=== PATIENT | male | born 1950 | race American Indian/Alaskan Native ===

== ENCOUNTER 2017-08-18 00:49 | Inpatient (IN) | payer OTHER ==
[2017-08-18 02:27] LABS: Basophils % (Auto) 0.5 % (0.0-1.8); Eosinophils % (Auto) 0.6 % (0.0-4.3); Hematocrit 26.3 % (35.5-45.6); Hemoglobin 8.5 gm/dl (11.8-15.2); Lymphocytes # (Auto) 0.6 K/mm3 (1.2-5.4); Lymphocytes % (Auto) 8.1 % (13.4-35.0); Mean Corpuscular HGB Conc 32 % (32-34); Mean Corpuscular Hemoglobin 28 pg (28-32); Mean Corpuscular Volume 86 fl (84-94); Monocytes # (Auto) 0.6 K/mm3 (0.0-0.8); Monocytes % (Auto) 7.8 % (0.0-7.3); Platelet Count 398 K/mm3 (140-440); Red Blood Count 3.07 M/mm3 (3.65-5.03); Red Cell Distribution Width 15.7 % (13.2-15.2)
--- NOTE | 2017-08-18 02:31 | XRay Report ---
FINAL REPORT EXAM: XR CHEST ROUTINE 2V HISTORY: Shortness of breath COMPARISON: None available. FINDINGS:: Frontal and lateral views of the chest obtained. Mild cardiac enlargement. Small to moderate bilateral pleural effusions and airspace consolidations at the lung bases. Mid to upper lungs are clear. No pneumothorax. IMPRESSION:: Consolidation and effusions at the lung bases which could reflect bibasilar pneumonia or congestion.
[2017-08-18 02:46] LABS: Calcium 8.2 mg/dL (8.4-10.2)
[2017-08-18 06:27] LABS: INR 1.05 (0.87-1.13)
[2017-08-18 06:28] LABS: Partial Thromboplastin Time 39.4 Sec. (24.2-36.6)
[2017-08-18] MEDS ORDERED: LASIX IV ONE (06:35)
[2017-08-18] MEDS ORDERED: NITRO-BID 2% TP ONE (06:35)
[2017-08-18 07:05] LABS: Bacteria,Urine 2+ /HPF (Negative); Bilirubin,Urine NEG (Negative); Blood,Urine SM (Negative); Color,Urine Yellow (Yellow); Urobilinogen,Urine < 2.0 mg/dL (<2.0)
[2017-08-18 07:06] LABS: WBC,Urine > 182.0 /HPF (0.0-6.0)
[2017-08-18] MEDS ORDERED: ROCEPHIN/NS 1 GM/50 ML 1 GM/50 ML BAG IV ONE (07:11)
[2017-08-18 07:13] LABS: Amphetamine Screen,Urine PRESUMPTIVE NEGATIVE; Benzodiazepines Screen,Urine PRESUMPTIVE NEGATIVE; Cannabinoid Screen,Urine PRESUMPTIVE NEGATIVE; Chloride, Urine 54.4 mmolL (110-250); Cocaine Screen,Urine PRESUMPTIVE NEGATIVE; Methadone Screen,Urine PRESUMPTIVE NEGATIVE; Opiate Screen,Urine PRESUMPTIVE NEGATIVE
--- NOTE | 2017-08-18 07:15 | Emergency Department Report ---
ED Shortness of Breath HPI - General Chief Complaint: Dyspnea/Respdistress Stated Complaint: EDEMA EXTREMITIES Time Seen by Provider: 08/18/17 06:27 Source: patient, old records reviewed (1st vist) Mode of arrival: Ambulatory Limitations: No Limitations - History of Present Illness Initial Comments: 67-year-old male with a past medical history of hypertension (diagnosed 25 years ago and he has never taken medications) and surgical treatment for malignant myeloma in the 80s presents to the hospital with complaints of generalized swelling and dyspnea on exertion for at least 3 weeks that has been progressively worsening. Patient also has chronic orthopnea and can't remember the last time he was able lie flat. Patient denies chest pain, cough, or fever. Patient recently started taking [id number] herbal medication to help him urinate off the fluid PMD: None - Related Data Allergies Allergy/AdvReac Type Severity Reaction Status Date / Time No Known Allergies Allergy Unverified 08/18/17 01:59 ED Review of Systems ROS: Stated complaint: EDEMA EXTREMITIES Other details as noted in HPI Comment: Unobtainable due to pts medical conditions ED Past Medical Hx - Past Medical History Previous Medical History?: No - Surgical History Past Surgical History?: Yes Additional Surgical History: SX for malignant melanoma - Social History Smoking Status: Never Smoker Substance Use Type: None ED Physical Exam - General Limitations: No Limitations ED Course Vital Signs 08/18/17 08/18/17 08/18/17 01:50 04:47 05:37 Temperature 97.5 F L 98.4 F Pulse Rate 94 H 92 H Respiratory 24 20 Rate Blood Pressure 180/107 Blood Pressure 180/111 [Left] O2 Sat by Pulse 96 94 97 Oximetry 08/18/17 08/18/17 08/18/17 05:45 05:46 05:50 Temperature 97.6 F Pulse Rate 92 H 90 92 H Respiratory 14 17 14 Rate Blood Pressure 187/119 Blood Pressure 187/119 [Left] O2 Sat by Pulse 2 L 100 98 Oximetry 08/18/17 08/18/17 08/18/17 06:00 06:16 06:30 Temperature Pulse Rate 89 87 89 Respiratory 14 13 12 Rate Blood Pressure 189/122 189/122 189/122 Blood Pressure [Left] O2 Sat by Pulse 96 100 100 Oximetry 08/18/17 08/18/17 06:46 06:47 Temperature Pulse Rate 88 88 Respiratory 13 Rate Blood Pressure 187/112 187/112 Blood Pressure [Left] O2 Sat by Pulse 98 Oximetry - Consultations Consultation #1: 08/18/17 07:23 Dr Ruiz (cards) consulted, will evaluate pt Consultation #2: 08/18/17 07:[address] 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 will consult ED Medical Decision Making - Lab Data Result diagrams: 08/18/17 02:06 08/18/17 02:06 Lab Results 08/18/17 08/18/17 08/18/17 Range/Units 02:06 02:06 06:06 WBC 7.2 (4.5-11.0) K/mm3 RBC 3.07 L (3.65-5.03) M/mm3 Hgb 8.5 L (11.8-15.2) gm/dl Hct 26.3 L (35.5-45.6) % MCV 86 (84-94) fl MCH 28 (28-32) pg MCHC 32 (32-34) % RDW 15.7 H (13.2-15.2) % Plt Count 398 (140-440) K/mm3 Lymph % (Auto) 8.1 L (13.4-35.0) % [place] % (Auto) 7.8 H (0.0-7.3) % Eos % (Auto) 0.6 (0.0-4.3) % Baso % (Auto) 0.5 (0.0-1.8) % Lymph # 0.6 L (1.2-5.4) K/mm3 [place] # 0.6 (0.0-0.8) K/mm3 Eos # 0.0 (0.0-0.4) K/mm3 Baso # 0.0 (0.0-0.1) K/mm3 Seg Neutrophils % 83.0 H (40.0-70.0) % Seg Neutrophils # 6.0 (1.8-7.7) K/mm3 PT 14.3 (12.2-14.9) Sec. INR 1.05 (0.87-1.13) APTT 39.4 H (24.2-36.6) Sec. Sodium 143 (137-145) mmol/L Potassium 4.8 (3.6-5.0) mmol/L Chloride 108.0 H (98-107) mmol/L Carbon Dioxide 21 L (22-30) mmol/L Anion Gap 19 mmol/L BUN 35 H (9-20) mg/dL Creatinine 3.3 H (0.8-1.5) mg/dL Estimated GFR 23 ml/min BUN/Creatinine Ratio 11 % Glucose 76 (75-100) mg/dL Calcium 8.2 L (8.4-10.2) mg/dL Magnesium (1.7-2.3) mg/dL Total Creatine Kinase (55-170) units/L Troponin T (0.00-0.029) ng/mL NT-Pro-B Natriuret Pep (0-900) pg/mL Urine Color (Yellow) Urine Turbidity (Clear) Urine pH (5.0-7.0) Ur Specific [place] (1.003-1.030) Urine Protein (Negative) mg/dL Urine Glucose (UA) (Negative) mg/dL Urine Ketones (Negative) mg/dL Urine Blood (Negative) Urine Nitrite (Negative) Urine Bilirubin (Negative) Urine Urobilinogen (<2.0) mg/dL Ur Leukocyte Esterase (Negative) Urine WBC (Auto) (0.0-6.0) /HPF Urine RBC (Auto) (0.0-6.0) /HPF Urine Bacteria (Auto) (Negative) /HPF Urine WBC Clumps /HPF Urine Osmolality Mosm/kg Urine Sodium mmol/L Urine Chloride (110-250) mmolL Urine Opiates Screen Urine Methadone Screen Ur Barbiturates Screen Ur Phencyclidine Scrn Ur Amphetamines Screen U Benzodiazepines Scrn Urine Cocaine Screen U Marijuana (THC) Screen Drugs of Abuse Note 08/18/17 08/18/17 08/18/17 Range/Units 06:06 06:06 06:34 WBC (4.5-11.0) K/mm3 RBC (3.65-5.03) M/mm3 Hgb (11.8-15.2) gm/dl Hct (35.5-45.6) % MCV (84-94) fl MCH (28-32) pg MCHC (32-34) % RDW (13.2-15.2) % Plt Count (140-440) K/mm3 Lymph % (Auto) (13.4-35.0) % [place] % (Auto) (0.0-7.3) % Eos % (Auto) (0.0-4.3) % Baso % (Auto) (0.0-1.8) % Lymph # (1.2-5.4) K/mm3 [place] # (0.0-0.8) K/mm3 Eos # (0.0-0.4) K/mm3 Baso # (0.0-0.1) K/mm3 Seg Neutrophils % (40.0-70.0) % Seg Neutrophils # (1.8-7.7) K/mm3 PT (12.2-14.9) Sec. INR (0.87-1.13) APTT (24.2-36.6) Sec. Sodium (137-145) mmol/L Potassium (3.6-5.0) mmol/L Chloride (98-107) mmol/L Carbon Dioxide (22-30) mmol/L Anion Gap mmol/L BUN (9-20) mg/dL Creatinine (0.8-1.5) mg/dL Estimated GFR ml/min BUN/Creatinine Ratio % Glucose (75-100) mg/dL Calcium (8.4-10.2) mg/dL Magnesium 2.20 (1.7-2.3) mg/dL Total Creatine Kinase 92 (55-170) units/L Troponin T 0.027 (0.00-0.029) ng/mL NT-Pro-B Natriuret Pep 83820 H (0-900) pg/mL Urine Color Yellow (Yellow) Urine Turbidity Clear (Clear) Urine pH 5.0 (5.0-7.0) Ur Specific [place] 1.011 (1.003-1.030) Urine Protein 100 mg/dl (Negative) mg/dL Urine Glucose (UA) Neg (Negative) mg/dL Urine Ketones Neg (Negative) mg/dL Urine Blood Sm (Negative) Urine Nitrite Neg (Negative) Urine Bilirubin Neg (Negative) Urine Urobilinogen < 2.0 (<2.0) mg/dL Ur Leukocyte Esterase Lg (Negative) Urine WBC (Auto) > 182.0 H (0.0-6.0) /HPF Urine RBC (Auto) 14.0 (0.0-6.0) /HPF Urine Bacteria (Auto) 2+ (Negative) /HPF Urine WBC Clumps 3+ /HPF Urine Osmolality Mosm/kg Urine Sodium mmol/L Urine Chloride (110-250) mmolL Urine Opiates Screen Urine Methadone Screen Ur Barbiturates Screen Ur Phencyclidine Scrn Ur Amphetamines Screen U Benzodiazepines Scrn Urine Cocaine Screen U Marijuana (THC) Screen Drugs of Abuse Note 08/18/17 Range/Units 06:34 WBC (4.5-11.0) K/mm3 RBC (3.65-5.03) M/mm3 Hgb (11.8-15.2) gm/dl Hct (35.5-45.6) % MCV (84-94) fl MCH (28-32) pg MCHC (32-34) % RDW (13.2-15.2) % Plt Count (140-440) K/mm3 Lymph % (Auto) (13.4-35.0) % [place] % (Auto) (0.0-7.3) % Eos % (Auto) (0.0-4.3) % Baso % (Auto) (0.0-1.8) % Lymph # (1.2-5.4) K/mm3 [place] # (0.0-0.8) K/mm3 Eos # (0.0-0.4) K/mm3 Baso # (0.0-0.1) K/mm3 Seg Neutrophils % (40.0-70.0) % Seg Neutrophils # (1.8-7.7) K/mm3 PT (12.2-14.9) Sec. INR (0.87-1.13) APTT (24.2-36.6) Sec. Sodium (137-145) mmol/L Potassium (3.6-5.0) mmol/L Chloride (98-107) mmol/L Carbon Dioxide (22-30) mmol/L Anion Gap mmol/L BUN (9-20) mg/dL Creatinine (0.8-1.5) mg/dL Estimated GFR ml/min BUN/Creatinine Ratio % Glucose (75-100) mg/dL Calcium (8.4-10.2) mg/dL Magnesium (1.7-2.3) mg/dL Total Creatine Kinase (55-170) units/L Troponin T (0.00-0.029) ng/mL NT-Pro-B Natriuret Pep (0-900) pg/mL Urine Color (Yellow) Urine Turbidity (Clear) Urine pH (5.0-7.0) Ur Specific [place] (1.003-1.030) Urine Protein (Negative) mg/dL Urine Glucose (UA) (Negative) mg/dL Urine Ketones (Negative) mg/dL Urine Blood (Negative) Urine Nitrite (Negative) Urine Bilirubin (Negative) Urine Urobilinogen (<2.0) mg/dL Ur Leukocyte Esterase (Negative) Urine WBC (Auto) (0.0-6.0) /HPF Urine RBC (Auto) (0.0-6.0) /HPF Urine Bacteria (Auto) (Negative) /HPF Urine WBC Clumps /HPF Urine Osmolality 328 Mosm/kg Urine Sodium 57 mmol/L Urine Chloride 54.4 L (110-250) mmolL Urine Opiates Screen Presumptive negative Urine Methadone Screen Presumptive negative Ur Barbiturates Screen Presumptive negative Ur Phencyclidine Scrn Presumptive negative Ur Amphetamines Screen Presumptive negative U Benzodiazepines Scrn Presumptive negative Urine Cocaine Screen Presumptive negative U Marijuana (THC) Screen Presumptive negative Drugs of Abuse Note Disclamer - EKG Data -: EKG Interpreted by Ak EKG shows normal: sinus rhythm, axis (71), QRS complexes (86), ST-T waves ( nonspecific t abnl) Rate: normal (71) - EKG Data When compared to previous EKG there are: previous EKG unavailable - Radiology Data Radiology results: report reviewed cxr PA and lat FINDINGS:: Frontal and lateral views of the chest obtained. Mild cardiac enlargement. Small to moderate bilateral pleural effusions and airspace consolidations at the lung bases. Mid to upper lungs are clear. No pneumothorax. IMPRESSION:: Consolidation and effusions at the lung bases which could reflect bibasilar pneumonia or congestio - Medical Decision Making Uncontrolled hypertension Patient has never been on medication Nitropaste ordered Newly diagnosed heart failure Likely secondary to noncompliance Lasix initiated Cardiology consultation Newly diagnosed renal failure Nephrology consulted Urine electrolytes pending UTI Rocephin initiated Culture pending - Differential Diagnosis CHF, renal failure, hypertensive emergency/urgency Critical Care Time: No Critical care attestation.: If time is entered above; I have spent that time in minutes in the direct care of this critically ill patient, excluding procedure time. ED Disposition Clinical Impression: Hypertension, uncontrolled, Noncompliance with medication regimen, Acute CHF ( congestive heart failure), Renal insufficiency, UTI (urinary tract infection), Anemia Disposition: DC-[id number] OP ADMIT IP TO THIS HOSP Is pt being admited?: Yes Condition: Stable Referrals: PRIMARY CARE,MD [Primary Care Provider] - 3-5 Days Time of Disposition: 07:13 (Hospitalist/Summer/Gabriella)
[2017-08-18 07:21] LABS: Osmolality,Urine 328 Mosm/kg
--- NOTE | 2017-08-18 07:40 | History and Physical Report ---
History of Present Illness Date of examination: 08/18/17 Date of admission: 08/18/17 Chief complaint: breathing difficulty History of present illness: 67-year-old male with a past medical history of hypertension (diagnosed 25 years ago and he has never taken medications) presented to the hospital with complaints of generalized swelling and progressively worsening dyspnea on exertion for at least 3 weeks. Patient also c/o chronic orthopnea and can't remember the last time he was able lie flat. Patient denies chest pain, cough, or fever. In the ER his blood pressure was 180/107 on presentation. Initial labs notable for a creatinine of 3.3 and a hematocrit of 26.3. Patient will be admitted for further workup and management. Past medical History: h/o HTN Past surgical History: s/p surgical resection of MM about 30 years ago Social History: Lives with family, denies any smoking, drinking and elicit drug abuse. Family History: Significant for HTN in mother Review of System: Constitutional: no fever, no chills, no weight loss Ears, eyes, nose, mouth and throat: no nasal congestion, no nasal discharge, no sinus pressure, no vision change, no red eye. Neck: No neck pain or rigidity. Cardiovascular: No chest pain, + orthopnea, no palpitations, + leg swelling Respiratory: + shortness of breath, no cough, no congestion, no wheezing Gastrointestinal: no abdominal pain, no nausea, no vomiting Genitourinary : no dysuria, no hematuria Musculoskeletal: no joint swelling or muscle ache Integumentary: no rash, no pruritis Neurological: no parathesias, no numbness, no tingling Endocrine: no cold or heat intolerance, no polyuria or polydipsia Hematologic/Lymphatic: no easy bruising, no easy bleeding, no gland swelling Allergic/Immunologic: no urticaria, no angioedema. Medications and Allergies Allergies Allergy/AdvReac Type Severity Reaction Status Date / Time No Known Allergies Allergy Unverified 08/18/17 01:59 Home Medications Medication Instructions Recorded Confirmed Last Taken Type No Known Home Medications [No 08/18/17 08/18/17 Unknown History Reported Home Medications] Active Meds: Active Medications Amlodipine Besylate (Norvasc) 10 mg PO ONCE ONE Stop: 08/18/17 07:38 Carvedilol (Coreg) 3.125 mg PO ONCE ONE Stop: 08/18/17 07:38 Ceftriaxone Sodium (Rocephin/Ns 1 Gm/50 Ml) 1 gm in 50 mls @ 100 mls/hr IV ONCE ONE; Protocol Stop: 08/18/17 07:40 Exam - Physical Exam Narrative exam: GENERAL: elderly AAM lying on bed appeared to be in mild discomfort. HEENT: Normocephalic. Atraumatic. No conjunctival congestion or icterus. Patient has moist mucous membranes. NECK: Supple. Trachea midline. CHEST/LUNGS: Ccrackles auscultated bilaterally, breathing nonlabored. No wheezes or rhonchi. HEART/CARDIOVASCULAR: Regular in rate and rhythm. S1 and S2 positive. ABDOMEN: Abdomen is soft, nontender. Patient has normal bowel sounds. SKIN: There is no rash. Warm and dry. NEURO: No focal motor deficit. Follows command. MUSCULOSKELETAL: No joint effusion or tenderness. EXTRIMITY: 3+ edema, no cyanosis or clubbing. PSYCH: Cooperative. - Constitutional Vitals: Temp Pulse Resp BP Pulse Ox 97.6 F 88 13 187/112 98 08/18/17 05:50 08/18/17 06:47 08/18/17 06:46 08/18/17 06:47 08/18/17 06:46 Results - Labs CBC & Chem 7: 08/18/17 02:06 08/19/17 10:19 Labs: Abnormal lab results 08/18/17 08/18/17 08/18/17 Range/Units 02:06 02:06 06:06 RBC 3.07 L (3.65-5.03) M/mm3 Hgb 8.5 L (11.8-15.2) gm/dl Hct 26.3 L (35.5-45.6) % RDW 15.7 H (13.2-15.2) % Lymph % (Auto) 8.1 L (13.4-35.0) % [place] % (Auto) 7.8 H (0.0-7.3) % Lymph # 0.6 L (1.2-5.4) K/mm3 Seg Neutrophils % 83.0 H (40.0-70.0) % APTT 39.4 H (24.2-36.6) Sec. Chloride 108.0 H (98-107) mmol/L Carbon Dioxide 21 L (22-30) mmol/L BUN 35 H (9-20) mg/dL Creatinine 3.3 H (0.8-1.5) mg/dL Calcium 8.2 L (8.4-10.2) mg/dL NT-Pro-B Natriuret Pep (0-900) pg/mL Urine WBC (Auto) (0.0-6.0) /HPF Urine Chloride (110-250) mmolL 08/18/17 08/18/17 08/18/17 Range/Units 06:06 06:34 06:34 RBC (3.65-5.03) M/mm3 Hgb (11.8-15.2) gm/dl Hct (35.5-45.6) % RDW (13.2-15.2) % Lymph % (Auto) (13.4-35.0) % [place] % (Auto) (0.0-7.3) % Lymph # (1.2-5.4) K/mm3 Seg Neutrophils % (40.0-70.0) % APTT (24.2-36.6) Sec. Chloride (98-107) mmol/L Carbon Dioxide (22-30) mmol/L BUN (9-20) mg/dL Creatinine (0.8-1.5) mg/dL Calcium (8.4-10.2) mg/dL NT-Pro-B Natriuret Pep 96634 H (0-900) pg/mL Urine WBC (Auto) > 182.0 H (0.0-6.0) /HPF Urine Chloride 54.4 L (110-250) mmolL - Imaging and Cardiology Chest x-ray: report reviewed (consolidation at lung bases) Assessment and Plan Acute respiratory failure -Likely from underlying pneumonia versus possible CHF exacerbation - - We'll admit the patient to telemetry - Will provide scheduled nebulizers and breathing treatment - Place on empiric antibiotic - will get sputum culture, chest x-ray showed possible bilateral pneumonia vs effusion - Provide supplemental oxygen to keep oxygen saturation above 92% -We will also give 1 dose of Lasix for possible CHF will obtain 2-D echo, Bilateral pneumonia versus primary physician - We'll place on antibiotics and Lasix - Repeat chest x-ray tomorrow morning UTI, continue antibiotics, follow culture Hypertensive urgency - We will place on Norflex and Coreg, monitor BP , as needed IV hydralazine Acute renal failure - We'll monitor renal function carefully - Nephrology consulted in the ER, ordered renal Ultrasound Provide DVT prophylaxis with heparin and GI prophylaxis with Pepcid.
[2017-08-18] MEDS ORDERED: COREG PO NR (08:00)
[2017-08-18] MEDS ORDERED: NORVASC PO NR (08:00)
[2017-08-18] MEDS ORDERED: cefTRIAXone 1 GM in NACL 0.9% 20 ML IV ONE (08:00)
--- NOTE | 2017-08-18 09:05 | Consultation ---
History of Present Illness - History of Present Illness Thank you for the consultation patient was evaluated today. Source of information; patient himself History of presenting illness; Patient is a very pleasant 67-year-old -[place] male with long-standing history of hypertension diagnosed by Dr. Caldera, approximately 25 years ago and was later suggested to start medications for blood pressure however did not want to commit to a blood pressure medication for life and change to a vegan diet. Remotely he has a history of malignant melanoma of the right shoulder which was resected in and ever since admission, presented to hospital with complaints of increasing shortness of breath and worsening edema upon further verification patient stated that his leg started swelling ever since last 6 months and currently the swelling is all the way up to his lower abdomen. He finds very difficult to walk and often times would get shortness of breath, he has not had any blood work done for the last many many years so we do not know his baseline kidney function, he has no known history of any lupus hepatitis B C paraproteinemias are HIV No history of any frequent epistaxis, unexplained skin rashes or arthralgias myalgias, no difficulty voiding does not take any form of nonsteroidal drugs BCs of Goody's powder Past medical history significant for: Long-standing hypertension control is not clear Worsening edema Chronic noncompliance Malignant melanoma Current allergies: None Home medication: None Social history no recent history alcohol drug or tobacco use Family history: Noncontributory, for renal related issues Review of system is positive for worsening swelling shortness of breath, weight gain approximately 40 pounds over last 6 months or so, uncontrolled hypertension noted All other review of systems are negative , Labs and x-rays: Were reviewed from the current chart Physical examination General: No acute distress HEENT: Oral mucosa moist no pharyngeal erythema no pallor or icterus no uremic order Neck: Supple no evidence of any thyromegaly trachea midline no JVD Chest: Clear to auscultation no crackles are also wheezes anteriorly Heart: Regular rate and rhythm S1-S2 heard no S3-S4 Abdomen: Soft nontender no renal bruit no CVA tenderness no suprapubic fullness no organomegaly, some edema of the lower abdominal wall Extremity:dry skin assessment and plan no peripheral cyanosis pulses palpable, 2 + edema generalized all the way up to the thigh Neurological: Alert awake follows command grossly nonfocal examination Back: Nontender thoracolumbar spine Musculoskeletal: No joint effusion noted Skin: No petechial rash/noted Assessment and plan Moderately severe renal failure and the patient was 67-year-old has long- standing history of hypertension never took any medications presenting with severe generalized anasarca-like picture shortness of breath elevated proBNP uncontrolled hypertension anemia Likely we are dealing with a case of chronic kidney disease: Patient will need further workup for renal failure, anemia Proteinuria: Need to do a 24-hour urine for protein creatinine and creatinine clearance Anemia: Requires further workup accelerated hypertension: Needs monitoring and adjustment of blood pressure medication Congestive heart failure likely resulting from fluid overload Pyuria rule out urinary tract infection, obstruction check ultrasonogram urine culture We will order for all renal-related labs Check aldosterone and plasma renin level due to uncontrolled hypertension,to rule out any possibility of secondary hypertension, need to rule out any possibility of sleep apnea Renal prognosis is guarded patient is aware about the degree and severity of renal failure, explained him that there is no immediate need for renal replacement therapy at this time but could not be excluded in near future, we' ll look for any causes that could be reversible Adequately counseled and educated regarding multiple renal-related issues Patient does have good understanding about renal-related issues. Counseled and educated to get further education from [facility] and related links, and upon discharge to make a follow-up appointment in the office We'll continue to follow and make recommendations from renal standpoint. If you have any questions please feel free to contact me at [phone] Thank you for the consultation. Medications and Allergies Allergies Allergy/AdvReac Type Severity Reaction Status Date / Time No Known Allergies Allergy Unverified 08/18/17 01:59 Home Medications Medication Instructions Recorded Confirmed Last Taken Type No Known Home Medications [No 08/18/17 08/18/17 Unknown History Reported Home Medications] Exam - Vital Signs Vital signs: Vital Signs Temp Pulse Resp BP Pulse Ox 97.5 F L 94 H 24 180/107 96 08/18/17 01:50 08/18/17 01:50 08/18/17 01:50 08/18/17 01:50 08/18/17 01:50 Results - Lab Results 08/18/17 02:06 08/18/17 02:06 Most recent lab results Calcium 8.2 mg/dL (8.4-10.2) L 08/18/17 02:06 Magnesium 2.20 mg/dL (1.7-2.3) 08/18/17 06:06 Urine Sodium 57 mmol/L 08/18/17 06:34
[2017-08-18] MEDS ORDERED: cefTRIAXone 1 GM in NACL 0.9% 20 ML IV SCH (10:00)
--- NOTE | 2017-08-18 10:15 | Consultation ---
History of Present Illness Consult date: 08/18/17 Consult reason: congestive heart failure History of present illness: This is a 67yr old male who gives a history of Hypertension and has not taken any medications or seen a physician in several years. He presented to the emergency room with a 4 week history of shortness of breath and severe edema extending upwards to his thighs. He denies chest pain. Blood pressure of 180/ 107 on presentation. Labs notable for a creatinine of 3.3 and a hematocrit of 26.3. Patient was admitted for further workup, cardiac consultation was requested for CHF evaluation. ECG is a sinus rhythm, no acute ischemic changes. Medications and Allergies Allergies Allergy/AdvReac Type Severity Reaction Status Date / Time No Known Allergies Allergy Unverified 08/18/17 01:59 Home Medications Medication Instructions Recorded Confirmed Last Taken Type No Known Home Medications [No 08/18/17 08/18/17 Unknown History Reported Home Medications] Physical Examination Vital Signs Temp Pulse Resp BP Pulse Ox 97.5 F L 94 H 24 180/107 96 08/18/17 01:50 08/18/17 01:50 08/18/17 01:50 08/18/17 01:50 08/18/17 01:50 General appearance: no acute distress HEENT: Positive: PERRL Cardiac: Positive: Reg Rate and Rhythm Lungs: Positive: Decreased Breath Sounds Neuro: Positive: Grossly Intact Extremities: Present: +3 Edema Results 08/18/17 02:06 08/18/17 02:06 Coagulation 08/18/17 Range/Units 06:06 PT 14.3 (12.2-14.9) Sec. INR 1.05 (0.87-1.13) APTT 39.4 H (24.2-36.6) Sec. CBC 08/18/17 Range/Units 02:06 WBC 7.2 (4.5-11.0) K/mm3 RBC 3.07 L (3.65-5.03) M/mm3 Hgb 8.5 L (11.8-15.2) gm/dl Hct 26.3 L (35.5-45.6) % Plt Count 398 (140-440) K/mm3 Lymph # 0.6 L (1.2-5.4) K/mm3 [place] # 0.6 (0.0-0.8) K/mm3 Eos # 0.0 (0.0-0.4) K/mm3 Baso # 0.0 (0.0-0.1) K/mm3 Comprehensive Metabolic Panel 08/18/17 Range/Units 02:06 Sodium 143 (137-145) mmol/L Potassium 4.8 (3.6-5.0) mmol/L Chloride 108.0 H (98-107) mmol/L Carbon Dioxide 21 L (22-30) mmol/L BUN 35 H (9-20) mg/dL Creatinine 3.3 H (0.8-1.5) mg/dL Glucose 76 (75-100) mg/dL Calcium 8.2 L (8.4-10.2) mg/dL Assessment and Plan Acute CHF, undetermined Acute renal failure Anemia Hypertension
[2017-08-18] MEDS ORDERED: APRESOLINE IV PRN (11:42)
[2017-08-18] MEDS ORDERED: NORCO 5/325 PO PRN (11:42)
[2017-08-18] MEDS: NORVASC PO SCH (12:01)
[2017-08-18] MEDS: ASPIRIN PO SCH (13:01)
[2017-08-18] MEDS: APRESOLINE PO SCH ×2 (14:11→22:42)
[2017-08-18] MEDS ORDERED: LEVAQUIN 750MG/150ML 750 MG/150 ML BAG IV ONE (16:00)
--- NOTE | 2017-08-18 16:01 | Ultrasound Report ---
FINAL REPORT EXAM: US RENAL BILAT HISTORY: renal failure TECHNIQUE: Grayscale and color doppler ultrasound imaging of the kidneys and urinary bladder was performed. PRIORS: None. FINDINGS: Kidneys: Moderate bilateral hydronephrosis is seen. The maximum AP dimension of the right renal pelvis is 3.0 centimeters. Maximum AP dimension of the left renal pelvis is 1.9 centimeters. No renal masses. No calculi. No renal cysts. No renal cortical thinning. The right kidney measures 11.5 x 5.8 x 6.9 centimeters. The left kidney measures 11.7 x 5.9 x 6.5 centimeters. Urinary bladder: No wall thickening. A lobulated masslike lesion is seen in the posterior aspect of the urinary bladder measuring 2.7 x 2.2 x 2.7 centimeters. No internal color flow is seen within this area. Bilateral pleural effusions are seen. IMPRESSION: 1. Lobulated masslike area in the posterior aspect of the urinary bladder may represent loculated debris versus a bladder mass. 2. Moderate bilateral hydronephrosis. 3. Bilateral pleural effusions.
[2017-08-18] MEDS: PEPCID PO SCH (22:26)
[2017-08-18] MEDS: COREG PO SCH (22:27)
[2017-08-18] MEDS: HEPARIN SUB-Q SCH (22:27)
[2017-08-18] MEDS: COLACE PO SCH (22:27)
[2017-08-19 06:28] LABS: Calcium 7.9 mg/dL (8.4-10.2)
[2017-08-19] MEDS: APRESOLINE PO SCH ×3 (06:55→21:27)
--- NOTE | 2017-08-19 09:50 | Progress Note ---
Subjective Interval history: Patient was seen today for follow-up on multiple renal related issues Events of this hospitalization noted He is getting much better idea of his renal failure now Patient denies having any chest pain pressure or shortness of breath Vitals labs intake output medications were reviewed Social history: Reviewed Allergies: Reviewed Family history: Reviewed Physical examination HEENT: Oral mucosa moist no pallor or icterus Neck: Supple no JVD Chest: Bilateral basilar crackles CVS: Regular rate and rhythm S1 and S2 heard Abdomen: Soft nontender no suprapubic masses no organomegaly appreciable Extremity: 2+ edema all the way up to mid abdomen Musculoskeletal: No joint effusion noted in knees and ankle Neurological: Alert awake Dermatology: No petechial rashes Psychiatry: No evidence of any agitation and aggression noted Assessment and plan Renal failure likely chronic patient does have multiple risk factor for underlying chronic kidney disease primarily uncontrolled hypertension workup is in progress for now to follow current creatinine is stable at 3.4 Ultrasonogram shows possible bladder mass as well as hydronephrosis please consider urology evaluation Santana catheter for now and follow-up Admitted with congestive heart failure likely picture, generalized anasarca continue to diurese as tolerated with combination off loop diuretic's, as well as Aldactone would not initiate any form of FELICIANO inhibitors or angiotensin receptor aaron for now Anemia most likely resulting from chronic kidney disease to monitor and follow Pyuria current culture is pending Proteinuria approximately 100 mg and random urine specimen Will need 24-hour urine collection to appropriately stages renal failure and monitor his renal function Uncontrolled hypertension with relatively normal potassium check chetna plasma renin level and follow Accelerated hypertension: Currently much better controlled Renal prognosis guarded to poor S patient has never followed up with physician for last 2 decades and was told to have hypertension approximately 25 years ago but never treated Patient was adequately counseled and educated regarding multiple renal related issues Pertinent lab findings were discussed with patient, patient does exhibit good understanding of renal issues We'll continue to follow and make recommendation from renal standpoint Objective - Vital Signs Vital signs: Vital Signs - 12hr 08/18/17 08/18/17 08/18/17 22:00 22:13 22:27 Temperature Pulse Rate 88 87 Pulse Rate [ 87 Left Radial] Respiratory 18 Rate Blood Pressure 110/80 Blood Pressure [Left] O2 Sat by Pulse Oximetry 08/18/17 08/19/17 08/19/17 22:42 00:19 06:36 Temperature 97.3 F L 97.9 F Pulse Rate 87 80 78 Pulse Rate [ Left Radial] Respiratory 20 20 Rate Blood Pressure 110/80 132/81 136/70 Blood Pressure [Left] O2 Sat by Pulse 97 96 Oximetry 08/19/17 08/19/17 06:55 07:37 Temperature 98.6 F Pulse Rate 78 81 Pulse Rate [ Left Radial] Respiratory 20 Rate Blood Pressure 136/70 Blood Pressure 142/89 [Left] O2 Sat by Pulse 98 Oximetry - Lab 08/18/17 02:06 08/19/17 10:19 Most recent lab results Calcium 7.9 mg/dL (8.4-10.2) L 08/19/17 05:07 Magnesium 2.20 mg/dL (1.7-2.3) 08/18/17 06:06 Urine Sodium 57 mmol/L 08/18/17 06:34
[2017-08-19] MEDS ORDERED: ROCEPHIN/NS 1 GM/50 ML 1 GM/50 ML BAG IV SCH (10:00)
[2017-08-19] MEDS ORDERED: LASIX IV SCH (10:00)
[2017-08-19] MEDS: NORVASC PO SCH (10:17)
[2017-08-19] MEDS: COLACE PO SCH ×2 (10:17→21:27)
[2017-08-19] MEDS: PEPCID PO SCH ×2 (10:17→21:27)
[2017-08-19] MEDS: COREG PO SCH ×2 (10:17→21:27)
[2017-08-19] MEDS: ASPIRIN PO SCH (10:18)
[2017-08-19] MEDS: cefTRIAXone 1 GM in NACL 0.9% 20 ML IV SCH (10:18)
[2017-08-19] MEDS: HEPARIN SUB-Q SCH ×2 (10:19→21:26)
--- NOTE | 2017-08-19 10:46 | Progress Note ---
Assessment and Plan Acute CHF, undetermined Acute on chronic renal failure Anemia Bilateral pleural effusions Hypertension Echocardiogram results are pending. Subjective Date of service: 08/19/17 Interval history: Patient is still short of breath. He denies chest pain. Objective Vital Signs Temp Pulse Pulse Resp BP BP Pulse Ox 08/19/17 07:37 98.6 F 81 20 142/89 98 08/19/17 06:55 78 136/70 08/19/17 06:36 97.9 F 78 20 136/70 96 08/19/17 00:19 97.3 F L 80 20 132/81 97 08/18/17 22:42 87 110/80 08/18/17 22:27 87 110/80 08/18/17 22:13 88 08/18/17 22:00 87 18 08/18/17 20:06 98.4 F 87 20 110/80 92 08/18/17 16:58 97.9 F 85 20 141/86 98 08/18/17 12:10 97.8 F 88 20 179/106 96 - Physical Examination General: No Apparent Distress HEENT: Positive: PERRL Cardiac: Positive: Reg Rate and Rhythm Lungs: Positive: Decreased Breath Sounds Neuro: Positive: Grossly Intact Extremities: Present: +3 Edema - Labs and Meds Comprehensive Metabolic Panel 08/19/17 Range/Units 05:07 Sodium 144 (137-145) mmol/L Potassium 4.2 (3.6-5.0) mmol/L Chloride 109.3 H (98-107) mmol/L Carbon Dioxide 23 (22-30) mmol/L BUN 35 H (9-20) mg/dL Creatinine 3.4 H (0.8-1.5) mg/dL Glucose 83 (75-100) mg/dL Calcium 7.9 L (8.4-10.2) mg/dL
[2017-08-19 11:25] LABS: Creatinine,Urine 42.7 mg/dL (0.1-20.0)
--- NOTE | 2017-08-19 14:08 | Progress Note ---
Assessment and Plan Acute respiratory failure -Likely from underlying pleural effusion and acute CHF exacerbation - chest x-ray showed possible bilateral effusion - Provide supplemental oxygen to keep oxygen saturation above 92% -We will cont Lasix iv bid Acute CHF with systolic dysfuction - 2d echo showed EF 15-20% - cont lasix, BB - cardiology following Volume overload with generalized anasarca - from acute CHF and renal failure - daily wt, monitor ins/os Bilateral pleural effusion - We'll cont Lasix - Repeat chest x-ray to monitor UTI, continue antibiotics, follow culture Bilateral hydronephrosis with possible bladder mass - will consult urology Hypertensive urgency - We will cont on norvasc, lasix, imdur and Coreg, monitor BP , as needed IV hydralazine Acute renal failure - We'll monitor renal function carefully - Nephrology consulted in the ER, renal Ultrasound showed hydronephrosis and possible bladder mass Provide DVT prophylaxis with heparin and GI prophylaxis with Pepcid. Brief history: 67-year-old male with a past medical history of hypertension (diagnosed 25 years ago and he has never taken medications) presented to the hospital with complaints of generalized swelling and progressively worsening dyspnea on exertion for at least 3 weeks. Patient also c/o chronic orthopnea and can't remember the last time he was able lie flat. Patient denies chest pain, cough, or fever. In the ER his blood pressure was 180/107 on presentation. Initial labs notable for a creatinine of 3.3 and a hematocrit of 26.3. Patient will be admitted for further workup and management. Radiological test: Renal ultrasound: No. Masslike area in the posterior aspect of the urinary bladder may represent loculated depressed versus a bladder mass. Moderate bilateral hydronephrosis, bilateral pleural effusion. Chest x-ray: Consolidation and effusions at the lung bases which would really like bibasilar pneumonia or congestion Hospitalist Physical exam: GENERAL: elderly AAM lying on bed appeared to be in mild discomfort. HEENT: Normocephalic. Atraumatic. No conjunctival congestion or icterus. Patient has moist mucous membranes. NECK: Supple. Trachea midline. CHEST/LUNGS: Ccrackles auscultated bilaterally, breathing nonlabored. No wheezes or rhonchi. HEART/CARDIOVASCULAR: Regular in rate and rhythm. S1 and S2 positive. ABDOMEN: Abdomen is soft, nontender. Patient has normal bowel sounds. SKIN: There is no rash. Warm and dry. NEURO: No focal motor deficit. Follows command. MUSCULOSKELETAL: No joint effusion or tenderness. EXTRIMITY: 3+ edema, no cyanosis or clubbing. PSYCH: Cooperative. Subjective Date of service: 08/19/17 Interval history: Patient seen and examined. Medical records and medication list reviewed. No acute event overnight noted by the RN. Patient denies any chest pain, still has difficulty breathing on minimal exertion. Patient is tolerating diet. still has significant LE swelling Discussed plan of care at bedside with patient. Objective - Constitutional Vitals: Vital Signs - 12hr 08/19/17 08/19/17 08/19/17 06:36 06:55 07:37 Temperature 97.9 F 98.6 F Pulse Rate 78 78 81 Pulse Rate [ From Monitor] Respiratory 20 20 Rate Blood Pressure 136/70 136/70 Blood Pressure 142/89 [Left] O2 Sat by Pulse 96 98 Oximetry 08/19/17 10:00 Temperature Pulse Rate 89 Pulse Rate [ 81 From Monitor] Respiratory 20 Rate Blood Pressure Blood Pressure [Left] O2 Sat by Pulse 98 Oximetry - Labs CBC & Chem 7: 08/18/17 02:06 08/19/17 10:19 Labs: Abnormal lab results 08/19/17 08/19/17 08/19/17 Range/Units 05:07 10:19 Unknown Chloride 109.3 H (98-107) mmol/L BUN 35 H (9-20) mg/dL Creatinine 3.4 H 3.3 H (0.8-1.5) mg/dL Calcium 7.9 L (8.4-10.2) mg/dL Urine Creatinine 42.7 H (0.1-20.0) mg/dL Urine Total Protein 41 H (5-11.8) mg/dL
[2017-08-19] MEDS: LASIX IV SCH (17:37)
[2017-08-19 21:23] LABS: Alanine Aminotransferase 14 units/L (7-56); Albumin 2.4 g/dL (3.9-5)
[2017-08-19 21:27] LABS: Bilirubin,Direct < 0.2 mg/dL (0-0.2)
[2017-08-19] MEDS: ISORDIL TITRADOSE PO SCH (21:27)
[2017-08-19] MEDS: MILRINONE-D5W 20 MG/100 ML 20 MG/100 ML BAG IV SCH (21:34)
[2017-08-20] MEDS: APRESOLINE PO SCH ×3 (05:08→22:15)
[2017-08-20] MEDS: LASIX IV SCH ×2 (05:08→17:29)
[2017-08-20] MEDS: ISORDIL TITRADOSE PO SCH ×3 (05:09→22:14)
[2017-08-20] MEDS: MILRINONE-D5W 20 MG/100 ML 20 MG/100 ML BAG IV SCH ×3 (05:15→22:22)
[2017-08-20 07:03] LABS: Calcium 7.8 mg/dL (8.4-10.2)
[2017-08-20] MEDS: cefTRIAXone 1 GM in NACL 0.9% 20 ML IV SCH (09:34)
[2017-08-20] MEDS: HEPARIN SUB-Q SCH ×2 (09:34→22:15)
[2017-08-20] MEDS: COLACE PO SCH ×2 (09:35→22:15)
[2017-08-20] MEDS: COREG PO SCH ×2 (09:35→22:15)
[2017-08-20] MEDS: PEPCID PO SCH ×2 (09:35→22:15)
[2017-08-20] MEDS: NORVASC PO SCH (09:35)
[2017-08-20] MEDS: ASPIRIN PO SCH (09:35)
--- NOTE | 2017-08-20 11:16 | Progress Note ---
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 Strict I&O's Fluid/Sodium restriction. Daily weight. Subjective Date of service: 08/20/17 Interval history: Patient has no complaints. Currently on IV milrinone. Admits he is diuresing well. Objective Vital Signs Temp Pulse Resp BP BP Pulse Ox 08/20/17 08:25 97.9 F 91 H 20 132/69 96 08/20/17 05:16 98.9 F 87 18 125/83 97 08/20/17 00:00 100/62 08/19/17 22:00 78 20 08/19/17 20:07 97.7 F 73 20 140/80 97 08/19/17 19:43 79 140/80 97 08/19/17 16:01 97.5 F L 76 18 142/85 96 - Physical Examination General: No Apparent Distress HEENT: Positive: PERRL Cardiac: Positive: Reg Rate and Rhythm Lungs: Positive: Decreased Breath Sounds Neuro: Positive: Grossly Intact Extremities: Present: +3 Edema - Labs and Meds Cardiac Enzymes 08/19/17 Range/Units 20:22 AST 12 (5-40) units/L Comprehensive Metabolic Panel 08/19/17 08/20/17 Range/Units 20:22 05:44 Sodium 143 (137-145) mmol/L Potassium 3.8 (3.6-5.0) mmol/L Chloride 108.0 H (98-107) mmol/L Carbon Dioxide 24 (22-30) mmol/L BUN 35 H (9-20) mg/dL Creatinine 3.4 H (0.8-1.5) mg/dL Glucose 88 (75-100) mg/dL Calcium 7.8 L (8.4-10.2) mg/dL Direct Bilirubin < 0.2 (0-0.2) mg/dL Indirect Bilirubin 0.0 mg/dL AST 12 (5-40) units/L ALT 14 (7-56) units/L Alkaline Phosphatase 62 (35-129) units/L Total Protein 5.6 L (6.3-8.2) g/dL Albumin 2.4 L (3.9-5) g/dL
--- NOTE | 2017-08-20 12:07 | Progress Note ---
Assessment and Plan Impression: * MEREDITH * obstructive uropathy * UTI * Cardiomyopathy--ef 15% * Trae Hydronephrosis * bladder mass * HTN Plan: * continue iv abx * barfield to be placed * 24hr dumped, restart collection * urology to evaluate bladder mass, obstruction * daily lytes * avoid nephrotoxins * watch for post ob diuresis * gentle diuresis Subjective Date of service: 08/20/17 Principal diagnosis: meredith, obstructive uropathy Interval history: resting well in bed today Objective - Exam Narrative Exam: GENERAL: elderly AAM lying on bed appeared to be in mild discomfort. HEENT: Normocephalic. Atraumatic. No conjunctival congestion or icterus. Patient has moist mucous membranes. NECK: Supple. Trachea midline. CHEST/LUNGS: Ccrackles auscultated bilaterally, breathing nonlabored. No wheezes or rhonchi. HEART/CARDIOVASCULAR: Regular in rate and rhythm. S1 and S2 positive. ABDOMEN: Abdomen is soft, nontender. Patient has normal bowel sounds. SKIN: There is no rash. Warm and dry. NEURO: No focal motor deficit. Follows command. - Vital Signs Vital signs: Vital Signs - 12hr 08/20/17 08/20/17 08/20/17 05:16 08:25 10:00 Temperature 98.9 F 97.9 F Pulse Rate 87 91 H 86 Pulse Rate [ 86 From Monitor] Respiratory 18 20 20 Rate Blood Pressure 125/83 132/69 [Left] O2 Sat by Pulse 97 96 98 Oximetry - Lab 08/18/17 02:06 08/20/17 05:44 Most recent lab results Calcium 7.8 mg/dL (8.4-10.2) L 08/20/17 05:44 Magnesium 2.20 mg/dL (1.7-2.3) 08/18/17 06:06 Urine Creatinine 42.7 mg/dL (0.1-20.0) H 08/19/17 Unknown Urine Sodium 80 mmol/L 08/19/17 Unknown Urine Total Protein 41 mg/dL (5-11.8) H 08/19/17 Unknown
--- NOTE | 2017-08-20 14:17 | Progress Note ---
Assessment and Plan barfield place and to remain dictated needs f/u cysto when cleared Subjective Date of service: 08/20/17 Principal diagnosis: karina, obstructive uropathy Objective - Constitutional Vitals: Vital Signs - 12hr 08/20/17 08/20/17 08/20/17 05:16 08:25 10:00 Temperature 98.9 F 97.9 F Pulse Rate 87 91 H 86 Pulse Rate [ 86 From Monitor] Respiratory 18 20 20 Rate Blood Pressure 125/83 132/69 [Left] O2 Sat by Pulse 97 96 98 Oximetry 08/20/17 08/20/17 11:14 11:15 Temperature 98.2 F Pulse Rate 95 H 91 H Pulse Rate [ From Monitor] Respiratory 20 Rate Blood Pressure 106/62 [Left] O2 Sat by Pulse 97 98 Oximetry General appearance: Present: mild distress - Respiratory Respiratory effort: labored Extremity abnormal: edema - Gastrointestinal General gastrointestinal: Present: other (anasarca) Rectal Exam: normal exam-external/orifice, normal rectal tone - Genitourinary Male genitourinary: tender - Labs CBC & Chem 7: 08/18/17 02:06 08/20/17 05:44 Labs: Abnormal lab results 08/19/17 08/20/17 Range/Units 20:22 05:44 Chloride 108.0 H (98-107) mmol/L BUN 35 H (9-20) mg/dL Creatinine 3.4 H (0.8-1.5) mg/dL Calcium 7.8 L (8.4-10.2) mg/dL Total Protein 5.6 L (6.3-8.2) g/dL Albumin 2.4 L (3.9-5) g/dL
--- NOTE | 2017-08-20 17:15 | Progress Note ---
Assessment and Plan Acute respiratory failure -Likely from underlying pleural effusion and acute CHF exacerbation - chest x-ray showed possible bilateral effusion - Provide supplemental oxygen to keep oxygen saturation above 92% -We will cont Lasix iv bid Acute CHF with systolic dysfuction - 2d echo showed EF 15-20% - cont lasix, BB - cardiology following Volume overload with generalized anasarca - from acute CHF and renal failure - daily wt, monitor ins/os Bilateral pleural effusion - We'll cont Lasix - Repeat chest x-ray to monitor UTI, continue antibiotics, follow culture Bilateral hydronephrosis with possible bladder mass - consulted urology, placed on barfield - need cystoscopy when medically stable Hypertensive urgency - We will cont on norvasc, lasix, imdur and Coreg, monitor BP , as needed IV hydralazine Acute renal failure - We'll monitor renal function carefully - Nephrology consulted in the ER, renal Ultrasound showed hydronephrosis and possible bladder mass Provide DVT prophylaxis with heparin and GI prophylaxis with Pepcid. Brief history: 67-year-old male with a past medical history of hypertension (diagnosed 25 years ago and he has never taken medications) presented to the hospital with complaints of generalized swelling and progressively worsening dyspnea on exertion for at least 3 weeks. Patient also c/o chronic orthopnea and can't remember the last time he was able lie flat. Patient denies chest pain, cough, or fever. In the ER his blood pressure was 180/107 on presentation. Initial labs notable for a creatinine of 3.3 and a hematocrit of 26.3. Patient will be admitted for further workup and management. Radiological test: Renal ultrasound: No. Masslike area in the posterior aspect of the urinary bladder may represent loculated depressed versus a bladder mass. Moderate bilateral hydronephrosis, bilateral pleural effusion. Chest x-ray: Consolidation and effusions at the lung bases which would really like bibasilar pneumonia or congestion Hospitalist Physical exam: GENERAL: elderly AAM lying on bed appeared to be in mild discomfort. HEENT: Normocephalic. Atraumatic. No conjunctival congestion or icterus. Patient has moist mucous membranes. NECK: Supple. Trachea midline. CHEST/LUNGS: Ccrackles auscultated bilaterally, breathing nonlabored. No wheezes or rhonchi. HEART/CARDIOVASCULAR: Regular in rate and rhythm. S1 and S2 positive. ABDOMEN: Abdomen is soft, nontender. Patient has normal bowel sounds. SKIN: There is no rash. Warm and dry. NEURO: No focal motor deficit. Follows command. MUSCULOSKELETAL: No joint effusion or tenderness. EXTRIMITY: 3+ edema, no cyanosis or clubbing. PSYCH: Cooperative. Subjective Date of service: 08/20/17 Principal diagnosis: karina, obstructive uropathy Interval history: Patient seen and examined. Medical records and medication list reviewed. No acute event overnight noted by the RN. Patient denies any chest pain, still has difficulty breathing on minimal exertion. Patient is tolerating diet. still has significant LE swelling, plan to place barfield by urology Discussed plan of care at bedside with patient and his Son. Objective - Constitutional Vitals: Vital Signs - 12hr 08/20/17 08/20/17 08/20/17 05:16 08:25 10:00 Temperature 98.9 F 97.9 F Pulse Rate 87 91 H 86 Pulse Rate [ 86 From Monitor] Respiratory 18 20 20 Rate Blood Pressure Blood Pressure 125/83 132/69 [Left] O2 Sat by Pulse 97 96 98 Oximetry 08/20/17 08/20/17 08/20/17 11:14 11:15 15:56 Temperature 98.2 F 97.9 F Pulse Rate 95 H 91 H Pulse Rate [ From Monitor] Respiratory 20 18 Rate Blood Pressure 113/56 Blood Pressure 106/62 [Left] O2 Sat by Pulse 97 98 Oximetry - Labs CBC & Chem 7: 08/18/17 02:06 08/21/17 05:50 Labs: Abnormal lab results 08/19/17 08/20/17 08/20/17 Range/Units 20:22 05:44 16:30 Chloride 108.0 H (98-107) mmol/L BUN 35 H (9-20) mg/dL Creatinine 3.4 H (0.8-1.5) mg/dL Calcium 7.8 L (8.4-10.2) mg/dL Total Protein 5.6 L (6.3-8.2) g/dL Albumin 2.4 L (3.9-5) g/dL Ur Total Protein 24 Hr 1440.00 H (2-200) Urine Total Protein 45 H (5-11.8) mg/dL
[2017-08-20 20:32] LABS: Albumin 2.6 g/dL (3.8-4.8); Gamma Globulin 1.3 g/dL (0.8-1.7)
--- NOTE | 2017-08-21 00:03 | Consultation ---
REASON FOR CONSULTATION: Bladder mass, hydronephrosis. HISTORY OF PRESENT ILLNESS: This patient is a gentleman with severe congestive heart failure, anasarca, severe swelling in his scrotum and penis and lower extremities. He had an ultrasound, which showed hydronephrosis, possible mass in the bladder versus a large prostate. He is short of breath. He can barely move with severe heart failure. Urological consultation was obtained for possible retention, hydronephrosis, renal insufficiency and renal failure. PAST MEDICAL HISTORY: As mentioned above. He says he had possibly enlarged prostate, took saw palmetto in the past, hypertension, and myeloma. PAST SURGICAL HISTORY: He has anemia as well. SOCIAL HISTORY: Negative. FAMILY HISTORY: Hypertension. REVIEW OF SYSTEMS: Shortness of breath, renal insufficiency. PHYSICAL EXAMINATION: GENERAL: He is awake. He is in moderate respiratory discomfort, can barely move. He is obese. ABDOMEN: Soft with anasarca. GENITALIA: He has severe uncircumcised edematous penis and scrotum, can barely feel the testis with pitting edema in the lower extremity. RECTAL: Digital Rectal Exam: Normal sphincter tone, 15 gram prostate, smooth, symmetrical. IMPRESSION: Possible urinary retention. He is diuresing with hydronephrosis. We placed a Santana catheter. Urine is clear. He will need cystoscopy and evaluation, when he is cleared medically, it can be done as an outpatient. We will leave Santana catheter, see what his creatinine does and he will need followup cystoscopy when he is clear. JOB# [id number] MARQUEZ/MILLY
[2017-08-21] MEDS: LASIX IV SCH (05:45)
[2017-08-21] MEDS: APRESOLINE PO SCH ×2 (05:45→14:33)
[2017-08-21] MEDS: ISORDIL TITRADOSE PO SCH ×2 (05:45→14:33)
[2017-08-21 07:09] LABS: Calcium 7.5 mg/dL (8.4-10.2)
--- NOTE | 2017-08-21 08:39 | Progress Note ---
Assessment and Plan Impression: * MEREDITH * obstructive uropathy * UTI * Cardiomyopathy--ef 15% * Trae Hydronephrosis * bladder mass * HTN Plan: * continue iv abx * cr is worse today * barfield finally in place * 24hr dumped, restart collection * urology to evaluate bladder mass, obstruction * daily lytes * avoid nephrotoxins * watch for post ob diuresis * hold diuresis Subjective Date of service: 08/21/17 Principal diagnosis: meredith, obstructive uropathy Interval history: resting well in bed today Objective - Exam Narrative Exam: GENERAL: elderly AAM lying on bed appeared to be in mild discomfort. HEENT: Normocephalic. Atraumatic. No conjunctival congestion or icterus. Patient has moist mucous membranes. NECK: Supple. Trachea midline. CHEST/LUNGS: Ccrackles auscultated bilaterally, breathing nonlabored. No wheezes or rhonchi. HEART/CARDIOVASCULAR: Regular in rate and rhythm. S1 and S2 positive. ABDOMEN: Abdomen is soft, nontender. Patient has normal bowel sounds. SKIN: There is no rash. Warm and dry. NEURO: No focal motor deficit. Follows command. - Vital Signs Vital signs: Vital Signs - 12hr 08/20/17 08/20/17 08/21/17 21:21 22:00 00:38 Temperature Pulse Rate 102 H 80 96 H Respiratory 20 20 Rate Blood Pressure 120/62 108/52 O2 Sat by Pulse 96 94 Oximetry 08/21/17 04:44 Temperature 98.4 F Pulse Rate 97 H Respiratory 20 Rate Blood Pressure 106/48 O2 Sat by Pulse 92 Oximetry - Lab 08/18/17 02:06 08/21/17 05:50 Most recent lab results Calcium 7.5 mg/dL (8.4-10.2) L 08/21/17 05:50 Magnesium 2.20 mg/dL (1.7-2.3) 08/18/17 06:06 Urine Creatinine 42.7 mg/dL (0.1-20.0) H 08/19/17 Unknown Ur Total Protein 24 Hr 1440.00 (2-200) H 08/20/17 16:30 Urine Sodium 80 mmol/L 08/19/17 Unknown Urine Total Protein 45 mg/dL (5-11.8) H 08/20/17 16:30
--- NOTE | 2017-08-21 09:26 | Progress Note ---
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 Discontinue amlodipine due to borderline BP Strict I&O's Fluid/Sodium restriction. Daily weight. Subjective Date of service: 08/21/17 Principal diagnosis: karina, obstructive uropathy Interval history: Patient is doing well He is diuresing better after barfield insertion Tele - showing sinus tachycardia Objective Vital Signs Temp Pulse Pulse Resp BP BP Pulse Ox 08/21/17 08:02 99.0 F 103 H 20 115/58 93 08/21/17 04:44 98.4 F 97 H 20 106/48 92 08/21/17 00:38 96 H 20 108/52 94 08/20/17 22:00 80 08/20/17 21:21 102 H 20 120/62 96 08/20/17 15:56 97.9 F 18 113/56 08/20/17 11:15 98.2 F 91 H 20 106/62 98 08/20/17 11:14 95 H 97 08/20/17 10:00 86 86 20 98 - Physical Examination General: No Apparent Distress HEENT: Positive: PERRL Neck: Positive: neck supple Cardiac: Positive: Tachycardia Lungs: Positive: Normal Exam Neuro: Positive: Grossly Intact Extremities: Present: +3 Edema - Labs and Meds Comprehensive Metabolic Panel 08/18/17 08/21/17 Range/Units 10:31 05:50 Sodium 138 (137-145) mmol/L Potassium 3.6 (3.6-5.0) mmol/L Chloride 105.1 (98-107) mmol/L Carbon Dioxide 24 (22-30) mmol/L BUN 30 H (9-20) mg/dL Creatinine 3.7 H (0.8-1.5) mg/dL Glucose 75 (75-100) mg/dL Calcium 7.5 L (8.4-10.2) mg/dL Albumin 2.6 L (3.8-4.8) g/dL
[2017-08-21] MEDS: PEPCID PO SCH ×2 (10:08→21:13)
[2017-08-21] MEDS: COLACE PO SCH ×2 (10:08→21:12)
[2017-08-21] MEDS: ASPIRIN PO SCH (10:08)
[2017-08-21] MEDS: cefTRIAXone 1 GM in NACL 0.9% 20 ML IV SCH (10:08)
[2017-08-21] MEDS: COREG PO SCH ×2 (10:09→21:13)
[2017-08-21] MEDS: HEPARIN SUB-Q SCH ×2 (10:09→21:13)
--- NOTE | 2017-08-21 12:24 | Progress Note ---
Assessment and Plan severe l hydro suspect no funtion LK if gets sick L perc and left nephrectomy pt poor f/u admits not followin g up nothing acute Subjective Date of service: 08/21/17 Principal diagnosis: karina, obstructive uropathy Objective - Constitutional Vitals: Vital Signs - 12hr 08/21/17 08/21/17 08/21/17 00:38 04:44 08:02 Temperature 98.4 F 99.0 F Pulse Rate 96 H 97 H 103 H Respiratory 20 20 20 Rate Blood Pressure 108/52 106/48 115/58 O2 Sat by Pulse 94 92 93 Oximetry 08/21/17 10:09 Temperature Pulse Rate 104 H Respiratory Rate Blood Pressure 115/58 O2 Sat by Pulse Oximetry General appearance: Present: no acute distress - Neck Neck: supple - Respiratory Respiratory effort: normal - Gastrointestinal General gastrointestinal: Present: soft, non-tender - Labs CBC & Chem 7: 08/18/17 02:06 08/21/17 05:50 Labs: Abnormal lab results 08/18/17 08/20/17 08/21/17 Range/Units 10:31 16:30 05:50 BUN 30 H (9-20) mg/dL Creatinine 3.7 H (0.8-1.5) mg/dL Calcium 7.5 L (8.4-10.2) mg/dL Serum Total Protein 5.8 L (6.1-8.1) g/dL Albumin 2.6 L (3.8-4.8) g/dL Llucp-1-Mfokwyosr 0.5 H (0.2-0.3) g/dL PEP Interpretation see below H Ur Total Protein 24 Hr 1440.00 H (2-200) Urine Total Protein 45 H (5-11.8) mg/dL
--- NOTE | 2017-08-21 14:09 | Consultation ---
NOTE: This dictation has been cancelled. JOB# [id number] MARQUEZ/MILLY
[2017-08-21] MEDS: MILRINONE-D5W 20 MG/100 ML 20 MG/100 ML BAG IV SCH (14:32)
--- NOTE | 2017-08-21 15:10 | Progress Note ---
Assessment and Plan Acute respiratory failure -Likely from underlying pleural effusion and acute CHF exacerbation - chest x-ray showed possible bilateral effusion - Provide supplemental oxygen to keep oxygen saturation above 92% -We will cont Lasix iv bid Acute CHF with systolic dysfuction - 2d echo showed EF 15-20% - cont lasix, BB - cardiology following - started on positive inotrop iv since 08/19 for total 5 days Volume overload with generalized anasarca - from acute CHF and renal failure - daily wt, monitor ins/os Bilateral pleural effusion - We'll cont Lasix - Repeat chest x-ray to monitor UTI, continue antibiotics, follow culture Bilateral hydronephrosis with possible bladder mass vs severe BPH - consulted urology, placed on barfield - need cystoscopy when medically stable Hypertensive urgency - We will cont on lasix, and Coreg, monitor BP , as needed IV hydralazine - hold norvasc, po hydralazine and imdur for now Acute renal failure - We'll monitor renal function carefully - Nephrology consulted in the ER, renal Ultrasound showed hydronephrosis and possible bladder mass - Cr 3.7 today Provide DVT prophylaxis with heparin and GI prophylaxis with Pepcid. Brief history: 67-year-old male with a past medical history of hypertension (diagnosed 25 years ago and he has never taken medications) presented to the hospital with complaints of generalized swelling and progressively worsening dyspnea on exertion for at least 3 weeks. Patient also c/o chronic orthopnea and can't remember the last time he was able lie flat. Patient denies chest pain, cough, or fever. In the ER his blood pressure was 180/107 on presentation. Initial labs notable for a creatinine of 3.3 and a hematocrit of 26.3. Patient will be admitted for further workup and management. Radiological test: Renal ultrasound: No. Masslike area in the posterior aspect of the urinary bladder may represent loculated depressed versus a bladder mass. Moderate bilateral hydronephrosis, bilateral pleural effusion. Chest x-ray: Consolidation and effusions at the lung bases which would really like bibasilar pneumonia or congestion Hospitalist Physical exam: GENERAL: elderly AAM lying on bed appeared to be in mild discomfort. HEENT: Normocephalic. Atraumatic. No conjunctival congestion or icterus. Patient has moist mucous membranes. NECK: Supple. Trachea midline. CHEST/LUNGS: Ccrackles auscultated bilaterally, breathing nonlabored. No wheezes or rhonchi. HEART/CARDIOVASCULAR: Regular in rate and rhythm. S1 and S2 positive. ABDOMEN: Abdomen is soft, nontender. Patient has normal bowel sounds. SKIN: There is no rash. Warm and dry. NEURO: No focal motor deficit. Follows command. MUSCULOSKELETAL: No joint effusion or tenderness. EXTRIMITY: 3+ edema, no cyanosis or clubbing. PSYCH: Cooperative. Subjective Date of service: 08/21/17 Principal diagnosis: karina, obstructive uropathy Interval history: Patient seen and examined. Medical records and medication list reviewed. No acute event overnight noted by the RN. Patient denies any chest pain, still has difficulty breathing on minimal exertion. Patient is tolerating diet. still has significant LE swelling, Discussed plan of care at bedside with patient and his Son. Objective - Constitutional Vitals: Vital Signs - 12hr 08/21/17 08/21/17 08/21/17 04:44 08:02 10:09 Temperature 98.4 F 99.0 F Pulse Rate 97 H 103 H 104 H Respiratory 20 20 Rate Blood Pressure 106/48 115/58 115/58 O2 Sat by Pulse 92 93 Oximetry 08/21/17 08/21/17 11:29 11:30 Temperature 97.9 F 97.9 F Pulse Rate 107 H 106 H Respiratory 18 18 Rate Blood Pressure 103/42 O2 Sat by Pulse 93 95 Oximetry - Labs CBC & Chem 7: 08/18/17 02:06 08/21/17 05:50 Labs: Abnormal lab results 08/18/17 08/20/17 08/21/17 Range/Units 10:31 16:30 05:50 BUN 30 H (9-20) mg/dL Creatinine 3.7 H (0.8-1.5) mg/dL Calcium 7.5 L (8.4-10.2) mg/dL Serum Total Protein 5.8 L (6.1-8.1) g/dL Albumin 2.6 L (3.8-4.8) g/dL Gefkk-[id number]-Btjouixyt 0.5 H (0.2-0.3) g/dL PEP Interpretation see below H Ur Total Protein 24 Hr 1440.00 H (2-200) Urine Total Protein 45 H (5-11.8) mg/dL
[2017-08-22] MEDS: ASPIRIN PO SCH (09:34)
[2017-08-22] MEDS: PEPCID PO SCH ×2 (09:34→21:42)
[2017-08-22] MEDS: COLACE PO SCH ×2 (09:34→21:42)
[2017-08-22] MEDS: cefTRIAXone 1 GM in NACL 0.9% 20 ML IV SCH (09:34)
[2017-08-22] MEDS: HEPARIN SUB-Q SCH ×2 (09:37→21:43)
[2017-08-22] MEDS: COREG PO SCH ×2 (09:49→21:42)
--- NOTE | 2017-08-22 10:40 | Progress Note ---
Assessment and Plan Impression: * MEREDITH * obstructive uropathy * UTI * Cardiomyopathy--ef 15% * Trae Hydronephrosis * bladder mass * HTN Plan: * continue iv abx * cr was increaseing, no labs drawn today--will reorder stat * barfield finally in place, excessive urine output * add iv fluids * urology evaluating bladder mass, obstruction * daily lytes * avoid nephrotoxins * watch for post ob diuresis * hold diuresis Subjective Date of service: 08/22/17 Principal diagnosis: meredith, obstructive uropathy Interval history: resting well in bed today Objective - Exam Narrative Exam: GENERAL: elderly AAM lying on bed appeared to be in mild discomfort. HEENT: Normocephalic. Atraumatic. No conjunctival congestion or icterus. Patient has moist mucous membranes. NECK: Supple. Trachea midline. CHEST/LUNGS: Ccrackles auscultated bilaterally, breathing nonlabored. No wheezes or rhonchi. HEART/CARDIOVASCULAR: Regular in rate and rhythm. S1 and S2 positive. ABDOMEN: Abdomen is soft, nontender. Patient has normal bowel sounds. SKIN: There is no rash. Warm and dry. NEURO: No focal motor deficit. Follows command. - Vital Signs Vital signs: Vital Signs - 12hr 08/22/17 08/22/17 08/22/17 00:46 04:21 08:14 Temperature 98.6 F 98.3 F 97.9 F Pulse Rate 98 H 97 H 100 H Respiratory 20 18 20 Rate Blood Pressure 107/57 103/57 132/65 O2 Sat by Pulse 92 93 93 Oximetry - Lab 08/18/17 02:06 08/21/17 05:50 Most recent lab results Calcium 7.5 mg/dL (8.4-10.2) L 08/21/17 05:50 Magnesium 2.20 mg/dL (1.7-2.3) 08/18/17 06:06 Urine Creatinine 42.7 mg/dL (0.1-20.0) H 08/19/17 Unknown Ur Total Protein 24 Hr 1440.00 (2-200) H 08/20/17 16:30 Urine Sodium 80 mmol/L 08/19/17 Unknown Urine Total Protein 45 mg/dL (5-11.8) H 08/20/17 16:30
--- NOTE | 2017-08-22 11:12 | Progress Note ---
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 Strict I&O's Fluid/Sodium restriction. Daily weight. Subjective Date of service: 08/22/17 Principal diagnosis: karina, obstructive uropathy Interval history: Edema is gradually improving Objective Vital Signs Temp Pulse Resp BP Pulse Ox 08/22/17 08:14 97.9 F 100 H 20 132/65 93 08/22/17 04:21 98.3 F 97 H 18 103/57 93 08/22/17 00:46 98.6 F 98 H 20 107/57 92 08/21/17 22:00 80 20 08/21/17 20:12 99.9 F H 107 H 20 129/62 95 08/21/17 15:26 97.9 F 105 H 20 102/53 95 08/21/17 11:30 97.9 F 106 H 18 95 08/21/17 11:29 97.9 F 107 H 18 103/42 93 - Physical Examination General: No Apparent Distress HEENT: Positive: PERRL Neck: Positive: neck supple Cardiac: Positive: Reg Rate and Rhythm Lungs: Positive: Normal Exam Neuro: Positive: Grossly Intact Extremities: Present: +3 Edema
[2017-08-22] MEDS: MILRINONE-D5W 20 MG/100 ML 20 MG/100 ML BAG IV SCH ×2 (11:38→21:43)
--- NOTE | 2017-08-22 14:27 | Progress Note ---
Assessment and Plan Acute respiratory failure -Likely from underlying pleural effusion and acute CHF exacerbation - chest x-ray showed possible bilateral effusion - Provide supplemental oxygen to keep oxygen saturation above 92% - treated with lasix iv Acute CHF with systolic dysfuction - 2d echo showed EF 15-20% - cont lasix, BB - cardiology following - started on positive inotrop iv since 08/19 for total 5 days Volume overload with generalized anasarca - from acute CHF and renal failure - daily wt, monitor ins/os Bilateral pleural effusion - given Lasix UTI, continue antibiotics, Bilateral hydronephrosis with possible bladder mass vs severe BPH - consulted urology, placed on barfield - need cystoscopy when medically stable Hypertensive urgency - Now on coreg and lasix Acute renal failure - We'll monitor renal function carefully - Nephrology consulted in the ER, renal Ultrasound showed hydronephrosis and possible bladder mass - Cr 3.4 today Provide DVT prophylaxis with heparin and GI prophylaxis with Pepcid. Brief history: 67-year-old male with a past medical history of hypertension (diagnosed 25 years ago and he has never taken medications) presented to the hospital with complaints of generalized swelling and progressively worsening dyspnea on exertion for at least 3 weeks. Patient also c/o chronic orthopnea and can't remember the last time he was able lie flat. Patient denies chest pain, cough, or fever. In the ER his blood pressure was 180/107 on presentation. Initial labs notable for a creatinine of 3.3 and a hematocrit of 26.3. Patient will be admitted for further workup and management. Radiological test: Renal ultrasound: No. Masslike area in the posterior aspect of the urinary bladder may represent loculated depressed versus a bladder mass. Moderate bilateral hydronephrosis, bilateral pleural effusion. Chest x-ray: Consolidation and effusions at the lung bases which would really like bibasilar pneumonia or congestion Hospitalist Physical exam: GENERAL: elderly AAM lying on bed appeared to be in mild discomfort. HEENT: Normocephalic. Atraumatic. No conjunctival congestion or icterus. Patient has moist mucous membranes. NECK: Supple. Trachea midline. CHEST/LUNGS: Ccrackles auscultated bilaterally, breathing nonlabored. No wheezes or rhonchi. HEART/CARDIOVASCULAR: Regular in rate and rhythm. S1 and S2 positive. ABDOMEN: Abdomen is soft, nontender. Patient has normal bowel sounds. SKIN: There is no rash. Warm and dry. NEURO: No focal motor deficit. Follows command. MUSCULOSKELETAL: No joint effusion or tenderness. EXTRIMITY: 3+ edema, no cyanosis or clubbing. PSYCH: Cooperative. Subjective Date of service: 08/22/17 Principal diagnosis: karina, obstructive uropathy Interval history: Patient seen and examined. Medical records and medication list reviewed. No acute event overnight noted by the RN. Patient denies any chest pain, difficulty breathing improved. Patient is tolerating diet. improving LE swelling, Discussed plan of care at bedside with patient Objective - Constitutional Vitals: Vital Signs - 12hr 08/22/17 08/22/17 04:21 08:14 Temperature 98.3 F 97.9 F Pulse Rate 97 H 100 H Respiratory 18 20 Rate Blood Pressure 103/57 132/65 O2 Sat by Pulse 93 93 Oximetry - Labs CBC & Chem 7: 08/22/17 13:48 08/22/17 13:48
[2017-08-22 14:41] LABS: Basophils % (Auto) 0.2 % (0.0-1.8); Eosinophils # (Auto) 0.4 K/mm3 (0.0-0.4); Eosinophils % (Auto) 5.5 % (0.0-4.3); Hematocrit 23.2 % (35.5-45.6); Hemoglobin 7.4 gm/dl (11.8-15.2); Lymphocytes # (Auto) 0.6 K/mm3 (1.2-5.4); Lymphocytes % (Auto) 8.6 % (13.4-35.0); Mean Corpuscular HGB Conc 32 % (32-34); Mean Corpuscular Hemoglobin 27 pg (28-32); Mean Corpuscular Volume 84 fl (84-94); Monocytes # (Auto) 0.6 K/mm3 (0.0-0.8); Monocytes % (Auto) 8.9 % (0.0-7.3); Platelet Count 321 K/mm3 (140-440); Red Blood Count 2.75 M/mm3 (3.65-5.03); Red Cell Distribution Width 15.8 % (13.2-15.2)
[2017-08-22] MEDS: APRESOLINE PO SCH ×2 (14:47→21:42)
[2017-08-22 14:54] LABS: Calcium 7.2 mg/dL (8.4-10.2)
[2017-08-23 05:40] LABS: Hematocrit 21.2 % (35.5-45.6); Hemoglobin 6.9 gm/dl (11.8-15.2)
[2017-08-23] MEDS: APRESOLINE PO SCH (05:55)
[2017-08-23] MEDS: MILRINONE-D5W 20 MG/100 ML 20 MG/100 ML BAG IV SCH ×3 (05:55→22:31)
[2017-08-23 05:57] LABS: Calcium 7.4 mg/dL (8.4-10.2)
[2017-08-23] MEDS ORDERED: NACL 0.9% 500 ML 500 ML IV NR (09:00)
--- NOTE | 2017-08-23 09:28 | Progress Note ---
Assessment and Plan Impression: * MEREDITH * obstructive uropathy * UTI * Cardiomyopathy--ef 15% * Trae Hydronephrosis * bladder mass * HTN Plan: * continue iv abx * cr better today * barfield in place, excessive urine output * add iv fluids prn * urology evaluating bladder mass, obstruction * daily lytes * avoid nephrotoxins * watch for post ob diuresis * hold diuresis Subjective Date of service: 08/23/17 Principal diagnosis: meredith, obstructive uropathy Interval history: resting well in bed today Objective - Exam Narrative Exam: GENERAL: elderly AAM lying on bed appeared to be in mild discomfort. HEENT: Normocephalic. Atraumatic. No conjunctival congestion or icterus. Patient has moist mucous membranes. NECK: Supple. Trachea midline. CHEST/LUNGS: Ccrackles auscultated bilaterally, breathing nonlabored. No wheezes or rhonchi. HEART/CARDIOVASCULAR: Regular in rate and rhythm. S1 and S2 positive. ABDOMEN: Abdomen is soft, nontender. Patient has normal bowel sounds. SKIN: There is no rash. Warm and dry. NEURO: No focal motor deficit. Follows command. - Vital Signs Vital signs: Vital Signs - 12hr 08/22/17 08/23/17 08/23/17 23:47 05:32 05:55 Temperature 99.1 F 98.5 F Pulse Rate 108 H 101 H 100 H Respiratory 20 20 Rate Blood Pressure 108/48 Blood Pressure 126/59 106/48 [Left] O2 Sat by Pulse 93 94 Oximetry 08/23/17 07:43 Temperature 98.4 F Pulse Rate 103 H Respiratory 18 Rate Blood Pressure 128/58 Blood Pressure [Left] O2 Sat by Pulse 95 Oximetry - Lab 08/23/17 04:56 08/23/17 04:56 Most recent lab results Calcium 7.4 mg/dL (8.4-10.2) L 08/23/17 04:56 Magnesium 2.20 mg/dL (1.7-2.3) 08/18/17 06:06 Urine Creatinine 42.7 mg/dL (0.1-20.0) H 08/19/17 Unknown Ur Total Protein 24 Hr 1440.00 (2-200) H 08/20/17 16:30 Urine Sodium 80 mmol/L 08/19/17 Unknown Urine Total Protein 45 mg/dL (5-11.8) H 08/20/17 16:30
[2017-08-23] MEDS: PEPCID PO SCH ×2 (10:20→21:28)
[2017-08-23] MEDS: COLACE PO SCH ×2 (10:20→21:27)
[2017-08-23] MEDS: ASPIRIN PO SCH (10:20)
[2017-08-23] MEDS: HEPARIN SUB-Q SCH ×2 (10:21→21:28)
[2017-08-23] MEDS: COREG PO SCH ×2 (10:21→21:27)
[2017-08-23] MEDS: cefTRIAXone 1 GM in NACL 0.9% 20 ML IV SCH (10:31)
[2017-08-23 10:59] LABS: Iron 19 ug/dL (49-181); Total Iron Binding Capacity 196 mcg/dL (250-450)
--- NOTE | 2017-08-23 11:06 | Progress Note ---
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 Strict I&O's Fluid/Sodium restriction. Daily weight. Subjective Date of service: 08/23/17 Principal diagnosis: karina, obstructive uropathy Interval history: IV milrinone continues. Edema is improving. Objective Vital Signs Temp Pulse Resp BP BP Pulse Ox 08/23/17 10:21 103 H 128/58 08/23/17 07:43 98.4 F 103 H 18 128/58 95 08/23/17 05:55 100 H 108/48 08/23/17 05:32 98.5 F 101 H 20 106/48 94 08/22/17 23:47 99.1 F 108 H 20 126/59 93 08/22/17 20:34 99.5 F 105 H 129/68 95 08/22/17 15:39 98.7 F 102 H 20 121/54 96 - Physical Examination General: No Apparent Distress HEENT: Positive: PERRL Neck: Positive: trachea midline Cardiac: Positive: Tachycardia Lungs: Positive: Decreased Breath Sounds Neuro: Positive: Grossly Intact Extremities: Present: +2 Edema - Labs and Meds CBC 08/22/17 08/23/17 Range/Units 13:48 04:56 WBC 6.8 (4.5-11.0) K/mm3 RBC 2.75 L (3.65-5.03) M/mm3 Hgb 7.4 L 6.9 L (11.8-15.2) gm/dl Hct 23.2 L 21.2 L (35.5-45.6) % Plt Count 321 (140-440) K/mm3 Lymph # 0.6 L (1.2-5.4) K/mm3 Esmeralda # 0.6 (0.0-0.8) K/mm3 Eos # 0.4 (0.0-0.4) K/mm3 Baso # 0.0 (0.0-0.1) K/mm3 Comprehensive Metabolic Panel 08/22/17 08/23/17 Range/Units 13:48 04:56 Sodium 140 140 (137-145) mmol/L Potassium 3.5 L 3.8 (3.6-5.0) mmol/L Chloride 101.2 104.0 (98-107) mmol/L Carbon Dioxide 27 24 (22-30) mmol/L BUN 29 H 26 H (9-20) mg/dL Creatinine 3.4 H 3.2 H (0.8-1.5) mg/dL Glucose 123 H 75 (75-100) mg/dL Calcium 7.2 L 7.4 L (8.4-10.2) mg/dL
[2017-08-23] MEDS: BIDIL 20/37.5MG PO SCH ×2 (14:27→21:27)
--- NOTE | 2017-08-23 15:27 | Progress Note ---
Assessment and Plan Acute respiratory failure -Likely from underlying pleural effusion and acute CHF exacerbation - chest x-ray showed possible bilateral effusion - Provided supplemental oxygen to keep oxygen saturation above 92% - treated with lasix iv Acute CHF with systolic dysfuction - 2d echo showed EF 15-20% - cont lasix, BB - cardiology following - started on positive inotrop iv since 08/19 for total 5 days Volume overload with generalized anasarca - from acute CHF and renal failure - daily wt, monitor ins/os Bilateral pleural effusion - given Lasix UTI, continue antibiotics, Bilateral hydronephrosis with possible bladder mass vs severe BPH - consulted urology, placed on barfield - need cystoscopy when medically stable Hypertensive urgency - Now on coreg and lasix Acute renal failure - We'll monitor renal function carefully - Nephrology consulted in the ER, renal Ultrasound showed hydronephrosis and possible bladder mass - Cr 3.2 today Anemia, - could be from vit deficiency vs chronic disease - ordered one unit PRBC transfusion but he refused Provide DVT prophylaxis with scd and GI prophylaxis with Pepcid. Brief history: 67-year-old male with a past medical history of hypertension (diagnosed 25 years ago and he has never taken medications) presented to the hospital with complaints of generalized swelling and progressively worsening dyspnea on exertion for at least 3 weeks. Patient also c/o chronic orthopnea and can't remember the last time he was able lie flat. Patient denies chest pain, cough, or fever. In the ER his blood pressure was 180/107 on presentation. Initial labs notable for a creatinine of 3.3 and a hematocrit of 26.3. Patient will be admitted for further workup and management. Radiological test: Renal ultrasound: No. Masslike area in the posterior aspect of the urinary bladder may represent loculated depressed versus a bladder mass. Moderate bilateral hydronephrosis, bilateral pleural effusion. Chest x-ray: Consolidation and effusions at the lung bases which would really like bibasilar pneumonia or congestion Hospitalist Physical exam: GENERAL: elderly AAM lying on bed appeared to be in mild discomfort. HEENT: Normocephalic. Atraumatic. No conjunctival congestion or icterus. Patient has moist mucous membranes. NECK: Supple. Trachea midline. CHEST/LUNGS: Ccrackles auscultated bilaterally, breathing nonlabored. No wheezes or rhonchi. HEART/CARDIOVASCULAR: Regular in rate and rhythm. S1 and S2 positive. ABDOMEN: Abdomen is soft, nontender. Patient has normal bowel sounds. SKIN: There is no rash. Warm and dry. NEURO: No focal motor deficit. Follows command. MUSCULOSKELETAL: No joint effusion or tenderness. EXTRIMITY: 3+ edema, no cyanosis or clubbing. PSYCH: Cooperative. Subjective Date of service: 08/23/17 Principal diagnosis: karina, obstructive uropathy Interval history: Patient seen and examined. Medical records and medication list reviewed. No acute event overnight noted by the RN. Patient denies any chest pain, difficulty breathing improved. Patient is tolerating diet. improving LE swelling, Refused PRBC transfusion today Discussed plan of care at bedside with patient Objective - Constitutional Vitals: Vital Signs - 12hr 08/23/17 08/23/17 08/23/17 05:32 05:55 07:02 Temperature 98.5 F Pulse Rate 101 H 100 H 102 H Respiratory 20 Rate Blood Pressure 108/48 Blood Pressure 106/48 [Left] O2 Sat by Pulse 94 Oximetry 08/23/17 08/23/17 08/23/17 07:43 10:21 11:36 Temperature 98.4 F 98.4 F Pulse Rate 103 H 103 H 102 H Respiratory 18 18 Rate Blood Pressure 128/58 128/58 113/50 Blood Pressure [Left] O2 Sat by Pulse 95 96 Oximetry 08/23/17 14:27 Temperature Pulse Rate 102 H Respiratory Rate Blood Pressure 113/50 Blood Pressure [Left] O2 Sat by Pulse Oximetry - Labs CBC & Chem 7: 08/23/17 04:56 08/23/17 04:56 Labs: Abnormal lab results 08/23/17 08/23/17 08/23/17 Range/Units 04:56 04:56 09:35 Hgb 6.9 L (11.8-15.2) gm/dl Hct 21.2 L (35.5-45.6) % BUN 26 H (9-20) mg/dL Creatinine 3.2 H (0.8-1.5) mg/dL POC Glucose (70-105) Calcium 7.4 L (8.4-10.2) mg/dL Iron 19 L (49-181) ug/dL TIBC 196 L (250-450) mcg/dL Crossmatch 08/23/17 08/23/17 Range/Units 09:35 12:44 Hgb (11.8-15.2) gm/dl Hct (35.5-45.6) % BUN (9-20) mg/dL Creatinine (0.8-1.5) mg/dL POC Glucose 113 H (70-105) Calcium (8.4-10.2) mg/dL Iron (49-181) ug/dL TIBC (250-450) mcg/dL Crossmatch See Detail
[2017-08-23] MEDS ORDERED: NACL 0.9% 250ML 250 ML ONE (16:19)
[2017-08-23] MEDS ORDERED: NACL 0.9% 250ML 250 ML IV ONE (17:00)
[2017-08-24] MEDS: BIDIL 20/37.5MG PO SCH ×3 (05:37→22:15)
[2017-08-24 06:16] LABS: Hemoglobin 7.8 gm/dl (11.8-15.2)
[2017-08-24 06:43] LABS: Calcium 7.4 mg/dL (8.4-10.2)
[2017-08-24] MEDS: MILRINONE-D5W 20 MG/100 ML 20 MG/100 ML BAG IV SCH (08:32)
--- NOTE | 2017-08-24 09:49 | Progress Note ---
Assessment and Plan Acute systolic heart failure 4 chamber dilated cardiomyopathy, ejection fraction 15-20% Bilateral moderate hydronephrosis Acute on chronic renal failure Anemia s/p transfusion of PRBCs Bilateral pleural effusions Hypertension Recommendations: Continue optimal medical management for systolic heart failure. Strict I&O's Fluid/Sodium restriction. Daily weight. Subjective Date of service: 08/24/17 Principal diagnosis: karina, obstructive uropathy Interval history: Patient is resting in bed comfortably. No cardiac events reported overnight. IV milrinone continues. Objective Vital Signs Temp Pulse Pulse Pulse Resp BP BP 08/24/17 08:14 98.5 F 105 H 20 123/70 08/24/17 07:31 85 08/24/17 05:37 103 H 124/65 08/24/17 04:40 98.2 F 104 H 18 124/65 08/24/17 04:39 98.2 F 103 H 18 124/65 08/24/17 00:30 98.1 F 104 H 20 105/53 08/23/17 22:00 105 H 107 H 20 08/23/17 21:27 97 H 125/65 08/23/17 21:23 98.9 F 97 H 20 125/65 08/23/17 19:46 104 H 08/23/17 19:26 99.1 F 105 H 20 121/57 08/23/17 18:56 98.3 F 103 H 20 109/57 08/23/17 18:26 98.8 F 107 H 18 115/47 08/23/17 18:17 98.8 F 103 H 18 113/52 08/23/17 18:11 98.2 F 103 H 18 112/51 08/23/17 18:01 98.2 F 102 H 18 111/49 08/23/17 15:15 101 H 97/46 08/23/17 15:14 98.4 F 101 H 18 89/53 08/23/17 14:27 102 H 113/50 08/23/17 11:36 98.4 F 102 H 18 113/50 08/23/17 10:21 103 H 128/58 Pulse Ox 08/24/17 08:14 94 08/24/17 07:31 94 08/24/17 05:37 08/24/17 04:40 93 08/24/17 04:39 95 08/24/17 00:30 96 08/23/17 22:00 08/23/17 21:27 08/23/17 21:23 98 08/23/17 19:46 08/23/17 19:26 98 08/23/17 18:56 95 08/23/17 18:26 98 08/23/17 18:17 96 08/23/17 18:11 100 08/23/17 18:01 96 08/23/17 15:15 95 08/23/17 15:14 96 08/23/17 14:27 08/23/17 11:36 96 08/23/17 10:21 - Physical Examination General: No Apparent Distress Cardiac: Positive: Tachycardia Extremities: Present: +2 Edema - Labs and Meds CBC 08/24/17 Range/Units 05:21 Hgb 7.8 L (11.8-15.2) gm/dl Hct 23.0 L (35.5-45.6) % Comprehensive Metabolic Panel 08/24/17 Range/Units 05:21 Sodium 139 (137-145) mmol/L Potassium 3.5 L (3.6-5.0) mmol/L Chloride 103.2 (98-107) mmol/L Carbon Dioxide 25 (22-30) mmol/L BUN 24 H (9-20) mg/dL Creatinine 2.9 H (0.8-1.5) mg/dL Glucose 77 (75-100) mg/dL Calcium 7.4 L (8.4-10.2) mg/dL
[2017-08-24] MEDS: PEPCID PO SCH ×2 (09:50→22:15)
[2017-08-24] MEDS: COLACE PO SCH ×2 (09:50→22:15)
[2017-08-24] MEDS: ASPIRIN PO SCH (09:50)
[2017-08-24] MEDS: COREG PO SCH ×2 (09:55→22:17)
[2017-08-24] MEDS: HEPARIN SUB-Q SCH ×2 (09:56→22:17)
--- NOTE | 2017-08-24 10:15 | Progress Note ---
Assessment and Plan Impression: * MEREDITH * obstructive uropathy * UTI * Cardiomyopathy--ef 15% * Trae Hydronephrosis * bladder mass * HTN Plan: * continue iv abx * cr better today * barfield in place, excessive urine output * urology evaluating bladder mass, obstruction * daily lytes * avoid nephrotoxins * watch for post ob diuresis * hold diuresis * pt to eval and treat * stable from renal standpoint Subjective Date of service: 08/24/17 Principal diagnosis: meredith, obstructive uropathy Interval history: resting well in bed today Objective - Exam Narrative Exam: GENERAL: elderly AAM lying on bed appeared to be in mild discomfort. HEENT: Normocephalic. Atraumatic. No conjunctival congestion or icterus. Patient has moist mucous membranes. NECK: Supple. Trachea midline. CHEST/LUNGS: Ccrackles auscultated bilaterally, breathing nonlabored. No wheezes or rhonchi. HEART/CARDIOVASCULAR: Regular in rate and rhythm. S1 and S2 positive. ABDOMEN: Abdomen is soft, nontender. Patient has normal bowel sounds. SKIN: There is no rash. Warm and dry. NEURO: No focal motor deficit. Follows command. - Vital Signs Vital signs: Vital Signs - 12hr 08/24/17 08/24/17 08/24/17 00:30 04:39 04:40 Temperature 98.1 F 98.2 F 98.2 F Pulse Rate 104 H 103 H 104 H Respiratory 20 18 18 Rate Blood Pressure 124/65 Blood Pressure 105/53 124/65 [Left] O2 Sat by Pulse 96 95 93 Oximetry 08/24/17 08/24/17 08/24/17 05:37 07:31 08:14 Temperature 98.5 F Pulse Rate 103 H 85 105 H Respiratory 20 Rate Blood Pressure 124/65 123/70 Blood Pressure [Left] O2 Sat by Pulse 94 94 Oximetry 08/24/17 09:55 Temperature Pulse Rate 101 H Respiratory Rate Blood Pressure Blood Pressure [Left] O2 Sat by Pulse Oximetry - Lab 08/24/17 05:21 08/24/17 05:21 Most recent lab results Calcium 7.4 mg/dL (8.4-10.2) L 08/24/17 05:21 Magnesium 2.20 mg/dL (1.7-2.3) 08/18/17 06:06 Urine Creatinine 42.7 mg/dL (0.1-20.0) H 08/19/17 Unknown Ur Total Protein 24 Hr 1440.00 (2-200) H 08/20/17 16:30 Urine Sodium 80 mmol/L 08/19/17 Unknown Urine Total Protein 45 mg/dL (5-11.8) H 08/20/17 16:30
--- NOTE | 2017-08-24 11:12 | Progress Note ---
Assessment and Plan Acute respiratory failure, resolved -Likely from underlying pleural effusion and acute CHF exacerbation - chest x-ray showed possible bilateral effusion - Provided supplemental oxygen to keep oxygen saturation above 92% - treated with lasix iv Acute CHF with systolic dysfuction - 2d echo showed EF 15-20% - cont lasix, BB - cardiology following - started on positive inotrop iv since 08/19 for total 5 days - plan for stress test Volume overload with generalized anasarca - from acute CHF and renal failure - daily wt, monitor ins/os Bilateral pleural effusion - given Lasix UTI, treated with antibiotics, Bilateral hydronephrosis with possible bladder mass vs severe BPH - consulted urology, placed on barfield - need cystoscopy when medically stable, f/u with urology before d/c planning Hypertensive urgency - Now on coreg and imdur Acute renal failure, likely postobstructive nephropathy with CKD - We'll monitor renal function carefully - Nephrology consulted in the ER, renal Ultrasound showed hydronephrosis and possible bladder mass - Cr 2.9 today Anemia, - could be from vit deficiency vs chronic disease - s/p one unit PRBC transfusion Provide DVT prophylaxis with scd and GI prophylaxis with Pepcid. Brief history: 67-year-old male with a past medical history of hypertension (diagnosed 25 years ago and he has never taken medications) presented to the hospital with complaints of generalized swelling and progressively worsening dyspnea on exertion for at least 3 weeks. Patient also c/o chronic orthopnea and can't remember the last time he was able lie flat. Patient denies chest pain, cough, or fever. In the ER his blood pressure was 180/107 on presentation. Initial labs notable for a creatinine of 3.3 and a hematocrit of 26.3. Patient will be admitted for further workup and management. Radiological test: Renal ultrasound: No. Masslike area in the posterior aspect of the urinary bladder may represent loculated depressed versus a bladder mass. Moderate bilateral hydronephrosis, bilateral pleural effusion. Chest x-ray: Consolidation and effusions at the lung bases which would really like bibasilar pneumonia or congestion Hospitalist Physical exam: GENERAL: elderly AAM lying on bed appeared to be in mild discomfort. HEENT: Normocephalic. Atraumatic. No conjunctival congestion or icterus. Patient has moist mucous membranes. NECK: Supple. Trachea midline. CHEST/LUNGS: Ccrackles auscultated bilaterally, breathing nonlabored. No wheezes or rhonchi. HEART/CARDIOVASCULAR: Regular in rate and rhythm. S1 and S2 positive. ABDOMEN: Abdomen is soft, nontender. Patient has normal bowel sounds. SKIN: There is no rash. Warm and dry. NEURO: No focal motor deficit. Follows command. MUSCULOSKELETAL: No joint effusion or tenderness. EXTRIMITY: 2+ edema, no cyanosis or clubbing. PSYCH: Cooperative. Subjective Date of service: 08/24/17 Principal diagnosis: karina, obstructive uropathy Interval history: Patient seen and examined. Medical records and medication list reviewed. No acute event overnight noted by the RN. Patient denies any chest pain, difficulty breathing improved. Patient is tolerating diet. improving LE swelling, s/p PRBC transfusion yesterday Discussed plan of care at bedside with patient Objective - Constitutional Vitals: Vital Signs - 12hr 08/24/17 08/24/17 08/24/17 00:30 04:39 04:40 Temperature 98.1 F 98.2 F 98.2 F Pulse Rate 104 H 103 H 104 H Respiratory 20 18 18 Rate Blood Pressure 124/65 Blood Pressure 105/53 124/65 [Left] O2 Sat by Pulse 96 95 93 Oximetry 08/24/17 08/24/17 08/24/17 05:37 07:31 08:14 Temperature 98.5 F Pulse Rate 103 H 85 105 H Respiratory 20 Rate Blood Pressure 124/65 123/70 Blood Pressure [Left] O2 Sat by Pulse 94 94 Oximetry 08/24/17 09:55 Temperature Pulse Rate 101 H Respiratory Rate Blood Pressure Blood Pressure [Left] O2 Sat by Pulse Oximetry - Labs CBC & Chem 7: 08/24/17 05:21 08/24/17 05:21 Labs: Abnormal lab results 08/23/17 08/23/17 08/23/17 Range/Units 09:35 12:44 16:36 Hgb (11.8-15.2) gm/dl Hct (35.5-45.6) % Potassium (3.6-5.0) mmol/L BUN (9-20) mg/dL Creatinine (0.8-1.5) mg/dL POC Glucose 113 H 145 H (70-105) Calcium (8.4-10.2) mg/dL Crossmatch See Detail 08/24/17 08/24/17 Range/Units 05:21 05:21 Hgb 7.8 L (11.8-15.2) gm/dl Hct 23.0 L (35.5-45.6) % Potassium 3.5 L (3.6-5.0) mmol/L BUN 24 H (9-20) mg/dL Creatinine 2.9 H (0.8-1.5) mg/dL POC Glucose (70-105) Calcium 7.4 L (8.4-10.2) mg/dL Crossmatch
[2017-08-24] MEDS: cefTRIAXone 1 GM in NACL 0.9% 20 ML IV SCH (13:51)
[2017-08-25] MEDS: BIDIL 20/37.5MG PO SCH ×3 (06:33→22:04)
[2017-08-25 06:34] LABS: Calcium 7.3 mg/dL (8.4-10.2)
[2017-08-25] MEDS ORDERED: LEXISCAN IV ONE ×2 (09:32→10:20)
--- NOTE | 2017-08-25 10:24 | Progress Note ---
Assessment and Plan Impression: * MEREDITH * obstructive uropathy * UTI * Cardiomyopathy--ef 15% * Trae Hydronephrosis * bladder mass * HTN Plan: * continue iv abx * cr better today * barfield in place, excessive urine output * urology evaluating bladder mass, obstruction * daily lytes * avoid nephrotoxins * watch for post ob diuresis * hold diuresis * pt to eval and treat * stable from renal standpoint Subjective Date of service: 08/25/17 Principal diagnosis: meredith, obstructive uropathy Interval history: resting well in bed today Objective - Exam Narrative Exam: GENERAL: elderly AAM lying on bed appeared to be in mild discomfort. HEENT: Normocephalic. Atraumatic. No conjunctival congestion or icterus. Patient has moist mucous membranes. NECK: Supple. Trachea midline. CHEST/LUNGS: Ccrackles auscultated bilaterally, breathing nonlabored. No wheezes or rhonchi. HEART/CARDIOVASCULAR: Regular in rate and rhythm. S1 and S2 positive. ABDOMEN: Abdomen is soft, nontender. Patient has normal bowel sounds. SKIN: There is no rash. Warm and dry. NEURO: No focal motor deficit. Follows command. - Vital Signs Vital signs: Vital Signs - 12hr 08/25/17 08/25/17 08/25/17 00:05 00:46 05:01 Temperature 98.9 F 97.6 F Pulse Rate 102 H 84 Respiratory 20 18 Rate Blood Pressure 123/64 Blood Pressure 123/64 141/87 [Left] O2 Sat by Pulse 98 100 Oximetry 08/25/17 08/25/17 06:33 08:48 Temperature 98.2 F Pulse Rate 99 H 94 H Respiratory 20 Rate Blood Pressure 141/87 134/80 Blood Pressure [Left] O2 Sat by Pulse 98 Oximetry - Lab 08/24/17 05:21 08/25/17 05:05 Most recent lab results Calcium 7.3 mg/dL (8.4-10.2) L 08/25/17 05:05 Magnesium 2.20 mg/dL (1.7-2.3) 08/18/17 06:06 Urine Creatinine 42.7 mg/dL (0.1-20.0) H 08/19/17 Unknown Ur Total Protein 24 Hr 1440.00 (2-200) H 08/20/17 16:30 Urine Sodium 80 mmol/L 08/19/17 Unknown Urine Total Protein 45 mg/dL (5-11.8) H 08/20/17 16:30
[2017-08-25] MEDS: ASPIRIN PO SCH (11:48)
[2017-08-25] MEDS: cefTRIAXone 1 GM in NACL 0.9% 20 ML IV SCH (11:48)
[2017-08-25] MEDS: COREG PO SCH ×2 (11:49→22:05)
[2017-08-25] MEDS: PEPCID PO SCH ×2 (11:49→22:04)
[2017-08-25] MEDS: COLACE PO SCH ×2 (11:55→22:05)
[2017-08-25] MEDS: HEPARIN SUB-Q SCH ×2 (11:57→22:04)
--- NOTE | 2017-08-25 12:39 | Progress Note ---
Assessment and Plan Acute systolic heart failure 4 chamber dilated cardiomyopathy, ejection fraction 15-20% MPI showing moderate size predominantly fixed inferior wall defect with mild reversibility suggesting possible prior RCA infarction with mild periinfarct ischemia Bilateral moderate hydronephrosis and obstructive uropathy Acute on chronic renal failure Anemia Bilateral pleural effusions Hypertension Recommendations: Continue current medical therapy Further evaluation with coronary angiography in recommended based on MPI findings. Timing will depend on renal function recovery as well as degree of anemia. Strict I&O's Fluid/Sodium restriction. Daily weight. Subjective Date of service: 08/25/17 Principal diagnosis: karina, obstructive uropathy Interval history: Patient is doing well No events on tele Objective Vital Signs Temp Pulse Resp BP BP Pulse Ox 08/25/17 12:32 80 08/25/17 11:49 80 08/25/17 10:16 98 H 158/82 08/25/17 10:15 98 H 157/83 08/25/17 10:14 98 H 156/81 08/25/17 10:13 100 H 158/82 08/25/17 10:12 100 H 156/81 08/25/17 10:10 98 H 161/88 08/25/17 09:59 94 H 158/87 08/25/17 08:48 98.2 F 94 H 20 134/80 98 08/25/17 06:33 99 H 141/87 08/25/17 05:01 97.6 F 84 18 141/87 100 08/25/17 00:46 98.9 F 102 H 20 123/64 98 08/25/17 00:05 123/64 08/24/17 22:17 99 H 135/70 08/24/17 22:15 99 H 135/70 08/24/17 20:17 99.3 F 105 H 18 135/70 96 08/24/17 19:53 105 H 135/70 94 08/24/17 16:22 98.3 F 98 H 20 123/73 97 - Physical Examination General: No Apparent Distress HEENT: Positive: PERRL Neck: Positive: trachea midline Cardiac: Positive: Reg Rate and Rhythm Lungs: Positive: Normal Exam Neuro: Positive: Grossly Intact Extremities: Present: +2 Edema - Labs and Meds Comprehensive Metabolic Panel 08/25/17 Range/Units 05:05 Sodium 139 (137-145) mmol/L Potassium 3.6 (3.6-5.0) mmol/L Chloride 100.5 (98-107) mmol/L Carbon Dioxide 27 (22-30) mmol/L BUN 21 H (9-20) mg/dL Creatinine 2.7 H (0.8-1.5) mg/dL Glucose 73 L (75-100) mg/dL Calcium 7.3 L (8.4-10.2) mg/dL
--- NOTE | 2017-08-25 13:08 | Progress Note ---
Assessment and Plan rec f/u with evans re bladder and left kidney he had not followed up with me Subjective Date of service: 08/25/17 Principal diagnosis: karina, obstructive uropathy Objective - Constitutional Vitals: Vital Signs - 12hr 08/25/17 08/25/17 08/25/17 05:01 06:33 08:48 Temperature 97.6 F 98.2 F Pulse Rate 84 99 H 94 H Respiratory 18 20 Rate Blood Pressure 141/87 134/80 Blood Pressure 141/87 [Left] O2 Sat by Pulse 100 98 Oximetry 08/25/17 08/25/17 08/25/17 09:59 10:10 10:12 Temperature Pulse Rate 94 H 98 H 100 H Respiratory Rate Blood Pressure 158/87 161/88 156/81 Blood Pressure [Left] O2 Sat by Pulse Oximetry 08/25/17 08/25/17 08/25/17 10:13 10:14 10:15 Temperature Pulse Rate 100 H 98 H 98 H Respiratory Rate Blood Pressure 158/82 156/81 157/83 Blood Pressure [Left] O2 Sat by Pulse Oximetry 08/25/17 08/25/17 08/25/17 10:16 11:49 12:32 Temperature Pulse Rate 98 H 80 80 Respiratory Rate Blood Pressure 158/82 Blood Pressure [Left] O2 Sat by Pulse Oximetry - Labs CBC & Chem 7: 08/24/17 05:21 08/25/17 05:05 Labs: Abnormal lab results 08/25/17 Range/Units 05:05 BUN 21 H (9-20) mg/dL Creatinine 2.7 H (0.8-1.5) mg/dL Glucose 73 L (75-100) mg/dL Calcium 7.3 L (8.4-10.2) mg/dL
--- NOTE | 2017-08-25 16:24 | Progress Note ---
Assessment and Plan Assessment and plan: 67-year-old male with a past medical history of hypertension (diagnosed 25 years ago and he has never took medications) presented to the hospital with complaints of generalized swelling and progressively worsening dyspnea on exertion for at least 3 weeks. Patient also c/o chronic orthopnea and can't remember the last time he was able lie flat. Patient denies chest pain, cough, or fever. In the ER his blood pressure was 180/107 on presentation. Initial labs notable for a creatinine of 3.3 and a hematocrit of 26.3. Patient will be admitted for further workup and management. Acute respiratory failure, resolved -Likely from underlying pleural effusion and acute CHF exacerbation - Provided supplemental oxygen to keep oxygen saturation above 92% - treated with lasix iv milrinone Acute CHF with systolic dysfuction - 2d echo showed EF 15-20% - cont lasix, BB - cardiology following - treated with milrinone - stress test was done and showed fixed defect in the inferior wall and plan to do cath tomorrow Volume overload with generalized anasarca - from acute CHF and renal failure - daily wt, monitor ins/os Bilateral pleural effusion - given Lasix UTI, treated with antibiotics, Bilateral hydronephrosis with possible bladder mass vs severe BPH - Urology consulted and recommended F/u with [facility] and Hypertensive urgency - Now on coreg and imdur Acute renal failure, 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 History Interval history: Patient was seen and evaluated this morning, patient's shortness of breath subsided. Bilateral leg swelling is getting better. Hospitalist Physical - Physical exam Narrative exam: Not in cardiopulmonary distress. The patient appeared well nourished and normally developed. Vital signs as documented. Head exam is unremarkable. No scleral icterus . Neck is without jugular venous distension, thyromegaly, or carotid bruits. Lungs are clear to auscultation. Cardiac exam reveals regular rate and Rhythm. First and second heart sounds normal. No murmurs, rubs or gallops. Abdominal exam reveals normal bowel sounds, no masses, no organomegaly and no aortic enlargement. Extremities +1 pedal and pretibial edema. INDUSTRIAL ORDER CLERK: Alert and oriented 3. No focal weakness. - Constitutional Vitals: Temp Pulse Resp BP Pulse Ox 97.9 F 80 20 154/87 100 08/25/17 12:13 08/25/17 12:32 08/25/17 12:13 08/25/17 12:13 08/25/17 12:13 General appearance: Present: no acute distress Results - Labs CBC & Chem 7: 08/24/17 05:21 08/25/17 05:05 Labs: Laboratory Last Values WBC 6.8 K/mm3 (4.5-11.0) 08/22/17 13:48 RBC 2.75 M/mm3 (3.65-5.03) L 08/22/17 13:48 Hgb 7.8 gm/dl (11.8-15.2) L 08/24/17 05:21 Hct 23.0 % (35.5-45.6) L 08/24/17 05:21 MCV 84 fl (84-94) 08/22/17 13:48 MCH 27 pg (28-32) L 08/22/17 13:48 MCHC 32 % (32-34) 08/22/17 13:48 RDW 15.8 % (13.2-15.2) H 08/22/17 13:48 Plt Count 321 K/mm3 (140-440) 08/22/17 13:48 Lymph % (Auto) 8.6 % (13.4-35.0) L 08/22/17 13:48 [place] % (Auto) 8.9 % (0.0-7.3) H 08/22/17 13:48 Eos % (Auto) 5.5 % (0.0-4.3) H 08/22/17 13:48 Baso % (Auto) 0.2 % (0.0-1.8) 08/22/17 13:48 Lymph # 0.6 K/mm3 (1.2-5.4) L 08/22/17 13:48 [place] # 0.6 K/mm3 (0.0-0.8) 08/22/17 13:48 Eos # 0.4 K/mm3 (0.0-0.4) 08/22/17 13:48 Baso # 0.0 K/mm3 (0.0-0.1) 08/22/17 13:48 Seg Neutrophils % 76.8 % (40.0-70.0) H 08/22/17 13:48 Seg Neutrophils # 5.2 K/mm3 (1.8-7.7) 08/22/17 13:48 PT 14.3 Sec. (12.2-14.9) 08/18/17 06:06 INR 1.05 (0.87-1.13) 08/18/17 06:06 APTT 39.4 Sec. (24.2-36.6) H 08/18/17 06:06 Sodium 139 mmol/L (137-145) 08/25/17 05:05 Potassium 3.6 mmol/L (3.6-5.0) 08/25/17 05:05 Chloride 100.5 mmol/L (98-107) 08/25/17 05:05 Carbon Dioxide 27 mmol/L (22-30) 08/25/17 05:05 Anion Gap 15 mmol/L 08/25/17 05:05 BUN 21 mg/dL (9-20) H 08/25/17 05:05 Creatinine 2.7 mg/dL (0.8-1.5) H 08/25/17 05:05 Estimated GFR 28 ml/min 08/25/17 05:05 BUN/Creatinine Ratio 8 % 08/25/17 05:05 Glucose 73 mg/dL (75-100) L 08/25/17 05:05 POC Glucose 78 (70-105) 08/24/17 06:29 Osmolality 308 Mosm/kg 08/18/17 10:31 Uric Acid 7.1 mg/dL (3.5-7.6) 08/18/17 10:31 Calcium 7.3 mg/dL (8.4-10.2) L 08/25/17 05:05 Magnesium 2.20 mg/dL (1.7-2.3) 08/18/17 06:06 Iron 19 ug/dL (49-181) L 08/23/17 09:35 TIBC 196 mcg/dL (250-450) L 08/23/17 09:35 Ferritin 122.6 ng/mL (13.0-400.0) 08/24/17 05:21 Total Bilirubin < 0.20 mg/dL (0.1-1.2) 08/19/17 20:22 Direct Bilirubin < 0.2 mg/dL (0-0.2) 08/19/17 20:22 Indirect Bilirubin 0.0 mg/dL 08/19/17 20:22 AST 12 units/L (5-40) 08/19/17 20:22 ALT 14 units/L (7-56) 08/19/17 20:22 Alkaline Phosphatase 62 units/L (35-129) 08/19/17 20:22 Total Creatine Kinase 92 units/L (55-170) 08/18/17 06:06 Troponin T 0.027 ng/mL (0.00-0.029) 08/18/17 06:06 NT-Pro-B Natriuret Pep 91676 pg/mL (0-900) H 08/18/17 06:06 Serum Total Protein 5.8 g/dL (6.1-8.1) L 08/18/17 10:31 Total Protein 5.6 g/dL (6.3-8.2) L 08/19/17 20:22 Albumin 2.4 g/dL (3.9-5) L 08/19/17 20:22 Albumin/Globulin Ratio 0.8 % 08/19/17 20:22 Bcqha-5-Mndfebwdu 0.5 g/dL (0.2-0.3) H 08/18/17 10:31 Opsoh-5-Qlhsuelae 0.7 g/dL (0.5-0.9) 08/18/17 10:31 Beta Globulins 0.3 g/dL (0.2-0.5) 08/18/17 10:31 Gamma Globulins 1.3 g/dL (0.8-1.7) 08/18/17 10:31 Abnorm Protein Band 1 see below 08/18/17 10:31 PEP Interpretation see below H 08/18/17 10:31 Vitamin B12 533.2 pg/mL (211-911) 08/23/17 09:35 RBC Folic Acid >1000 ng/mL (>280) 08/23/17 09:35 TSH 2.700 mlU/mL (0.270-4.200) 08/19/17 20:22 Urine Color Yellow (Yellow) 08/18/17 06:34 Urine Turbidity Clear (Clear) 08/18/17 06:34 Urine pH 5.0 (5.0-7.0) 08/18/17 06:34 Ur Specific [place] 1.011 (1.003-1.030) 08/18/17 06:34 Urine Protein 100 mg/dl mg/dL (Negative) 08/18/17 06:34 Urine Glucose (UA) Neg mg/dL (Negative) 08/18/17 06:34 Urine Ketones Neg mg/dL (Negative) 08/18/17 06:34 Urine Blood Sm (Negative) 08/18/17 06:34 Urine Nitrite Neg (Negative) 08/18/17 06:34 Urine Bilirubin Neg (Negative) 08/18/17 06:34 Urine Urobilinogen < 2.0 mg/dL (<2.0) 08/18/17 06:34 Ur Leukocyte Esterase Lg (Negative) 08/18/17 06:34 Urine WBC (Auto) > 182.0 /HPF (0.0-6.0) H 08/18/17 06:34 Urine RBC (Auto) 14.0 /HPF (0.0-6.0) 08/18/17 06:34 Urine Bacteria (Auto) 2+ /HPF (Negative) 08/18/17 06:34 Urine WBC Clumps 3+ /HPF 08/18/17 06:34 Urine Osmolality 328 Mosm/kg 08/18/17 06:34 Urine Total Volume 3200 08/20/17 16:30 Urine Creatinine 42.7 mg/dL (0.1-20.0) H 08/19/17 Unknown Ur Total Protein 24 Hr 1440.00 (2-200) H 08/20/17 16:30 Urine Sodium 80 mmol/L 08/19/17 Unknown Urine Chloride 54.4 mmolL (110-250) L 08/18/17 06:34 Urine Total Protein 45 mg/dL (5-11.8) H 08/20/17 16:30 Urine Opiates Screen Presumptive negative 08/18/17 06:34 Urine Methadone Screen Presumptive negative 08/18/17 06:34 Ur Barbiturates Screen Presumptive negative 08/18/17 06:34 Ur Phencyclidine Scrn Presumptive negative 08/18/17 06:34 Ur Amphetamines Screen Presumptive negative 08/18/17 06:34 U Benzodiazepines Scrn Presumptive negative 08/18/17 06:34 Urine Cocaine Screen Presumptive negative 08/18/17 06:34 U Marijuana (THC) Screen Presumptive negative 08/18/17 06:34 Drugs of Abuse Note Disclamer 08/18/17 06:34 Blood Type O POSITIVE 08/23/17 09:35 Antibody Screen Negative 08/23/17 09:35 Crossmatch See Detail 08/23/17 09:35
--- NOTE | 2017-08-25 23:11 | Treadmill Report ---
INDICATION: Cardiomyopathy. ORDERING PHYSICIAN: Fatimah Coelho MD FINDINGS: There is evidence of a moderate size predominately fixed inferior wall defect with mild reversibility suggesting prior infarction in the right coronary artery distribution with mild shannan-infarct ischemia. The left ventricular cavity is moderately dilated. The left ventricular ejection fraction is measured at 45%. There is mild global left ventricular hypokinesis. IMPRESSION: 1. Abnormal perfusion scan. 2. Moderate-sized predominantly fixed inferior wall defect with mild reversibility suggesting prior infarction in the right coronary artery distribution with mild shannan-infarct ischemia. 3. Moderately dilated left ventricular cavity with an ejection fraction measured at 45% and global left ventricular hypokinesis. JOB# [id number] BELINDA/MILLY
[2017-08-26] MEDS: BIDIL 20/37.5MG PO SCH ×4 (05:47→22:33)
[2017-08-26 06:01] LABS: Hematocrit 23.9 % (35.5-45.6)
[2017-08-26 06:14] LABS: Calcium 7.6 mg/dL (8.4-10.2)
[2017-08-26] MEDS: cefTRIAXone 1 GM in NACL 0.9% 20 ML IV SCH (10:00)
--- NOTE | 2017-08-26 10:36 | Progress Note ---
Assessment and Plan Acute systolic heart failure 4 chamber dilated cardiomyopathy, ejection fraction 15-20% MPI: fixed inferior wall defect Bilateral moderate hydronephrosis Acute on chronic renal failure Anemia s/p transfusion of PRBCs Bilateral pleural effusions Hypertension SVT seen on telemetry, pt remained asymptomatic. Subjective Date of service: 08/26/17 Principal diagnosis: karina, obstructive uropathy Interval history: Patient has no cardiac complaints. SVT seen on telemetry monitoring this morning. The nurse was notified but failed to relay this info to cardiology until a hour later. It's reported the patient remained asymptomatic. Objective Vital Signs Temp Pulse Resp BP BP Pulse Ox 08/26/17 09:12 98.7 F 92 H 18 142/80 97 08/26/17 04:56 97 H 18 148/84 95 08/26/17 00:55 98.5 F 101 H 18 135/72 97 08/25/17 20:00 90 08/25/17 19:38 98.5 F 92 H 8 L 132/76 97 08/25/17 16:25 98.2 F 97 H 20 123/67 100 08/25/17 12:32 80 08/25/17 12:13 97.9 F 95 H 20 154/87 100 08/25/17 11:49 80 - Physical Examination General: No Apparent Distress HEENT: Positive: PERRL Neck: Positive: trachea midline Cardiac: Positive: Reg Rate and Rhythm Lungs: Positive: Decreased Breath Sounds Neuro: Positive: Grossly Intact Extremities: Present: +2 Edema - Labs and Meds CBC 08/26/17 Range/Units 05:21 Hgb 8.0 L (11.8-15.2) gm/dl Hct 23.9 L (35.5-45.6) % Comprehensive Metabolic Panel 08/19/17 08/26/17 Range/Units Unknown 05:21 Sodium 139 (137-145) mmol/L Potassium 3.9 (3.6-5.0) mmol/L Chloride 104.5 (98-107) mmol/L Carbon Dioxide 27 (22-30) mmol/L BUN 19 (9-20) mg/dL Creatinine 2.4 H (0.8-1.5) mg/dL Glucose 74 L (75-100) mg/dL Calcium 7.6 L (8.4-10.2) mg/dL Albumin See scanned report
[2017-08-26] MEDS: LOPRESSOR PO SCH ×2 (11:17→22:32)
[2017-08-26] MEDS: COREG PO SCH (12:01)
[2017-08-26] MEDS: ASPIRIN PO SCH (12:01)
[2017-08-26] MEDS: PEPCID PO SCH ×2 (12:01→22:33)
[2017-08-26] MEDS: COLACE PO SCH ×2 (12:04→22:31)
--- NOTE | 2017-08-26 14:37 | Progress Note ---
Assessment and Plan Impression: * Acute kidney injury - baseline renal function unknown * Obstructive uropathy * Acute systolic heart failure * Dialted cardiomyopathy - EF 15% * Bilateral hydronephrosis * Bladder mass * UTI * HTN * Anemia Plan: * Renal function has gradually improved * Santana catheter management per urology; urology recommendations noted * Abx per primary team * Daily lytes * Avoid nephrotoxins * Strict I/O - monitor for post obstructive diuresis Subjective Date of service: 08/26/17 Principal diagnosis: karina, obstructive uropathy Interval history: Patient reports swelling much improved. States that he ambulated montoya - breathing is comfortable. Objective - Vital Signs Vital signs: Vital Signs - 12hr 08/26/17 08/26/17 08/26/17 04:56 09:12 11:57 Temperature 98.7 F 98.2 F Pulse Rate 97 H 92 H 94 H Respiratory 18 18 18 Rate Blood Pressure 148/84 142/80 128/71 O2 Sat by Pulse 95 97 98 Oximetry 08/26/17 12:01 Temperature Pulse Rate Respiratory Rate Blood Pressure 128/67 O2 Sat by Pulse Oximetry - General Appearance General appearance: well-developed, well-nourished EENT: ATNC Respiratory: Present: Decreased Breath Sounds Cardiology: regular, S1S2 Gastrointestinal: normal, no tenderness, no distended Integumentary: no rash, warm and dry Neurologic: alert and oriented x3 Musculoskeletal: other (1+ edema) Psychiatric: cooperative - Lab 08/26/17 05:21 08/26/17 05:21 Most recent lab results Calcium 7.6 mg/dL (8.4-10.2) L 08/26/17 05:21 Magnesium 2.20 mg/dL (1.7-2.3) 08/18/17 06:06 Urine Creatinine 42.7 mg/dL (0.1-20.0) H 08/19/17 Unknown Ur Total Protein 24 Hr 1440.00 (2-200) H 08/20/17 16:30 Urine Sodium 80 mmol/L 08/19/17 Unknown Urine Total Protein 45 mg/dL (5-11.8) H 08/20/17 16:30
[2017-08-26] MEDS: HEPARIN SUB-Q SCH ×2 (18:57→22:31)
[2017-08-27 06:29] LABS: Calcium 7.9 mg/dL (8.4-10.2)
[2017-08-27] MEDS: BIDIL 20/37.5MG PO SCH ×3 (07:26→22:06)
[2017-08-27] MEDS: LOPRESSOR PO SCH ×3 (07:28→22:07)
[2017-08-27] MEDS: COLACE PO SCH ×2 (09:47→22:07)
[2017-08-27] MEDS: ASPIRIN PO SCH (09:47)
[2017-08-27] MEDS: HEPARIN SUB-Q SCH ×2 (09:47→22:06)
[2017-08-27] MEDS: PEPCID PO SCH ×2 (09:47→22:06)
--- NOTE | 2017-08-27 10:16 | Progress Note ---
Assessment and Plan Acute systolic heart failure 4 chamber dilated cardiomyopathy, ejection fraction 15-20% MPI: large but mostly fixed inferior defect, minimal reversibility, fragmented transmission artifact versus an old inferior myocardial infarction. Patient is not a candidate for coronary angiography as he is high risk for contrast nephropathy. In addition, patient has no chest pain. Bilateral moderate hydronephrosis Acute on chronic renal failure Anemia s/p transfusion of PRBCs Bilateral pleural effusions Hypertension NSVT seen on telemetry, no reoccurrence Recommendations: Continue medical therapy for dilated cardiomyopathy. For the nonsustained ventricular tachycardia, we'll recommend LifeVest placement before discharge. Subjective Date of service: 08/27/17 Principal diagnosis: karina, obstructive uropathy Interval history: Patient has no cardiac complaints. Reports his breathing is better. No reported events on telemetry monitoring overnight. Objective Vital Signs Temp Pulse Resp Resp BP BP Pulse Ox 08/27/17 07:59 97.9 F 87 20 126/68 93 08/27/17 05:00 90 96 08/27/17 04:59 98.0 F 90 20 144/81 96 08/27/17 00:16 85 97 08/27/17 00:15 98.5 F 85 20 128/75 97 08/26/17 22:33 87 128/67 08/26/17 22:32 87 128/67 08/26/17 22:00 87 20 08/26/17 19:21 98.8 F 87 20 129/72 97 08/26/17 17:31 98.3 F 86 18 131/76 98 08/26/17 14:00 87 08/26/17 12:01 128/67 08/26/17 11:57 98.2 F 94 H 18 128/71 98 08/26/17 11:17 86 - Physical Examination General: No Apparent Distress HEENT: Positive: PERRL Neck: Positive: trachea midline Cardiac: Positive: Reg Rate and Rhythm Lungs: Positive: Decreased Breath Sounds Neuro: Positive: Grossly Intact Extremities: Present: +2 Edema - Labs and Meds Comprehensive Metabolic Panel 08/27/17 Range/Units 05:19 Sodium 139 (137-145) mmol/L Potassium 4.0 (3.6-5.0) mmol/L Chloride 103.1 (98-107) mmol/L Carbon Dioxide 26 (22-30) mmol/L BUN 18 (9-20) mg/dL Creatinine 2.2 H (0.8-1.5) mg/dL Glucose 72 L (75-100) mg/dL Calcium 7.9 L (8.4-10.2) mg/dL
--- NOTE | 2017-08-27 13:01 | Progress Note ---
Assessment and Plan Impression: * Acute kidney injury - baseline renal function unknown * Obstructive uropathy * Acute systolic heart failure * Dialted cardiomyopathy - EF 15% * Bilateral hydronephrosis * Bladder mass * UTI * HTN * Anemia Plan: * Renal function has gradually improved * [place] catheter management per urology; urology recommendations noted * Abx per primary team - note d/c of Rocephin * Daily lytes * Avoid nephrotoxins * Strict I/O - monitor for post obstructive diuresis Subjective Date of service: 08/27/17 Principal diagnosis: karina, obstructive uropathy Interval history: Patient has no complaints today. Objective - Vital Signs Vital signs: Vital Signs - 12hr 08/27/17 08/27/17 08/27/17 04:59 05:00 07:59 Temperature 98.0 F 97.9 F Pulse Rate 90 90 87 Respiratory 20 20 Rate Blood Pressure 144/81 126/68 O2 Sat by Pulse 96 96 93 Oximetry 08/27/17 10:00 Temperature Pulse Rate 88 Respiratory Rate Blood Pressure O2 Sat by Pulse Oximetry - General Appearance General appearance: well-developed, well-nourished EENT: ATNC Respiratory: Present: Clear to Ascultation Cardiology: regular, S1S2 Gastrointestinal: normal, no tenderness, no distended Integumentary: warm and dry Neurologic: no focal deficit Musculoskeletal: other (1+ pitting edema) Psychiatric: cooperative - Lab 08/26/17 05:21 08/27/17 05:19 Most recent lab results Calcium 7.9 mg/dL (8.4-10.2) L 08/27/17 05:19 Magnesium 2.20 mg/dL (1.7-2.3) 08/18/17 06:06 Urine Creatinine 42.7 mg/dL (0.1-20.0) H 08/19/17 Unknown Ur Total Protein 24 Hr 1440.00 (2-200) H 08/20/17 16:30 Urine Sodium 80 mmol/L 08/19/17 Unknown Urine Total Protein 45 mg/dL (5-11.8) H 08/20/17 16:30
[2017-08-28] MEDS: BIDIL 20/37.5MG PO SCH ×3 (05:25→21:20)
[2017-08-28] MEDS: LOPRESSOR PO SCH ×3 (05:25→21:20)
[2017-08-28] MEDS: COLACE PO SCH ×2 (09:42→21:20)
[2017-08-28] MEDS: HEPARIN SUB-Q SCH ×2 (09:42→21:20)
[2017-08-28] MEDS: PEPCID PO SCH ×2 (09:42→21:20)
[2017-08-28] MEDS: ASPIRIN PO SCH (09:42)
--- NOTE | 2017-08-28 09:47 | Progress Note ---
Assessment and Plan 1. Dilated cardiomyopathy with four-chamber dilation LV ejection fraction 15-20 %. fixed inferior myocardial perfusion defect on stress MPI. 2. Chronic kidney disease 3. Essential hypertension 4. Nonsustained VT on telemetry monitoring. 5. Anemia probably secondary to chronic disease Plan. Patient is stable still has mild bilateral pedal edema. Continue diuresis and scheduled for life-vest before discharge Subjective Date of service: 08/28/17 Principal diagnosis: karina, obstructive uropathy Interval history: No cardiac symptoms Objective Vital Signs Temp Pulse Resp BP BP Pulse Ox 08/28/17 08:23 79 08/28/17 07:24 97.5 F L 77 18 130/80 98 08/28/17 04:57 83 96 08/28/17 04:56 98.4 F 83 20 133/84 97 08/27/17 23:50 98.2 F 08/27/17 23:49 82 125/75 98 08/27/17 23:23 84 08/27/17 19:11 99.3 F 83 125/70 97 08/27/17 17:05 98.2 F 81 20 142/77 96 08/27/17 13:21 98.0 F 83 20 132/79 98 08/27/17 11:38 98.0 F 83 20 132/79 98 08/27/17 10:00 88 - Physical Examination General: Appears Well, No Apparent Distress HEENT: Positive: PERRL Neck: Positive: trachea midline. Negative: JVD/HJR Cardiac: Positive: Regular Rate, S1/S2 Lungs: Positive: clear to auscultation. Negative: No Wheeze, Rales, Rhonchi Neuro: Positive: Grossly Intact Abdomen: Positive: Unremarkable, Soft Extremities: Present: +1 Edema - Telemetry EKG Rhythm: Sinus Rhythm
[2017-08-28 10:11] LABS: Calcium 8.2 mg/dL (8.4-10.2)
--- NOTE | 2017-08-28 11:47 | Progress Note ---
Assessment and Plan Impression: * Acute kidney injury - baseline renal function unknown; resolved * Obstructive uropathy * Acute systolic heart failure * Dialted cardiomyopathy - EF 15% * Bilateral hydronephrosis * Bladder mass * UTI * HTN * Anemia Plan: * Renal function is stable - likely new baseline; continue to monitor * [place] catheter management per urology; urology recommendations noted * Cardiology recommendations noted - to be discharged with life vest * Daily lytes * Avoid nephrotoxins * Strict I/O * Needs outpatient urology follow up for barfield mgmt and evaluation of bladder mass; nephrology follow up in 1-2 weeks Subjective Date of service: 08/28/17 Principal diagnosis: karina, obstructive uropathy Interval history: Patient has no complaints today. Denies SOB Objective - Vital Signs Vital signs: Vital Signs - 12hr 08/27/17 08/27/17 08/28/17 23:49 23:50 04:56 Temperature 98.2 F 98.4 F Pulse Rate 82 83 Respiratory 20 Rate Blood Pressure 125/75 133/84 O2 Sat by Pulse 98 97 Oximetry 08/28/17 08/28/17 08/28/17 04:57 07:24 08:23 Temperature 97.5 F L Pulse Rate 83 77 79 Respiratory 18 Rate Blood Pressure 130/80 O2 Sat by Pulse 96 98 Oximetry - General Appearance General appearance: well-developed, well-nourished EENT: ATNC Respiratory: Present: Clear to Ascultation Cardiology: regular, S1S2 Gastrointestinal: normal, no tenderness, no distended Integumentary: no rash, warm and dry Neurologic: no focal deficit Musculoskeletal: other (1+ edema) Psychiatric: cooperative - Lab 08/26/17 05:21 08/28/17 09:04 Most recent lab results Calcium 8.2 mg/dL (8.4-10.2) L 08/28/17 09:04 Magnesium 2.20 mg/dL (1.7-2.3) 08/18/17 06:06 Urine Creatinine 42.7 mg/dL (0.1-20.0) H 08/19/17 Unknown Ur Total Protein 24 Hr 1440.00 (2-200) H 08/20/17 16:30 Urine Sodium 80 mmol/L 08/19/17 Unknown Urine Total Protein 45 mg/dL (5-11.8) H 08/20/17 16:30
--- NOTE | 2017-08-28 14:35 | Progress Note ---
Assessment and Plan Assessment and plan: 67-year-old male with a past medical history of hypertension (diagnosed 25 years ago and he has never took medications) presented to the hospital with complaints of generalized swelling and progressively worsening dyspnea on exertion for at least 3 weeks. Patient also c/o chronic orthopnea and can't remember the last time he was able lie flat. Patient denies chest pain, cough, or fever. In the ER his blood pressure was 180/107 on presentation. Initial labs notable for a creatinine of 3.3 and a hematocrit of 26.3. Patient will be admitted for further workup and management. Acute respiratory failure, resolved -Likely from underlying pleural effusion and acute CHF exacerbation - Provided supplemental oxygen to keep oxygen saturation above 92% - treated with lasix iv milrinone Acute CHF with systolic dysfuction - 2d echo showed EF 15-20% - cont lasix, BB - cardiology following - treated with milrinone - stress test was done and showed fixed defect in the inferior wall and plan to do cath tomorrow Volume overload with generalized anasarca - from acute CHF and renal failure - daily wt, monitor ins/os Bilateral pleural effusion - given Lasix UTI, treated with antibiotics, Bilateral hydronephrosis with possible bladder mass vs severe BPH - Urology consulted and recommended F/u with [place] and Hypertensive urgency - Now on coreg and imdur Acute renal failure, 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 History Interval history: Patient was seen and evaluated this morning, patient's shortness of breath subsided. Bilateral leg swelling is getting better. Hospitalist Physical - Physical exam Narrative exam: Not in cardiopulmonary distress. The patient appeared well nourished and normally developed. Vital signs as documented. Head exam is unremarkable. No scleral icterus . Neck is without jugular venous distension, thyromegaly, or carotid bruits. Lungs are clear to auscultation. Cardiac exam reveals regular rate and Rhythm. First and second heart sounds normal. No murmurs, rubs or gallops. Abdominal exam reveals normal bowel sounds, no masses, no organomegaly and no aortic enlargement. Extremities +1 pedal and pretibial edema. CYTOGENETIC TECHNICIAN: Alert and oriented 3. No focal weakness. - Constitutional Vitals: Temp Pulse Resp BP Pulse Ox 97.5 F L 79 18 130/80 98 08/28/17 07:24 08/28/17 08:23 08/28/17 07:24 08/28/17 07:24 08/28/17 07:24 General appearance: Present: no acute distress Results - Labs CBC & Chem 7: 08/26/17 05:21 08/28/17 09:04 Labs: Laboratory Last Values WBC 6.8 K/mm3 (4.5-11.0) 08/22/17 13:48 RBC 2.75 M/mm3 (3.65-5.03) L 08/22/17 13:48 Hgb 8.0 gm/dl (11.8-15.2) L 08/26/17 05:21 Hct 23.9 % (35.5-45.6) L 08/26/17 05:21 MCV 84 fl (84-94) 08/22/17 13:48 MCH 27 pg (28-32) L 08/22/17 13:48 MCHC 32 % (32-34) 08/22/17 13:48 RDW 15.8 % (13.2-15.2) H 08/22/17 13:48 Plt Count 321 K/mm3 (140-440) 08/22/17 13:48 Lymph % (Auto) 8.6 % (13.4-35.0) L 08/22/17 13:48 [place] % (Auto) 8.9 % (0.0-7.3) H 08/22/17 13:48 Eos % (Auto) 5.5 % (0.0-4.3) H 08/22/17 13:48 Baso % (Auto) 0.2 % (0.0-1.8) 08/22/17 13:48 Lymph # 0.6 K/mm3 (1.2-5.4) L 08/22/17 13:48 [place] # 0.6 K/mm3 (0.0-0.8) 08/22/17 13:48 Eos # 0.4 K/mm3 (0.0-0.4) 08/22/17 13:48 Baso # 0.0 K/mm3 (0.0-0.1) 08/22/17 13:48 Seg Neutrophils % 76.8 % (40.0-70.0) H 08/22/17 13:48 Seg Neutrophils # 5.2 K/mm3 (1.8-7.7) 08/22/17 13:48 PT 14.3 Sec. (12.2-14.9) 08/18/17 06:06 INR 1.05 (0.87-1.13) 08/18/17 06:06 APTT 39.4 Sec. (24.2-36.6) H 08/18/17 06:06 Sodium 139 mmol/L (137-145) 08/28/17 09:04 Potassium 3.9 mmol/L (3.6-5.0) 08/28/17 09:04 Chloride 100.3 mmol/L (98-107) 08/28/17 09:04 Carbon Dioxide 26 mmol/L (22-30) 08/28/17 09:04 Anion Gap 17 mmol/L 08/28/17 09:04 BUN 18 mg/dL (9-20) 08/28/17 09:04 Creatinine 2.4 mg/dL (0.8-1.5) H 08/28/17 09:04 Estimated GFR 33 ml/min 08/28/17 09:04 BUN/Creatinine Ratio 8 % 08/28/17 09:04 Glucose 100 mg/dL (75-100) 08/28/17 09:04 POC Glucose 138 (70-105) H 08/27/17 21:55 Osmolality 308 Mosm/kg 08/18/17 10:31 Uric Acid 7.1 mg/dL (3.5-7.6) 08/18/17 10:31 Calcium 8.2 mg/dL (8.4-10.2) L 08/28/17 09:04 Magnesium 2.20 mg/dL (1.7-2.3) 08/18/17 06:06 Iron 19 ug/dL (49-181) L 08/23/17 09:35 TIBC 196 mcg/dL (250-450) L 08/23/17 09:35 Ferritin 122.6 ng/mL (13.0-400.0) 08/24/17 05:21 Total Bilirubin < 0.20 mg/dL (0.1-1.2) 08/19/17 20:22 Direct Bilirubin < 0.2 mg/dL (0-0.2) 08/19/17 20:22 Indirect Bilirubin 0.0 mg/dL 08/19/17 20:22 AST 12 units/L (5-40) 08/19/17 20:22 ALT 14 units/L (7-56) 08/19/17 20:22 Alkaline Phosphatase 62 units/L (35-129) 08/19/17 20:22 Total Creatine Kinase 92 units/L (55-170) 08/18/17 06:06 Troponin T 0.027 ng/mL (0.00-0.029) 08/18/17 06:06 NT-Pro-B Natriuret Pep 07870 pg/mL (0-900) H 08/18/17 06:06 Serum Total Protein 5.8 g/dL (6.1-8.1) L 08/18/17 10:31 Total Protein 5.6 g/dL (6.3-8.2) L 08/19/17 20:22 Albumin See scanned report 08/19/17 Unknown Albumin/Globulin Ratio 0.8 % 08/19/17 20:22 Sesfo-5-[id number] See scanned report 08/19/17 Unknown [id number]-8-[id number] See scanned report 08/19/17 Unknown Beta Globulins See scanned report 08/19/17 Unknown Gamma Globulins See scanned report 08/19/17 Unknown Abnorm Protein Band 1 see below 08/18/17 10:31 PEP Interpretation See scanned report 08/19/17 Unknown Vitamin B12 533.2 pg/mL (211-911) 08/23/17 09:35 RBC Folic Acid >1000 ng/mL (>280) 08/23/17 09:35 TSH 2.700 mlU/mL (0.270-4.200) 08/19/17 20:22 Urine Color Yellow (Yellow) 08/18/17 06:34 Urine Turbidity Clear (Clear) 08/18/17 06:34 Urine pH 5.0 (5.0-7.0) 08/18/17 06:34 Ur Specific [place] 1.011 (1.003-1.030) 08/18/17 06:34 Urine Protein 100 mg/dl mg/dL (Negative) 08/18/17 06:34 Urine Glucose (UA) Neg mg/dL (Negative) 08/18/17 06:34 Urine Ketones Neg mg/dL (Negative) 08/18/17 06:34 Urine Blood Sm (Negative) 08/18/17 06:34 Urine Nitrite Neg (Negative) 08/18/17 06:34 Urine Bilirubin Neg (Negative) 08/18/17 06:34 Urine Urobilinogen < 2.0 mg/dL (<2.0) 08/18/17 06:34 Ur Leukocyte Esterase Lg (Negative) 08/18/17 06:34 Urine WBC (Auto) > 182.0 /HPF (0.0-6.0) H 08/18/17 06:34 Urine RBC (Auto) 14.0 /HPF (0.0-6.0) 08/18/17 06:34 Urine Bacteria (Auto) 2+ /HPF (Negative) 08/18/17 06:34 Urine WBC Clumps 3+ /HPF 08/18/17 06:34 Urine Osmolality 328 Mosm/kg 08/18/17 06:34 Ur Random Creatinine See scanned report 08/19/17 Unknown U Random Total Protein See scanned report 08/19/17 Unknown Urine Total Volume 3200 08/20/17 16:30 Urine Creatinine 42.7 mg/dL (0.1-20.0) H 08/19/17 Unknown Ur Total Protein 24 Hr 1440.00 (2-200) H 08/20/17 16:30 Protein/Creatinin Ratio See scanned report 08/19/17 Unknown Urine Sodium 80 mmol/L 08/19/17 Unknown Urine Chloride 54.4 mmolL (110-250) L 08/18/17 06:34 Urine Total Protein 45 mg/dL (5-11.8) H 08/20/17 16:30 U Abnormal Prot Band 1 See scanned report 08/19/17 Unknown U Abnormal Prot Band 2 See scanned report 08/19/17 Unknown U Abnormal Prot Band 3 See scanned report 08/19/17 Unknown Urine Opiates Screen Presumptive negative 08/18/17 06:34 Urine Methadone Screen Presumptive negative 08/18/17 06:34 Ur Barbiturates Screen Presumptive negative 08/18/17 06:34 Ur Phencyclidine Scrn Presumptive negative 08/18/17 06:34 Ur Amphetamines Screen Presumptive negative 08/18/17 06:34 U Benzodiazepines Scrn Presumptive negative 08/18/17 06:34 Urine Cocaine Screen Presumptive negative 08/18/17 06:34 U Marijuana (THC) Screen Presumptive negative 08/18/17 06:34 Drugs of Abuse Note Disclamer 08/18/17 06:34 Blood Type O POSITIVE 08/23/17 09:35 Antibody Screen Negative 08/23/17 09:35 Crossmatch See Detail 08/23/17 09:35
--- NOTE | 2017-08-28 14:38 | Progress Note ---
Assessment and Plan Assessment and plan: 67-year-old male with a past medical history of hypertension (diagnosed 25 years ago and he has never took medications) presented to the hospital with complaints of generalized swelling and progressively worsening dyspnea on exertion for at least 3 weeks. Patient also c/o chronic orthopnea and can't remember the last time he was able lie flat. Patient denies chest pain, cough, or fever. In the ER his blood pressure was 180/107 on presentation. Initial labs notable for a creatinine of 3.3 and a hematocrit of 26.3. Patient will be admitted for further workup and management. Acute respiratory failure, resolved -Likely from underlying pleural effusion and acute CHF exacerbation - Provided supplemental oxygen to keep oxygen saturation above 92% - treated with lasix iv milrinone Acute CHF with systolic dysfuction - 2d echo showed EF 15-20% - cont lasix, BB - cardiology following - treated with milrinone - stress test was done and showed fixed defect in the inferior wall - patient need life vest on discharge Volume overload with generalized anasarca - from acute CHF and renal failure - daily wt, monitor ins/os Bilateral pleural effusion - given Lasix UTI, treated with antibiotics, Bilateral hydronephrosis with possible bladder mass vs severe BPH - Urology consulted and recommended F/u with [place] Hypertensive urgency - Now on coreg and imdur Acute renal failure, 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 History Interval history: Patient was seen and evaluated this morning, patient's shortness of breath subsided. Bilateral leg swelling is getting better. Hospitalist Physical - Physical exam Narrative exam: Not in cardiopulmonary distress. The patient appeared well nourished and normally developed. Vital signs as documented. Head exam is unremarkable. No scleral icterus . Neck is without jugular venous distension, thyromegaly, or carotid bruits. Lungs are clear to auscultation. Cardiac exam reveals regular rate and Rhythm. First and second heart sounds normal. No murmurs, rubs or gallops. Abdominal exam reveals normal bowel sounds, no masses, no organomegaly and no aortic enlargement. Extremities +1 pedal and pretibial edema. INTERACTIVE MEDIA PROJECT MANAGER: Alert and oriented 3. No focal weakness. - Constitutional Vitals: Temp Pulse Resp BP Pulse Ox 97.5 F L 79 18 130/80 98 08/28/17 07:24 08/28/17 08:23 08/28/17 07:24 08/28/17 07:24 08/28/17 07:24 General appearance: Present: no acute distress Results - Labs CBC & Chem 7: 08/26/17 05:21 08/28/17 09:04 Labs: Laboratory Last Values WBC 6.8 K/mm3 (4.5-11.0) 08/22/17 13:48 RBC 2.75 M/mm3 (3.65-5.03) L 08/22/17 13:48 Hgb 8.0 gm/dl (11.8-15.2) L 08/26/17 05:21 Hct 23.9 % (35.5-45.6) L 08/26/17 05:21 MCV 84 fl (84-94) 08/22/17 13:48 MCH 27 pg (28-32) L 08/22/17 13:48 MCHC 32 % (32-34) 08/22/17 13:48 RDW 15.8 % (13.2-15.2) H 08/22/17 13:48 Plt Count 321 K/mm3 (140-440) 08/22/17 13:48 Lymph % (Auto) 8.6 % (13.4-35.0) L 08/22/17 13:48 [place] % (Auto) 8.9 % (0.0-7.3) H 08/22/17 13:48 Eos % (Auto) 5.5 % (0.0-4.3) H 08/22/17 13:48 Baso % (Auto) 0.2 % (0.0-1.8) 08/22/17 13:48 Lymph # 0.6 K/mm3 (1.2-5.4) L 08/22/17 13:48 [place] # 0.6 K/mm3 (0.0-0.8) 08/22/17 13:48 Eos # 0.4 K/mm3 (0.0-0.4) 08/22/17 13:48 Baso # 0.0 K/mm3 (0.0-0.1) 08/22/17 13:48 Seg Neutrophils % 76.8 % (40.0-70.0) H 08/22/17 13:48 Seg Neutrophils # 5.2 K/mm3 (1.8-7.7) 08/22/17 13:48 PT 14.3 Sec. (12.2-14.9) 08/18/17 06:06 INR 1.05 (0.87-1.13) 08/18/17 06:06 APTT 39.4 Sec. (24.2-36.6) H 08/18/17 06:06 Sodium 139 mmol/L (137-145) 08/28/17 09:04 Potassium 3.9 mmol/L (3.6-5.0) 08/28/17 09:04 Chloride 100.3 mmol/L (98-107) 08/28/17 09:04 Carbon Dioxide 26 mmol/L (22-30) 08/28/17 09:04 Anion Gap 17 mmol/L 08/28/17 09:04 BUN 18 mg/dL (9-20) 08/28/17 09:04 Creatinine 2.4 mg/dL (0.8-1.5) H 08/28/17 09:04 Estimated GFR 33 ml/min 08/28/17 09:04 BUN/Creatinine Ratio 8 % 08/28/17 09:04 Glucose 100 mg/dL (75-100) 08/28/17 09:04 POC Glucose 138 (70-105) H 08/27/17 21:55 Osmolality 308 Mosm/kg 08/18/17 10:31 Uric Acid 7.1 mg/dL (3.5-7.6) 08/18/17 10:31 Calcium 8.2 mg/dL (8.4-10.2) L 08/28/17 09:04 Magnesium 2.20 mg/dL (1.7-2.3) 08/18/17 06:06 Iron 19 ug/dL (49-181) L 08/23/17 09:35 TIBC 196 mcg/dL (250-450) L 08/23/17 09:35 Ferritin 122.6 ng/mL (13.0-400.0) 08/24/17 05:21 Total Bilirubin < 0.20 mg/dL (0.1-1.2) 08/19/17 20:22 Direct Bilirubin < 0.2 mg/dL (0-0.2) 08/19/17 20:22 Indirect Bilirubin 0.0 mg/dL 08/19/17 20:22 AST 12 units/L (5-40) 08/19/17 20:22 ALT 14 units/L (7-56) 08/19/17 20:22 Alkaline Phosphatase 62 units/L (35-129) 08/19/17 20:22 Total Creatine Kinase 92 units/L (55-170) 08/18/17 06:06 Troponin T 0.027 ng/mL (0.00-0.029) 08/18/17 06:06 NT-Pro-B Natriuret Pep 43767 pg/mL (0-900) H 08/18/17 06:06 Serum Total Protein 5.8 g/dL (6.1-8.1) L 08/18/17 10:31 Total Protein 5.6 g/dL (6.3-8.2) L 08/19/17 20:22 Albumin See scanned report 08/19/17 Unknown Albumin/Globulin Ratio 0.8 % 08/19/17 20:22 [id number]-7-Hrpughuqh See scanned report 08/19/17 Unknown Lysdy-5-Hgtlyitoi See scanned report 08/19/17 Unknown Beta Globulins See scanned report 08/19/17 Unknown Gamma Globulins See scanned report 08/19/17 Unknown Abnorm Protein Band 1 see below 08/18/17 10:31 PEP Interpretation See scanned report 08/19/17 Unknown Vitamin B12 533.2 pg/mL (211-911) 08/23/17 09:35 RBC Folic Acid >1000 ng/mL (>280) 08/23/17 09:35 TSH 2.700 mlU/mL (0.270-4.200) 08/19/17 20:22 Urine Color Yellow (Yellow) 08/18/17 06:34 Urine Turbidity Clear (Clear) 08/18/17 06:34 Urine pH 5.0 (5.0-7.0) 08/18/17 06:34 Ur Specific [place] 1.011 (1.003-1.030) 08/18/17 06:34 Urine Protein 100 mg/dl mg/dL (Negative) 08/18/17 06:34 Urine Glucose (UA) Neg mg/dL (Negative) 08/18/17 06:34 Urine Ketones Neg mg/dL (Negative) 08/18/17 06:34 Urine Blood Sm (Negative) 08/18/17 06:34 Urine Nitrite Neg (Negative) 08/18/17 06:34 Urine Bilirubin Neg (Negative) 08/18/17 06:34 Urine Urobilinogen < 2.0 mg/dL (<2.0) 08/18/17 06:34 Ur Leukocyte Esterase Lg (Negative) 08/18/17 06:34 Urine WBC (Auto) > 182.0 /HPF (0.0-6.0) H 08/18/17 06:34 Urine RBC (Auto) 14.0 /HPF (0.0-6.0) 08/18/17 06:34 Urine Bacteria (Auto) 2+ /HPF (Negative) 08/18/17 06:34 Urine WBC Clumps 3+ /HPF 08/18/17 06:34 Urine Osmolality 328 Mosm/kg 08/18/17 06:34 Ur Random Creatinine See scanned report 08/19/17 Unknown U Random Total Protein See scanned report 08/19/17 Unknown Urine Total Volume 3200 08/20/17 16:30 Urine Creatinine 42.7 mg/dL (0.1-20.0) H 08/19/17 Unknown Ur Total Protein 24 Hr 1440.00 (2-200) H 08/20/17 16:30 Protein/Creatinin Ratio See scanned report 08/19/17 Unknown Urine Sodium 80 mmol/L 08/19/17 Unknown Urine Chloride 54.4 mmolL (110-250) L 08/18/17 06:34 Urine Total Protein 45 mg/dL (5-11.8) H 08/20/17 16:30 U Abnormal Prot Band 1 See scanned report 08/19/17 Unknown U Abnormal Prot Band 2 See scanned report 08/19/17 Unknown U Abnormal Prot Band 3 See scanned report 08/19/17 Unknown Urine Opiates Screen Presumptive negative 08/18/17 06:34 Urine Methadone Screen Presumptive negative 08/18/17 06:34 Ur Barbiturates Screen Presumptive negative 08/18/17 06:34 Ur Phencyclidine Scrn Presumptive negative 08/18/17 06:34 Ur Amphetamines Screen Presumptive negative 08/18/17 06:34 U Benzodiazepines Scrn Presumptive negative 08/18/17 06:34 Urine Cocaine Screen Presumptive negative 08/18/17 06:34 U Marijuana (THC) Screen Presumptive negative 08/18/17 06:34 Drugs of Abuse Note Disclamer 08/18/17 06:34 Blood Type O POSITIVE 08/23/17 09:35 Antibody Screen Negative 08/23/17 09:35 Crossmatch See Detail 08/23/17 09:35
[2017-08-29] MEDS: LOPRESSOR PO SCH ×3 (05:51→21:52)
[2017-08-29] MEDS: BIDIL 20/37.5MG PO SCH ×3 (05:51→21:49)
[2017-08-29 07:56] LABS: Basophils % (Auto) 0.7 % (0.0-1.8); Eosinophils # (Auto) 0.1 K/mm3 (0.0-0.4); Eosinophils % (Auto) 2.2 % (0.0-4.3); Hematocrit 22.6 % (35.5-45.6); Hemoglobin 7.4 gm/dl (11.8-15.2); Lymphocytes # (Auto) 0.5 K/mm3 (1.2-5.4); Lymphocytes % (Auto) 10.2 % (13.4-35.0); Mean Corpuscular HGB Conc 33 % (32-34); Mean Corpuscular Hemoglobin 27 pg (28-32); Mean Corpuscular Volume 83 fl (84-94); Monocytes # (Auto) 0.6 K/mm3 (0.0-0.8); Monocytes % (Auto) 13.3 % (0.0-7.3); Platelet Count 343 K/mm3 (140-440); Red Blood Count 2.73 M/mm3 (3.65-5.03); Red Cell Distribution Width 15.2 % (13.2-15.2)
[2017-08-29 08:17] LABS: Calcium 7.9 mg/dL (8.4-10.2)
--- NOTE | 2017-08-29 09:27 | Progress Note ---
Assessment and Plan 1. Dilated cardiomyopathy with four-chamber dilation LV ejection fraction 15-20 %. fixed inferior myocardial perfusion defect on stress MPI. 2. Chronic kidney disease 3. Essential hypertension 4. Nonsustained VT on telemetry monitoring. 5. Anemia probably secondary to chronic disease Plan. Patient is stable still has mild bilateral pedal edema. Continue diuresis and scheduled for life-vest before discharge Subjective Date of service: 08/29/17 Principal diagnosis: karina, obstructive uropathy Interval history: No cardiac symptoms Objective Vital Signs Temp Pulse Resp BP BP Pulse Ox 08/29/17 08:02 98.4 F 79 18 119/72 98 08/29/17 04:55 98.1 F 85 18 126/81 98 08/29/17 00:00 98.5 F 82 18 120/89 97 08/28/17 19:40 98.2 F 85 18 131/74 98 08/28/17 15:21 97.6 F 83 18 134/67 97 - Physical Examination General: Appears Well, No Apparent Distress HEENT: Positive: PERRL Neck: Positive: trachea midline. Negative: JVD/HJR Cardiac: Positive: Regular Rate, S1/S2, S3, PMI, Dilated, Laterally Displaced Lungs: Positive: clear to auscultation, No Wheeze, Rales, Rhonchi Neuro: Positive: Grossly Intact Abdomen: Positive: Unremarkable, Soft Extremities: Present: +1 Edema - Labs and Meds CBC 08/29/17 Range/Units 07:16 WBC 4.5 (4.5-11.0) K/mm3 RBC 2.73 L (3.65-5.03) M/mm3 Hgb 7.4 L (11.8-15.2) gm/dl Hct 22.6 L (35.5-45.6) % Plt Count 343 (140-440) K/mm3 Lymph # 0.5 L (1.2-5.4) K/mm3 [place] # 0.6 (0.0-0.8) K/mm3 Eos # 0.1 (0.0-0.4) K/mm3 Baso # 0.0 (0.0-0.1) K/mm3 Comprehensive Metabolic Panel 08/28/17 08/29/17 Range/Units 09:04 07:16 Sodium 139 139 (137-145) mmol/L Potassium 3.9 4.1 (3.6-5.0) mmol/L Chloride 100.3 103.9 (98-107) mmol/L Carbon Dioxide 26 25 (22-30) mmol/L BUN 18 18 (9-20) mg/dL Creatinine 2.4 H 2.3 H (0.8-1.5) mg/dL Glucose 100 79 (75-100) mg/dL Calcium 8.2 L 7.9 L (8.4-10.2) mg/dL
[2017-08-29] MEDS: COLACE PO SCH ×2 (10:29→21:52)
[2017-08-29] MEDS: PEPCID PO SCH ×2 (10:29→21:52)
[2017-08-29] MEDS: ASPIRIN PO SCH (10:29)
[2017-08-29] MEDS: HEPARIN SUB-Q SCH ×2 (10:30→21:52)
--- NOTE | 2017-08-29 11:51 | Progress Note ---
Assessment and Plan Impression: * Acute kidney injury secondary to obstructive uropathy on probable chronic kidney disease * Obstructive uropathy * Acute systolic heart failure * Dialted cardiomyopathy - EF 15% * Bilateral hydronephrosis * Bladder mass * UTI * HTN * Anemia Plan: * Renal function remains stable - SCr 2.2-2.4mg/dL is likely new baseline * Barfield catheter management per urology; urology recommendations noted * Cardiology recommendations noted - awaiting LifeVest * Daily lytes * Avoid nephrotoxins * Strict I/O * Needs outpatient urology follow up for barfield mgmt and evaluation of bladder mass; nephrology follow up in 1-2 weeks Subjective Date of service: 08/29/17 Principal diagnosis: karina, obstructive uropathy Interval history: Denies SOB. Reports good appetite. Objective - Vital Signs Vital signs: Vital Signs - 12hr 08/29/17 08/29/17 08/29/17 00:00 04:55 08:02 Temperature 98.5 F 98.1 F 98.4 F Pulse Rate 82 85 79 Respiratory 18 18 18 Rate Blood Pressure 126/81 119/72 Blood Pressure 120/89 [Left] O2 Sat by Pulse 97 98 98 Oximetry 08/29/17 10:00 Temperature Pulse Rate 76 Respiratory Rate Blood Pressure Blood Pressure [Left] O2 Sat by Pulse Oximetry - General Appearance General appearance: well-developed, well-nourished EENT: ATNC Respiratory: Present: Clear to Ascultation Cardiology: regular, S1S2 Gastrointestinal: normal, no tenderness, no distended Neurologic: no focal deficit Musculoskeletal: other (+edema) Psychiatric: mood/affect appropriate, cooperative - Lab 08/29/17 07:16 08/29/17 07:16 Most recent lab results Calcium 7.9 mg/dL (8.4-10.2) L 08/29/17 07:16 Magnesium 2.20 mg/dL (1.7-2.3) 08/18/17 06:06 Urine Creatinine 42.7 mg/dL (0.1-20.0) H 08/19/17 Unknown Ur Total Protein 24 Hr 1440.00 (2-200) H 08/20/17 16:30 Urine Sodium 80 mmol/L 08/19/17 Unknown Urine Total Protein 45 mg/dL (5-11.8) H 08/20/17 16:30
[2017-08-30] MEDS: LOPRESSOR PO SCH ×2 (05:10→15:31)
[2017-08-30] MEDS: BIDIL 20/37.5MG PO SCH ×2 (05:10→15:32)
--- NOTE | 2017-08-30 09:05 | Progress Note ---
Assessment and Plan - Patient Problems (1) MEREDITH (acute kidney injury) Current Visit: Yes Status: Acute Plan to address problem: renal function improving. Scr down to 2.3, Santana draining well, non oliguric. H/ O bladder mass- Pt to follow up with urology. (2) Obstructive uropathy Current Visit: Yes Status: Acute (3) HTN (hypertension) Current Visit: Yes Status: Chronic (4) Dilated cardiomyopathy Current Visit: Yes Status: Chronic (5) Bladder mass Current Visit: Yes Status: Acute (6) Hypocalcemia Current Visit: Yes Status: Acute Plan to address problem: check ionised calcium,Magnesium, P levels (7) Anemia Current Visit: Yes Status: Chronic Subjective Date of service: 08/30/17 Principal diagnosis: meredith, obstructive uropathy Interval history: alert, oriented, denies CP or SOB Objective - Vital Signs Vital signs: Vital Signs - 12hr 08/29/17 08/30/17 08/30/17 23:54 03:37 07:54 Temperature 98.4 F 98.2 F 98.6 F Pulse Rate 86 81 78 Respiratory 18 18 20 Rate Blood Pressure 124/78 135/83 140/85 O2 Sat by Pulse 97 97 96 Oximetry - General Appearance General appearance: well-developed EENT: mucous membranes moist Neck: no JVD Respiratory: Present: Clear to Ascultation Cardiology: regular Gastrointestinal: normoactive bowel sounds Neurologic: alert and oriented x3 Musculoskeletal: other (1+edema) Psychiatric: mood/affect appropriate, cooperative - Lab 08/29/17 07:16 08/29/17 07:16 Most recent lab results Calcium 7.9 mg/dL (8.4-10.2) L 08/29/17 07:16 Magnesium 2.20 mg/dL (1.7-2.3) 08/18/17 06:06 Urine Creatinine 42.7 mg/dL (0.1-20.0) H 08/19/17 Unknown Ur Total Protein 24 Hr 1440.00 (2-200) H 08/20/17 16:30 Urine Sodium 80 mmol/L 08/19/17 Unknown Urine Total Protein 45 mg/dL (5-11.8) H 08/20/17 16:30
[2017-08-30] MEDS: HEPARIN SUB-Q SCH (10:18)
[2017-08-30] MEDS: COLACE PO SCH (10:19)
[2017-08-30] MEDS: PEPCID PO SCH (10:19)
[2017-08-30] MEDS: ASPIRIN PO SCH (10:19)
--- NOTE | 2017-08-30 12:07 | Progress Note ---
Assessment and Plan Acute systolic heart failure 4 chamber dilated cardiomyopathy, ejection fraction 15-20% MPI: large but mostly fixed inferior defect, minimal reversibility, fragmented transmission artifact versus an old inferior myocardial infarction. Patient is not a candidate for coronary angiography as he is high risk for contrast nephropathy. In addition, patient has no chest pain. Bilateral moderate hydronephrosis Acute on chronic renal failure Anemia s/p transfusion of PRBCs Bilateral pleural effusions Hypertension NSVT seen on telemetry, no reoccurrence Recommendations: Continue medical therapy for his dilated cardiomyopathy. Further cardiac evaluation will be done as an outpatient. LifeVest placement before discharge. Once discharged, patient advised to f/u with [facility]. Subjective Date of service: 08/30/17 Principal diagnosis: karina, obstructive uropathy Interval history: Patient has no complaints. No reported events on telemetry monitoring overnight. Awaits life vest placement. Objective Vital Signs Temp Pulse Resp BP Pulse Ox 08/30/17 07:54 98.6 F 78 20 140/85 96 08/30/17 03:37 98.2 F 81 18 135/83 97 08/29/17 23:54 98.4 F 86 18 124/78 97 08/29/17 20:35 80 08/29/17 19:23 98.5 F 18 129/81 08/29/17 15:35 98.3 F 80 16 124/74 98 08/29/17 14:45 83 123/72 08/29/17 14:44 83 123/72 - Physical Examination General: No Apparent Distress HEENT: Positive: PERRL Neck: Positive: trachea midline Cardiac: Positive: Reg Rate and Rhythm Lungs: Positive: Decreased Breath Sounds Neuro: Positive: Grossly Intact Extremities: Present: +1 Edema
--- NOTE | 2017-08-30 15:25 | Progress Note ---
Assessment and Plan Assessment and plan: 67-year-old male with a past medical history of hypertension (diagnosed 25 years ago and he has never took medications) presented to the hospital with complaints of generalized swelling and progressively worsening dyspnea on exertion for at least 3 weeks. Patient also c/o chronic orthopnea and can't remember the last time he was able lie flat. Patient denies chest pain, cough, or fever. In the ER his blood pressure was 180/107 on presentation. Initial labs notable for a creatinine of 3.3 and a hematocrit of 26.3. Patient will be admitted for further workup and management. Acute respiratory failure, resolved -Likely from underlying pleural effusion and acute CHF exacerbation - Provided supplemental oxygen to keep oxygen saturation above 92% - treated with lasix iv milrinone Acute CHF with systolic dysfuction - 2d echo showed EF 15-20% - cont lasix, BB - cardiology following - treated with milrinone - stress test was done and showed fixed defect in the inferior wall - patient need life vest on discharge Volume overload with generalized anasarca - from acute CHF and renal failure - daily wt, monitor ins/os Bilateral pleural effusion - given Lasix UTI, treated with antibiotics, Bilateral hydronephrosis with possible bladder mass vs severe BPH - Urology consulted and recommended F/u with [place] Hypertensive urgency - Now on coreg and imdur Acute renal failure, 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 History Interval history: Patient was seen and evaluated this morning, patient's shortness of breath subsided. Bilateral leg swelling is getting better. Hospitalist Physical - Physical exam Narrative exam: Not in cardiopulmonary distress. The patient appeared well nourished and normally developed. Vital signs as documented. Head exam is unremarkable. No scleral icterus . Neck is without jugular venous distension, thyromegaly, or carotid bruits. Lungs are clear to auscultation. Cardiac exam reveals regular rate and Rhythm. First and second heart sounds normal. No murmurs, rubs or gallops. Abdominal exam reveals normal bowel sounds, no masses, no organomegaly and no aortic enlargement. Extremities +1 pedal and pretibial edema. CIVIL DESIGN SPECIALIST: Alert and oriented 3. No focal weakness. - Constitutional Vitals: Temp Pulse Resp BP Pulse Ox 98.6 F 78 20 140/85 96 08/30/17 07:54 08/30/17 07:54 08/30/17 07:54 08/30/17 07:54 08/30/17 07:54 General appearance: Present: no acute distress Results - Labs CBC & Chem 7: 08/29/17 07:16 08/29/17 07:16 Labs: Laboratory Last Values WBC 4.5 K/mm3 (4.5-11.0) 08/29/17 07:16 RBC 2.73 M/mm3 (3.65-5.03) L 08/29/17 07:16 Hgb 7.4 gm/dl (11.8-15.2) L 08/29/17 07:16 Hct 22.6 % (35.5-45.6) L 08/29/17 07:16 MCV 83 fl (84-94) L 08/29/17 07:16 MCH 27 pg (28-32) L 08/29/17 07:16 MCHC 33 % (32-34) 08/29/17 07:16 RDW 15.2 % (13.2-15.2) 08/29/17 07:16 Plt Count 343 K/mm3 (140-440) 08/29/17 07:16 Lymph % (Auto) 10.2 % (13.4-35.0) L 08/29/17 07:16 [place] % (Auto) 13.3 % (0.0-7.3) H 08/29/17 07:16 Eos % (Auto) 2.2 % (0.0-4.3) 08/29/17 07:16 Baso % (Auto) 0.7 % (0.0-1.8) 08/29/17 07:16 Lymph # 0.5 K/mm3 (1.2-5.4) L 08/29/17 07:16 [place] # 0.6 K/mm3 (0.0-0.8) 08/29/17 07:16 Eos # 0.1 K/mm3 (0.0-0.4) 08/29/17 07:16 Baso # 0.0 K/mm3 (0.0-0.1) 08/29/17 07:16 Seg Neutrophils % 73.6 % (40.0-70.0) H 08/29/17 07:16 Seg Neutrophils # 3.3 K/mm3 (1.8-7.7) 08/29/17 07:16 PT 14.3 Sec. (12.2-14.9) 08/18/17 06:06 INR 1.05 (0.87-1.13) 08/18/17 06:06 APTT 39.4 Sec. (24.2-36.6) H 08/18/17 06:06 Sodium 139 mmol/L (137-145) 08/29/17 07:16 Potassium 4.1 mmol/L (3.6-5.0) 08/29/17 07:16 Chloride 103.9 mmol/L (98-107) 08/29/17 07:16 Carbon Dioxide 25 mmol/L (22-30) 08/29/17 07:16 Anion Gap 14 mmol/L 08/29/17 07:16 BUN 18 mg/dL (9-20) 08/29/17 07:16 Creatinine 2.3 mg/dL (0.8-1.5) H 08/29/17 07:16 Estimated GFR 34 ml/min 08/29/17 07:16 BUN/Creatinine Ratio 8 % 08/29/17 07:16 Glucose 79 mg/dL (75-100) 08/29/17 07:16 POC Glucose 138 (70-105) H 08/27/17 21:55 Osmolality 308 Mosm/kg 08/18/17 10:31 Uric Acid 7.1 mg/dL (3.5-7.6) 08/18/17 10:31 Calcium 7.9 mg/dL (8.4-10.2) L 08/29/17 07:16 Magnesium 2.20 mg/dL (1.7-2.3) 08/18/17 06:06 Iron 19 ug/dL (49-181) L 08/23/17 09:35 TIBC 196 mcg/dL (250-450) L 08/23/17 09:35 Ferritin 122.6 ng/mL (13.0-400.0) 08/24/17 05:21 Total Bilirubin < 0.20 mg/dL (0.1-1.2) 08/19/17 20:22 Direct Bilirubin < 0.2 mg/dL (0-0.2) 08/19/17 20:22 Indirect Bilirubin 0.0 mg/dL 08/19/17 20:22 AST 12 units/L (5-40) 08/19/17 20:22 ALT 14 units/L (7-56) 08/19/17 20:22 Alkaline Phosphatase 62 units/L (35-129) 08/19/17 20:22 Total Creatine Kinase 92 units/L (55-170) 08/18/17 06:06 Troponin T 0.027 ng/mL (0.00-0.029) 08/18/17 06:06 NT-Pro-B Natriuret Pep 15546 pg/mL (0-900) H 08/18/17 06:06 Serum Total Protein 5.8 g/dL (6.1-8.1) L 08/18/17 10:31 Total Protein 5.6 g/dL (6.3-8.2) L 08/19/17 20:22 Albumin See scanned report 08/19/17 Unknown Albumin/Globulin Ratio 0.8 % 08/19/17 20:22 [id number] See scanned report 08/19/17 Unknown [id number] See scanned report 08/19/17 Unknown Beta Globulins See scanned report 08/19/17 Unknown Gamma Globulins See scanned report 08/19/17 Unknown Abnorm Protein Band 1 see below 08/18/17 10:31 PEP Interpretation See scanned report 08/19/17 Unknown Vitamin B12 533.2 pg/mL (211-911) 08/23/17 09:35 RBC Folic Acid >1000 ng/mL (>280) 08/23/17 09:35 TSH 2.700 mlU/mL (0.270-4.200) 08/19/17 20:22 Urine Color Yellow (Yellow) 08/18/17 06:34 Urine Turbidity Clear (Clear) 08/18/17 06:34 Urine pH 5.0 (5.0-7.0) 08/18/17 06:34 Ur Specific [place] 1.011 (1.003-1.030) 08/18/17 06:34 Urine Protein 100 mg/dl mg/dL (Negative) 08/18/17 06:34 Urine Glucose (UA) Neg mg/dL (Negative) 08/18/17 06:34 Urine Ketones Neg mg/dL (Negative) 08/18/17 06:34 Urine Blood Sm (Negative) 08/18/17 06:34 Urine Nitrite Neg (Negative) 08/18/17 06:34 Urine Bilirubin Neg (Negative) 08/18/17 06:34 Urine Urobilinogen < 2.0 mg/dL (<2.0) 08/18/17 06:34 Ur Leukocyte Esterase Lg (Negative) 08/18/17 06:34 Urine WBC (Auto) > 182.0 /HPF (0.0-6.0) H 08/18/17 06:34 Urine RBC (Auto) 14.0 /HPF (0.0-6.0) 08/18/17 06:34 Urine Bacteria (Auto) 2+ /HPF (Negative) 08/18/17 06:34 Urine WBC Clumps 3+ /HPF 08/18/17 06:34 Urine Osmolality 328 Mosm/kg 08/18/17 06:34 Ur Random Creatinine See scanned report 08/19/17 Unknown U Random Total Protein See scanned report 08/19/17 Unknown Urine Total Volume 3200 08/20/17 16:30 Urine Creatinine 42.7 mg/dL (0.1-20.0) H 08/19/17 Unknown Ur Total Protein 24 Hr 1440.00 (2-200) H 08/20/17 16:30 Protein/Creatinin Ratio See scanned report 08/19/17 Unknown Urine Sodium 80 mmol/L 08/19/17 Unknown Urine Chloride 54.4 mmolL (110-250) L 08/18/17 06:34 Urine Total Protein 45 mg/dL (5-11.8) H 08/20/17 16:30 U Abnormal Prot Band 1 See scanned report 08/19/17 Unknown U Abnormal Prot Band 2 See scanned report 08/19/17 Unknown U Abnormal Prot Band 3 See scanned report 08/19/17 Unknown Urine Opiates Screen Presumptive negative 08/18/17 06:34 Urine Methadone Screen Presumptive negative 08/18/17 06:34 Ur Barbiturates Screen Presumptive negative 08/18/17 06:34 Ur Phencyclidine Scrn Presumptive negative 08/18/17 06:34 Ur Amphetamines Screen Presumptive negative 08/18/17 06:34 U Benzodiazepines Scrn Presumptive negative 08/18/17 06:34 Urine Cocaine Screen Presumptive negative 08/18/17 06:34 U Marijuana (THC) Screen Presumptive negative 08/18/17 06:34 Drugs of Abuse Note Disclamer 08/18/17 06:34 Blood Type O POSITIVE 08/23/17 09:35 Antibody Screen Negative 08/23/17 09:35 Crossmatch See Detail 08/23/17 09:35
[2017-08-30] MEDS ORDERED: CHLORASEPTIC MM PRN (16:15)
--- NOTE | 2017-08-30 17:30 | Discharge Summary ---
Providers - Providers Date of Admission: 08/18/17 07:15 Date of discharge: 08/30/17 Attending physician: TOMY SULLIVAN MD 08/18/17 07:22 Consult to Physician [CONS] Urgent Comment: Consulting Provider: LEONARDO COTA Physician Instructions: Reason For Exam: new onset heart failur, htn 08/18/17 07:37 Consult to Physician [CONS] Urgent Comment: Consulting Provider: YESSENIA CUNNINGHAM Physician Instructions: Reason For Exam: new renal insuf, htn 08/20/17 11:11 Consult to Physician [CONS] Routine Comment: Consulting Provider: IVIS VERONICA Physician Instructions: Reason For Exam: bladder mass Primary care physician: [facility] Hospitalization Reason for admission: acute hypoxic respiratory failure, acute systolic CHF, hypertensive urgency Condition: Stable Pertinent studies: ECHO: 4 chamber dilated cardiomyopathy, ejection fraction 15-20% MPI: large but mostly fixed inferior defect, minimal reversibility, fragmented transmission artifact versus an old inferior myocardial infarction. Patient is not a candidate for coronary angiography as he is high risk for contrast nephropathy. In addition, patient has no chest pain. Renal ultrasound: Bilateral moderate hydronephrosis, Bladder mass Hospital course: 67-year-old male with a past medical history of hypertension (diagnosed 25 years ago and he has never took medications) presented to the hospital with complaints of generalized swelling and progressively worsening dyspnea on exertion for at least 3 weeks. Patient also c/o chronic orthopnea and can't remember the last time he was able lie flat. Patient denies chest pain, cough, or fever. In the ER his blood pressure was 180/107 on presentation. Initial labs notable for a creatinine of 3.3 and a hematocrit of 26.3. Patient will be admitted for further workup and management. Acute respiratory failure, resolved: Likely due to the CHF and pleural effusion resolved after treatment with Lasix and milnirone. Acute CHF with systolic dysfuction - 2d echo showed EF 15-20%, treated with IV Lasix, IV milrinone and BB, discharged with life vest. Patient was not given lasix at the time of discharge because of the MEREDITH. Follow up with [facility] in 1 week. Volume overload with generalized anasarca - Due to anemia of chronic illness and CHF Bilateral pleural effusion resolved with lasix UTI, treated with antibiotics, Bilateral hydronephrosis with bladder mass vs severe BPH- Urology consulted and recommended F/u with [facility] Hypertensive urgency controlled with coreg and imdur Acute renal failure, likely postobstructive nephropathy with CKD patient scheduled to see nephrology as an O/P. Anemia s/p one unit PRBC transfusion, need O/P f/u Patient was hemodynamically stable at the time of discharge, appropriate medications were given. Patient is scheduled to see urology, [place] [facility], nephrology and primary care physician. Disposition: TO HOME OR SELFCARE Time spent for discharge: 31 minutes - Discharge Diagnoses (1) Acute CHF (congestive heart failure) Status: Acute (2) Bladder mass Status: Acute (3) Hypertension, uncontrolled Status: Acute (4) Obstructive uropathy Status: Acute (5) Renal insufficiency Status: Acute (6) Anemia Status: Chronic (7) Dilated cardiomyopathy Status: Chronic Core Measure Documentation - Palliative Care Palliative Care/ Comfort Measures: Not Applicable - Core Measures Any of the following diagnoses?: heart failure - Heart Failure Discharge Requirements FELICIANO/ARB for LVSD if EF <40%: No Reason for no FELICIANO/ARB: Renal impairment Beta aaron at discharge: Yes Exam - Physical Exam Narrative exam: Not in cardiopulmonary distress. The patient appeared well nourished and normally developed. Vital signs as documented. Head exam is unremarkable. No scleral icterus . Neck is without jugular venous distension, thyromegaly, or carotid bruits. Lungs are clear to auscultation. Cardiac exam reveals regular rate and Rhythm. First and second heart sounds normal. No murmurs, rubs or gallops. Abdominal exam reveals normal bowel sounds, no masses, no organomegaly and no aortic enlargement. Extremities +1 pedal and pretibial edema. VOCATIONAL TEACHER: Alert and oriented 3. No focal weakness. - Constitutional Vitals: Temp Pulse Resp BP Pulse Ox 98.6 F 83 20 143/88 96 08/30/17 07:54 08/30/17 15:32 08/30/17 07:54 08/30/17 15:32 08/30/17 07:54 Plan Activity: no restrictions Weight Bearing Status: Full Weight Bearing Diet: low cholesterol, low salt Additional Instructions: follow @[facility] in [facility] week Follow up with: ROSA MARIA ALEX MD [Staff Physician] - 3 Days WILLA BIRCH MD [Staff Physician] - 7 Days JITENDRA CONNORS MD [Staff Physician] - 14 Days PRIMARY CARE, [Primary Care Provider] - 3-5 Days Prescriptions: AtorvaSTATin [Lipitor] 40 mg PO QHS #30 tablet Docusate Sodium [Colace CAP] 100 mg PO BID #60 capsule HYDROcodone/APAP 5-325 [[place] 5-325 mg TAB] 2 each PO Q6H PRN #60 tablet PRN Reason: Pain, Moderate (4-6) Isosorb Dinit/Hydralazine [Bidil 20/37.5MG] 1 each PO Q8HR #90 tablet Metoprolol [Lopressor TAB] 50 mg PO Q12HR #60 tablet Phenol 1.4% [Chloraseptic] 1 spray MM PRN PRN #1 bottle PRN Reason: Sore Throat
[2017-08-30 20:18] VITALS: BP 124/67
== END 2017-08-30 20:51 | disposition home or self-care (01) | DRG 291 ==
LOC: ED 00:49 → 4A 07:15
PROVIDERS: ADMIT Internal Medicine; ATTEND Internal Medicine
PROC: 30233N1 Transfusion of Nonautologous Red Blood Cells into Peripheral Vein, Percutaneous Approach (ICD-10-PCS; principal; 2017-08-23)
DX: I11.0 Hypertensive heart disease with heart failure (principal); J96.00 Acute respiratory failure, unspecified whether with hypoxia or hypercapnia; N39.0 Urinary tract infection, site not specified; N17.9 Acute kidney failure, unspecified; N13.30 Unspecified hydronephrosis; I50.23 Acute on chronic systolic (congestive) heart failure; I42.0 Dilated cardiomyopathy; D64.9 Anemia, unspecified; I16.0 Hypertensive urgency; N32.9 Bladder disorder, unspecified; Z91.14 Patient's other noncompliance with medication regimen; Z82.49 Family history of ischemic heart disease and other diseases of the circulatory system
CPT/HCPCS: 36415; 71046; 76770; 78452; 80048; 80074; 80307; 81001; 82270; 82436; 82550; 82565; 82570; 82607; 82728; 82747; 82962; 83550; 83735; 83880; 83930; 83935; 84156; 84165; 84166; 84300; 84443; 84484; 84550; 85014; 85018; 85025; 85610; 85730; 86850; 86900; 86901; 86920; 87086; 93005; 93010; 93017; 93306; A9270-GY; A9502; J0696; J1644; J1940; J1956; J2260; J2785; J7050; P9016

== ENCOUNTER 2017-11-25 10:00 | Inpatient (IN) | payer MEDICARE ==
[2017-11-25 11:39] LABS: Basophils % (Auto) 0.3 % (0.0-1.8); Eosinophils % (Auto) 0.4 % (0.0-4.3); Hematocrit 32.4 % (35.5-45.6); Hemoglobin 10.6 gm/dl (11.8-15.2); Lymphocytes # (Auto) 0.5 K/mm3 (1.2-5.4); Lymphocytes % (Auto) 10.1 % (13.4-35.0); Mean Corpuscular HGB Conc 33 % (32-34); Mean Corpuscular Hemoglobin 27 pg (28-32); Mean Corpuscular Volume 83 fl (84-94); Monocytes # (Auto) 0.3 K/mm3 (0.0-0.8); Platelet Count 194 K/mm3 (140-440); Red Blood Count 3.92 M/mm3 (3.65-5.03)
[2017-11-25 11:48] LABS: INR 0.96 (0.87-1.13); Partial Thromboplastin Time 33.7 Sec. (24.2-36.6)
[2017-11-25 12:06] LABS: Albumin 3.7 g/dL (3.9-5); Calcium 8.6 mg/dL (8.4-10.2)
--- NOTE | 2017-11-25 12:56 | Anesthesia Consultation ---
Anesthesia Consult and Med Hx Date of service: 11/25/17 - Airway Anesthetic Teeth Evaluation: Poor, Chipped (numerous) ROM Head & Neck: Adequate Mental/Hyoid Distance: Adequate Mallampati Class: Class II Intubation Access Assessment: Probably Good - Pulmonary Exam CTA: Yes - Cardiac Exam Cardiac Exam: RRR - Pre-Operative Health Status ASA Pre-Surgery Classification: ASA4 Proposed Anesthetic Plan: Epidural (place early and bring to level very slowly so that IV bolus not required) - Pulmonary Hx Smoking: Yes (STOPPED X 30 YRS) SOB: Yes (SOB) Hx Pneumonia: Yes (08/2017/ RESOLVED) Hx Sleep Apnea: No (JULIETTE PRE SCREEN HIGH RISK) - Cardiovascular System Hx Hypertension: Yes (X 25 YRS, BUT JUST RECENTLY STARTED MEDS) Hx Internal Defibrillator: No (wearing an external defibrillator at this time with CHF/history of Vtach) - Central Nervous System Hx Psychiatric Problems: No - Endocrine Hx Renal Disease: Yes (CKD w/ creatinine of 2.4) - Hematic Hx Anemia: Yes - Other Systems Hx Cancer: Yes (MALIGNANT MYELOMA-[place]= SURGERY/RADIATION 1985) - Additional Comments Anesthesia Medical History Comments: 08/2017 hospitalized with anasarca, fluid overload, heart failure. severy dialated CM, EF 15-20% on ECHO. fixed inferior defect w/o ischemia. life vest for NSVT on telemonitor. Proj Mgr statement : 'Moderate risk for shannan-op fluid overload, ventricular arrhythmias. OK to proceed with urological surgery. Judicious use of IV fluids and colloids to avoid fluid overload.' The TURP procedure itself can lead to fluid overload. Continue Coreg perisurgically. If surgeon must do TURP, the surgeon MUST utilize minimal pressure on irrigation fluid. I suggest epidural placement with slowly raising the level and continuously monitoring the vital signs so that anesthesiology can monitor for altered mental status.
[2017-11-29] MEDS ORDERED: NACL BACTERIOSTATIC INFILTRATI ONE (08:34)
[2017-11-29] MEDS ORDERED: ZOFRAN IV PRN (08:35)
[2017-11-29] MEDS ORDERED: DILAUDID IV PRN (08:35)
[2017-11-29] MEDS: NACL 0.9% 1000 ML 1,000 ML IV SCH (09:35)
[2017-11-29] MEDS ORDERED: PEPCID IV ONE (09:40)
[2017-11-29] MEDS ORDERED: AMIDATE IV ONE (10:28)
[2017-11-29] MEDS ORDERED: SUBLIMAZE ONE (10:28)
[2017-11-29] MEDS ORDERED: XYLOCAINE CARDIAC IV ONE (10:28)
[2017-11-29] MEDS ORDERED: ROBINUL ONE (10:30)
[2017-11-29] MEDS ORDERED: ePHEDrine SULFATE ONE (10:30)
[2017-11-29] MEDS ORDERED: NACL P/F VIAL (10 ML) 10 ML ONE (10:33)
[2017-11-29] MEDS ORDERED: ANCEF/STERILE WATER 2 GM/20 ML IV NR (11:00)
[2017-11-29] MEDS ORDERED: GARAMYCIN ONE (11:07)
[2017-11-29] MEDS ORDERED: METHYLENE BLUE ONE (11:25)
[2017-11-29] MEDS ORDERED: ZOFRAN ONE (11:28)
--- NOTE | 2017-11-29 12:01 | Anesthesia Consultation ---
Anesthesia Consult and Med Hx Date of service: 11/29/17 - Airway Anesthetic Teeth Evaluation: Poor, Chipped, Edentulous ROM Head & Neck: Adequate Mental/Hyoid Distance: Adequate Mallampati Class: Class II Intubation Access Assessment: Probably Good - Pulmonary Exam CTA: Yes - Cardiac Exam Cardiac Exam: RRR - Pre-Operative Health Status ASA Pre-Surgery Classification: ASA3 Proposed Anesthetic Plan: General (pt has external defib. ) - Pulmonary Hx Smoking: Yes (STOPPED X 30 YRS) SOB: Yes (SOB) Hx Pneumonia: Yes (08/2017/ RESOLVED) Hx Sleep Apnea: No (JULIETTE PRE SCREEN HIGH RISK) - Cardiovascular System Hx Hypertension: Yes (X 25 YRS, BUT JUST RECENTLY STARTED MEDS) Hx Internal Defibrillator: No (wearing an external defibrillator at this time with CHF/history of Vtach) - Central Nervous System Hx Psychiatric Problems: No - Endocrine Hx Renal Disease: Yes (CKD w/ creatinine of 2.4) - Hematic Hx Anemia: Yes - Other Systems Hx Cancer: Yes (MALIGNANT MYELOMA-[place]= SURGERY/RADIATION 1985) - Additional Comments Anesthesia Medical History Comments: 08/2017 hospitalized with anasarca, fluid overload, heart failure. severy dialated CM, EF 15-20% on ECHO. fixed inferior defect w/o ischemia. life vest for NSVT on telemonitor. Occupational Health And Safety Manager statement : 'Moderate risk for shannan-op fluid overload, ventricular arrhythmias. OK to proceed with urological surgery. Judicious use of IV fluids and colloids to avoid fluid overload.' The TURP procedure itself can lead to fluid overload. Continue Coreg perisurgically. If surgeon must do TURP, the surgeon MUST utilize minimal pressure on irrigation fluid. I suggest epidural placement with slowly raising the level and continuously monitoring the vital signs so that anesthesiology can monitor for altered mental status.
--- NOTE | 2017-11-29 12:01 | Anesthesia Day of Surgery ---
Anesthesia Day of Surgery - Day of Surgery Patient Examined: Yes Patient H&P Reviewed: Yes Patient is NPO: Yes
[2017-11-29] MEDS ORDERED: NACL 0.9% IR PRN (12:16)
--- NOTE | 2017-11-29 12:16 | Post Operative Note ---
Date of procedure: 11/29/17 Pre-op diagnosis: urinary retention Post-op diagnosis: same Findings: nodular trilobar Procedure: youngblood nodular Anesthesia: GETA Surgeon: ROSA MARIA ALEX Estimated blood loss: other (150) Pathology: list (prostate) Specimen disposition: to lab Condition: stable Disposition: PACU
[2017-11-29] MEDS ORDERED: AMBIEN PO PRN (12:19)
[2017-11-29] MEDS ORDERED: APRESOLINE IV ONE (13:10)
--- NOTE | 2017-11-29 13:10 | Post Anesthesia Evaluation ---
- Post Anesthesia Evaluation Patient Participated: Yes Airway Patent: Yes Stable Respiratory Function: Yes Nausea/Vomiting: No Temp > 96.8F: Yes Pain Manageable: Yes Adequeate Hydration: Yes Anesthesia Complications: No (pt tolerated anesthesia wewll. no prob in BP or HR. Minimal fluids. Ga/LMA)
[2017-11-29] MEDS ORDERED: APRESOLINE ONE (13:12)
[2017-11-29 13:22] LABS: Hematocrit 30.7 % (35.5-45.6); Hemoglobin 10.2 gm/dl (11.8-15.2); Mean Corpuscular HGB Conc 33 % (32-34); Mean Corpuscular Hemoglobin 28 pg (28-32); Mean Corpuscular Volume 82 fl (84-94); Platelet Count 164 K/mm3 (140-440); Red Blood Count 3.72 M/mm3 (3.65-5.03)
[2017-11-29 13:47] LABS: Calcium 8.6 mg/dL (8.4-10.2)
--- NOTE | 2017-11-29 13:56 | Fluoroscopy Report ---
FLUOROSCOPY CYSTOGRAM STATIC-OR History: Hydronephrosis. Findings: Fluoroscopy was provided by radiology during intraoperative cystogram by the urologist. 3 fluoroscopic images were captured. The bladder appears markedly distended with the dome of the bladder extending up to the level of L3. There is no gross filling defect or extravasation of contrast. No vesicoureteral reflux is appreciated. TURP was also performed per the operative notes. The final image demonstrates complete emptying of the bladder. Please correlate with the procedural report as needed.
[2017-11-29] MEDS ORDERED: NON-FORMULARY (Hydralazine Hcl [Hydralazine Hcl] 50 MG) PO SCH (14:00)
--- NOTE | 2017-11-29 19:49 | Operative Report ---
PREOPERATIVE DIAGNOSES: Urinary retention, floppy bladder. POSTOPERATIVE DIAGNOSES: Urinary retention, floppy bladder. PROCEDURE: Cystoscopy, transurethral resection and incision of the prostate. SURGEON: Laci Russo MD ANESTHESIA: General. FINDINGS: This is a gentleman with multiple comorbidities including renal failure, heart failure with progressive urinary retention. He has been on antibiotics. He has been on intermittent catheterization. He has minimal contraction, but we will try to give him a channel. He has a very nodular irregular prostate. All risks and complications were discussed. He knows he may not void after. He wanted a circumcision and he asked for the circumcision right before the surgery. At this point, I did not think doing it right before seeing him in the holding area. It depends on how the procedure went and we can always do this later on in the office. DESCRIPTION OF PROCEDURE: The patient was brought to the operating room and placed on the operating table. Following induction of anesthesia, placed in lithotomy position, prepped and draped in usual sterile fashion. His foreskin was nice and clean. He just wanted this for " The resectoscope was inserted and the prostate was very nodular, especially going towards the trigone on the left side. We looked inside the bladder, which was very floppy, was not very trabeculated, maybe 1+ trabeculated. At this point, resection was begun to the middle lobe down focusing on the right side. He occasionally had an obturator reflex. The middle lobe was resected and there was tissue coming down, especially from the right side. Once this was free, there was no significant bleeding. We tried it gingerly to take some of the nodularity off of the trigone. It looked benign, but it was extensive and a couple of nodules which had to be taken down in order to open up the channel. The tissue just fell down when we did the right lobe, so we saw the right orifice well. We gave him blue, but his creatinine is high, did not show up on either side. The patient tolerated the procedure well. We evacuated out all the chips. We did not do a full resection on the left lobe because of the nodularity and how it covered the trigone. We cauterized everything and we incised, we used a transversus incision as well. It looked to be open and I spoke to the family, I did not do the circumcision. He may be better off having eventually a suprapubic tube and the circumcision which can be done at a later date, but lets us if he voids afterwards. Tolerated the procedure well. I spoke to Dr. Guillaume. We will follow his hypertension, Benitez drip was minimally tinged to clear, taken to recovery in stable condition. JOB# [id number] MARQUEZ/MILLY
[2017-11-29] MEDS: NACL 0.9% IR SCH ×3 (20:49→23:37)
[2017-11-29] MEDS: ANCEF/NS 1 GM/50 ML 1 GM/50 ML BAG IV SCH (20:54)
[2017-11-29] MEDS: APRESOLINE PO SCH ×2 (22:54→22:56)
[2017-11-29] MEDS: COLACE PO SCH (22:56)
[2017-11-29] MEDS: PERCOCET 5/325 PO PRN (22:58)
[2017-11-29] MEDS: COREG PO SCH (22:59)
[2017-11-29] MEDS: MONOKET PO SCH (23:37)
[2017-11-30] MEDS: MONOKET PO SCH ×2 (00:34→09:21)
[2017-11-30] MEDS: NACL 0.9% IR SCH ×4 (01:45→09:27)
[2017-11-30] MEDS: ANCEF/NS 1 GM/50 ML 1 GM/50 ML BAG IV SCH ×3 (04:02→18:31)
[2017-11-30] MEDS: APRESOLINE PO SCH ×3 (06:50→22:32)
--- NOTE | 2017-11-30 06:58 | Consultation ---
History of Present Illness - Reason for Consult Consult date: 11/29/17 Medical management Requesting physician: ROSA MARIA ALEX - History of Present Illness /p TURp --Doing well. Resting in bed Past History Past Medical History: CAD, hypertension Past Surgical History: TURP Social history: no significant social history, lives with family, full code Family history: hypertension Medications and Allergies Allergies Allergy/AdvReac Type Severity Reaction Status Date / Time No Known Allergies Allergy Verified 11/12/17 11:35 Home Medications Medication Instructions Recorded Confirmed Last Taken Type Docusate Sodium [Colace CAP] 100 mg PO BID #60 capsule 08/30/17 11/25/17 Unknown Rx Aspirin [Lo-Dose Aspirin EC] 81 mg PO DAILY 11/25/17 11/29/17 11/15/17 History Carvedilol [Coreg] 25 mg PO BID 11/25/17 11/29/17 11/28/17 History Hydralazine HCl 50 mg PO TID 11/25/17 11/29/17 11/28/17 History ISOSORBIDE MONOnitrate [Monoket] 20 mg PO BID 11/29/17 11/29/17 11/28/17 History Iron 65 mg PO QDAY 11/29/17 11/29/17 11/28/17 History Active Meds: Active Medications Carvedilol (Coreg) 25 mg PO BID [facility] Last Admin: 11/29/17 22:59 Dose: 25 mg Docusate Sodium (Colace) 100 mg PO BID [facility] Last Admin: 11/29/17 22:56 Dose: 100 mg Ferrous Sulfate (Feosol) 325 mg PO DAILY [facility] Hydralazine HCl (Apresoline) 50 mg PO Q8HR [facility] Last Admin: 11/30/17 06:50 Dose: Not Given Sodium Chloride (Nacl 0.9% 1000 Ml) 1,000 mls @ 42 mls/hr IV DIRECT [facility] Last Admin: 11/29/17 09:35 Dose: 42 mls/hr Cefazolin Sodium (Ancef/Ns 1 Gm/50 Ml) 1 gm in 50 mls @ 100 mls/hr IV Q8H [facility]; Protocol Stop: 11/30/17 19:29 Last Admin: 11/30/17 04:02 Dose: 100 mls/hr Isosorbide Mononitrate (Monoket) 20 mg PO BID [facility] Last Admin: 11/29/17 23:37 Dose: 20 mg Oxycodone/Acetaminophen (Percocet 5/325) 1 tab PO Q4H PRN PRN Reason: Pain, Moderate (4-6) Last Admin: 11/29/17 22:58 Dose: 1 tab Sodium Chloride (Nacl 0.9%) 30 ml IR Q2H PRN PRN Reason: Wound Care Sodium Chloride (Nacl 0.9%) 2,000 ml IR DIRECT [facility] Last Admin: 11/30/17 06:48 Dose: 2,000 ml Zolpidem Tartrate (Ambien) 5 mg PO QHS PRN PRN Reason: Sleep Review of Systems All systems: negative Exam - Constitutional Vitals: Temp Pulse Resp BP Pulse Ox 98.7 F 65 20 90/50 99 11/30/17 04:58 11/30/17 06:50 11/30/17 04:58 11/30/17 06:50 11/30/17 04:58 General appearance: Present: no acute distress, well-nourished - EENT Eyes: Present: PERRL ENT: hearing intact, clear oral mucosa - Neck Neck: Present: supple, normal ROM - Respiratory Respiratory effort: normal Respiratory: bilateral: CTA - Cardiovascular Heart Sounds: Present: S1 & S2. Absent: rub, click - Extremities Extremities: pulses symmetrical, No edema Peripheral Pulses: within normal limits - Abdominal General gastrointestinal: Present: soft, non-tender, non-distended, normal bowel sounds Male genitourinary: Present: normal - Integumentary Integumentary: Present: clear, warm, dry - Musculoskeletal Musculoskeletal: gait normal, strength equal bilaterally - Psychiatric Psychiatric: appropriate mood/affect, intact judgment & insight - Neurologic Neurologic: CNII-XII intact, moves all extremities Results - Labs CBC & Chem 7: 11/29/17 13:10 11/29/17 13:10 Labs: Abnormal lab results 11/29/17 11/29/17 Range/Units 13:10 13:10 Hgb 10.2 L (11.8-15.2) gm/dl Hct 30.7 L (35.5-45.6) % MCV 82 L (84-94) fl RDW 17.0 H (13.2-15.2) % BUN 28 H (9-20) mg/dL Creatinine 2.3 H (0.8-1.5) mg/dL Assessment and Plan - Patient Problems (1) MEREDITH (acute kidney injury) Current Visit: No Status: Acute Plan to address problem: IV Fluids for now Baseline Bun/cr =18/2.4 on Aug 28 2017 May not improve much (2) HTN (hypertension) Current Visit: Yes Status: Chronic Qualifiers: Hypertension type: essential hypertension Qualified Code(s): I10 - Essential (primary) hypertension Plan to address problem: Cont antihypertensives (3) CAD (coronary artery disease) Current Visit: Yes Status: Chronic Qualifiers: Coronary Disease-Associated Artery/Lesion type: [place] artery [place] vs. transplanted heart: [place] heart Plan to address problem: Cont Isosorbide and ASA (4) Anemia Current Visit: Yes Status: Chronic Qualifiers: Anemia type: iron deficiency Plan to address problem: On Iron supplements (5) DVT prophylaxis Current Visit: Yes Status: Acute Plan to address problem: On Scd's
[2017-11-30] MEDS: NACL 0.9% 1000 ML 1,000 ML IV SCH ×2 (09:19→19:56)
[2017-11-30] MEDS: FEOSOL PO SCH (09:19)
[2017-11-30] MEDS: COLACE PO SCH ×2 (09:19→22:28)
[2017-11-30] MEDS: COREG PO SCH ×2 (09:20→23:33)
[2017-11-30] MEDS ORDERED: IRON 65 MG PO SCH (10:00)
--- NOTE | 2017-11-30 11:00 | Progress Note ---
Assessment and Plan urine clear labs noted f/u as out pt b/p monitering per medicine Subjective Date of service: 11/30/17 Principal diagnosis: urinary retention Objective - Constitutional Vitals: Vital Signs - 12hr 11/29/17 11/30/17 11/30/17 23:23 04:58 06:50 Temperature 99.3 F 98.7 F Pulse Rate 64 65 65 Respiratory 20 20 Rate Blood Pressure 157/67 90/50 90/50 O2 Sat by Pulse 100 99 Oximetry 11/30/17 11/30/17 08:27 09:20 Temperature 98.4 F Pulse Rate 62 62 Respiratory 18 Rate Blood Pressure 74/41 74/41 O2 Sat by Pulse 100 Oximetry General appearance: Present: no acute distress - Neck Neck: supple - Respiratory Respiratory effort: normal Extremities: no ischemia - Gastrointestinal General gastrointestinal: Present: soft, non-tender - Labs CBC & Chem 7: 11/29/17 13:10 11/29/17 13:10 Labs: Abnormal lab results 11/29/17 11/29/17 Range/Units 13:10 13:10 Hgb 10.2 L (11.8-15.2) gm/dl Hct 30.7 L (35.5-45.6) % MCV 82 L (84-94) fl RDW 17.0 H (13.2-15.2) % BUN 28 H (9-20) mg/dL Creatinine 2.3 H (0.8-1.5) mg/dL
--- NOTE | 2017-11-30 11:02 | Discharge Summary ---
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
[2017-11-30] MEDS: PERCOCET 5/325 PO PRN ×2 (16:15→22:28)
--- NOTE | 2017-11-30 23:52 | Progress Note ---
Assessment and Plan (1) MEREDITH (acute kidney injury) Current Visit: No Status: Acute Plan to address problem: IV Fluids for now Baseline Bun/cr =18/2.4 on Aug 28 2017 May not improve much. Will f/u with Nephrology (2) Hypotension (hypertension) IV NS if improved will should be discharged home Hold oral antihypertensives (3) CAD (coronary artery disease) Cont Isosorbide and ASA (4) Anemia Likely from Chronic disease On Iron supplements (5) DVT prophylaxis On Scd's Subjective Date of service: 11/30/17 Principal diagnosis: urinary retention s/p TURP Interval history: no new complaint. Had hypotension per Nurse with BP 71/35. Objective - Constitutional Vitals: Vital Signs - 12hr 11/30/17 11/30/17 11/30/17 12:41 16:11 16:15 Temperature 99.1 F 98.3 F Pulse Rate 57 L 58 L Respiratory 18 18 20 Rate Blood Pressure 86/47 102/54 O2 Sat by Pulse 100 100 Oximetry 11/30/17 11/30/17 19:46 19:53 Temperature 98.1 F Pulse Rate 57 L Respiratory 18 Rate Blood Pressure 101/52 O2 Sat by Pulse 100 Oximetry General appearance: Present: no acute distress, well-nourished, other (Has a Santana with clearing usrine following TURP) - EENT Eyes: PERRL, EOM intact Ears: bilateral: normal - Neck Neck: supple, normal ROM - Respiratory Respiratory effort: normal Respiratory: bilateral: CTA - Cardiovascular Rhythm: regular Heart Sounds: Present: S1 & S2. Absent: gallop, rub Extremities: pulses intact, No edema, normal color, Full ROM - Gastrointestinal General gastrointestinal: Present: soft, non-tender, non-distended, normal bowel sounds - Integumentary Integumentary: clear, warm, dry - Musculoskeletal Musculoskeletal: 1, strength equal bilaterally - Neurologic Neurologic: moves all extremities - Psychiatric Psychiatric: memory intact, appropriate mood/affect, intact judgment & insight - Labs CBC & Chem 7: 11/29/17 13:10 11/29/17 13:10
[2017-12-01 06:31] LABS: Basophils % (Auto) 0.1 % (0.0-1.8); Eosinophils # (Auto) 0.1 K/mm3 (0.0-0.4); Eosinophils % (Auto) 2.5 % (0.0-4.3); Hematocrit 27.4 % (35.5-45.6); Hemoglobin 9.1 gm/dl (11.8-15.2); Lymphocytes # (Auto) 0.7 K/mm3 (1.2-5.4); Mean Corpuscular HGB Conc 33 % (32-34); Mean Corpuscular Hemoglobin 28 pg (28-32); Mean Corpuscular Volume 84 fl (84-94); Monocytes # (Auto) 0.7 K/mm3 (0.0-0.8); Monocytes % (Auto) 12.6 % (0.0-7.3); Platelet Count 124 K/mm3 (140-440); Red Blood Count 3.26 M/mm3 (3.65-5.03); Red Cell Distribution Width 16.8 % (13.2-15.2)
[2017-12-01 06:51] LABS: Albumin 2.8 g/dL (3.9-5); BUN/Creatinine Ratio 10; Blood Urea Nitrogen 24 mg/dL (9-20); Calcium 8.1 mg/dL (8.4-10.2); Hemolysis Index 11
[2017-12-01 06:53] LABS: Alanine Aminotransferase < 5 units/L (7-56)
[2017-12-01] MEDS: APRESOLINE PO SCH ×2 (07:31→14:00)
[2017-12-01] MEDS: COLACE PO SCH (10:00)
[2017-12-01] MEDS: COREG PO SCH (10:00)
[2017-12-01] MEDS: MONOKET PO SCH (10:00)
[2017-12-01] MEDS: FEOSOL PO SCH (10:00)
--- NOTE | 2017-12-01 10:13 | Progress Note ---
Assessment and Plan (1) MEREDITH (acute kidney injury) Current Visit: No Status: Acute Plan to address problem: IV Fluids for now Baseline Bun/cr =18/2.4 on Aug 28 2017 May not improve much. Will f/u with Nephrology (2) Hypotension (hypertension) resolved with IV NS May be discharged home Hold oral antihypertensives (3) CAD (coronary artery disease) Cont Isosorbide and ASA (4) Anemia Likely from Chronic disease On Iron supplements (5) DVT prophylaxis On Scd's (6) May d/c home from medicine stand point on Ferrous sulfate 325 mg qd f/u with PCP in 3-5 day and Nephrology for CKD in 5-7 days Subjective Date of service: 12/01/17 Principal diagnosis: urinary retention s/p TURP Interval history: no new complaint. BP improved. Objective - Exam Narrative Exam: Constitutional: Well-nourished well-developed. In no distress Head: Normocephalic atraumatic Eyes: Pupils are equal round and reactive to light Nose: No enlarged turbinates, no septal deviation. Mouth: Moist mucous membranes. Neck: Supple no thyromegaly. No bruit. No JVD Heart: Regular rate and rhythm, S1-S2 abnormal. No rubs murmurs or gallop Lungs: Clear to auscultation bilaterally no rales or rhonchi Abdomen: Soft, nontender. Bowel sound are present. Extremities: No edema no cyanosis and no clubbing. Neuro: Alert oriented Oriented x3. No focal sensory or motor deficit. SUNITHA: Has a Santana catheter in place. Urine drainage is clearing of blood Skin: No rashes no hyperemic spots Psychiatry: Euthymic. Calm. - Constitutional Vitals: Vital Signs - 12hr 12/01/17 12/01/17 12/01/17 04:30 04:32 04:41 Temperature 98.1 F Pulse Rate 61 61 62 Blood Pressure 121/53 Blood Pressure 121/53 [Right] O2 Sat by Pulse 100 100 Oximetry - Labs CBC & Chem 7: 12/01/17 06:10 12/01/17 06:10 Labs: Abnormal lab results 12/01/17 12/01/17 Range/Units 06:10 06:10 RBC 3.26 L (3.65-5.03) M/mm3 Hgb 9.1 L (11.8-15.2) gm/dl Hct 27.4 L (35.5-45.6) % RDW 16.8 H (13.2-15.2) % Plt Count 124 L (140-440) K/mm3 Lymph % (Auto) 13.0 L (13.4-35.0) % [place] % (Auto) 12.6 H (0.0-7.3) % Lymph # 0.7 L (1.2-5.4) K/mm3 Seg Neutrophils % 71.8 H (40.0-70.0) % BUN 24 H (9-20) mg/dL Creatinine 2.4 H (0.8-1.5) mg/dL Calcium 8.1 L (8.4-10.2) mg/dL ALT < 5 L (7-56) units/L Total Protein 5.4 L (6.3-8.2) g/dL Albumin 2.8 L (3.9-5) g/dL
[2017-12-01 13:35] VITALS: BP 144/61
--- NOTE | 2017-12-01 15:33 | Progress Note ---
Assessment and Plan min tinged urine home today ?? floppy bladder Subjective Date of service: 12/01/17 Principal diagnosis: urinary retention s/p TURP Objective - Constitutional Vitals: Vital Signs - 12hr 12/01/17 12/01/17 12/01/17 04:30 04:32 04:41 Temperature 98.1 F Pulse Rate 61 61 62 Respiratory Rate Blood Pressure 121/53 Blood Pressure 121/53 [Right] O2 Sat by Pulse 100 100 Oximetry 12/01/17 12/01/17 07:28 12:16 Temperature 98.3 F 98.2 F Pulse Rate 64 Respiratory 18 18 Rate Blood Pressure 137/64 144/61 Blood Pressure [Right] O2 Sat by Pulse 97 Oximetry General appearance: Present: no acute distress - Respiratory Respiratory effort: normal Extremities: no ischemia - Gastrointestinal General gastrointestinal: Present: non-tender - Labs CBC & Chem 7: 12/01/17 06:10 12/01/17 06:10 Labs: Abnormal lab results 12/01/17 12/01/17 Range/Units 06:10 06:10 RBC 3.26 L (3.65-5.03) M/mm3 Hgb 9.1 L (11.8-15.2) gm/dl Hct 27.4 L (35.5-45.6) % RDW 16.8 H (13.2-15.2) % Plt Count 124 L (140-440) K/mm3 Lymph % (Auto) 13.0 L (13.4-35.0) % [place] % (Auto) 12.6 H (0.0-7.3) % Lymph # 0.7 L (1.2-5.4) K/mm3 Seg Neutrophils % 71.8 H (40.0-70.0) % BUN 24 H (9-20) mg/dL Creatinine 2.4 H (0.8-1.5) mg/dL Calcium 8.1 L (8.4-10.2) mg/dL ALT < 5 L (7-56) units/L Total Protein 5.4 L (6.3-8.2) g/dL Albumin 2.8 L (3.9-5) g/dL
== END 2017-12-01 20:50 | disposition home or self-care (01) | DRG 713 ==
LOC: EDSTATUS 10:00 → UNDOADMIN 10:22 → 3A 10:22 → 3B-SURG 11-29 13:31
PROVIDERS: ADMIT Urology; ATTEND Urology
PROC: 0VB08ZZ Excision of Prostate, Via Natural or Artificial Opening Endoscopic (ICD-10-PCS; principal; 2017-11-29)
PROC: 0TJB8ZZ Inspection of Bladder, Via Natural or Artificial Opening Endoscopic (ICD-10-PCS; 2017-11-29)
DX: N40.3 Nodular prostate with lower urinary tract symptoms (principal); I13.0 Hypertensive heart and chronic kidney disease with heart failure and stage 1 through stage 4 chronic kidney disease, or unspecified chronic kidney disease; N17.9 Acute kidney failure, unspecified; I50.22 Chronic systolic (congestive) heart failure; I42.0 Dilated cardiomyopathy; R33.8 Other retention of urine; I95.9 Hypotension, unspecified; I25.10 Atherosclerotic heart disease of native coronary artery without angina pectoris; D50.9 Iron deficiency anemia, unspecified; I11.0 Hypertensive heart disease with heart failure; N18.9 Chronic kidney disease, unspecified; Z82.49 Family history of ischemic heart disease and other diseases of the circulatory system; Z87.891 Personal history of nicotine dependence; Z87.01 Personal history of pneumonia (recurrent); Z85.89 Personal history of malignant neoplasm of other organs and systems
CPT/HCPCS: 36415; 74430; 80048; 80053; 85025; 85027; 85610; 85730; 86850; 86900; 86901; 88305; A4217; J0360; J0690; J1170; J1580; J2001; J2405; J3010; J7030; Q9967; Q9968